=== PATIENT | male | born 1945 | race Caucasian/White ===

== ENCOUNTER 2020-12-07 16:01 | Inpatient (IN) | payer MEDICARE, OTHER ==
[~2020-12-07] VITALS: Ht 185.5 cm; Wt 57.0 kg
[2020-12-07] MEDS ORDERED: HYDR-3820 PO (16:05)
[2020-12-07 17:00] VITALS: BP 134/82
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
[2020-12-07 20:00] VITALS: BP 132/61
[2020-12-08 07:30] VITALS: BP 115/58
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
[2020-12-08] MEDS ORDERED: FLEET ENEMA ADULT 1 EA BTL PR PRN (12:15)
[2020-12-08] MEDS ORDERED: ALPRAZolam 0.25 MG (XANAX) TAB PO PRN (12:15)
[2020-12-08] MEDS ORDERED: LACTULOSE SYRUP 10GM/15ML (ENULOSE) 30ML UDC PO PRN (12:15)
[2020-12-08] MEDS ORDERED: diphenhydrAMINE 25 MG TAB (BENADRYL) PO PRN (12:15)
[2020-12-08] MEDS ORDERED: LOPERAMIDE 2 MG (IMODIUM) TABLET PO PRN (12:15)
[2020-12-08] MEDS ORDERED: guaiFENesin/CODEINE (ROBITUSSIN AC) 10ML UDC PO PRN (12:15)
[2020-12-08] MEDS ORDERED: MELATONIN 3 MG TABLET PO PRN (12:15)
[2020-12-08] MEDS ORDERED: CALCIUM CARBONATE 500 MG (TUMS) TAB.CHEW PO PRN (12:15)
[2020-12-08] MEDS ORDERED: ACETAMINOPHEN 325 MG TABLET PO PRN (12:15)
[2020-12-08] MEDS ORDERED: CATHETER FLUSH 10 ML SYR IV PRN (12:15)
[2020-12-08] MEDS ORDERED: DOCUSATE SODIUM 100 MG (COLACE) CAP PO PRN (12:15)
[2020-12-08] MEDS: CATHETER FLUSH 10 ML SYR IV SCH ×2 (13:17→22:53)
[2020-12-08] MEDS: BISACODYL 10 MG SUPP (DULCOLAX) PR PRN (14:54)
[2020-12-08 20:00] VITALS: BP 118/61
[2020-12-08] MEDS: DOCUSATE SODIUM 100 MG (COLACE) CAP PO SCH (20:14)
[2020-12-08] MEDS: polyethylene glycoL POWDER 17 GM (MIRALAX) PACK PO SCH (20:14)
[2020-12-08] MEDS: SENNA W/DOCUSATE (SENOKOT S) TABLET PO SCH (20:20)
[2020-12-09] MEDS: CATHETER FLUSH 10 ML SYR IV SCH ×3 (06:09→21:46)
[2020-12-09 06:13] LABS: HEMATOCRIT 30 % (40-54); MEAN CORPUSCULAR VOLUME 90 fL (80-99)
[2020-12-09 06:15] LABS: BASOPHILS % (AUTO) 0 % (0-10); EOSINOPHILS # (AUTO) 0.1 10^3/uL (0.0-0.3); EOSINOPHILS % (AUTO) 2 % (0-10); HEMOGLOBIN 9.7 g/dL (13.3-17.7); LYMPHOCYTES # (AUTO) 0.9 10^3/uL (1.0-4.0); LYMPHOCYTES % (AUTO) 11 % (12-44); MEAN CORPUSCULAR HEMOGLOBIN 30 pg (25-34); MEAN CORPUSCULAR HGB CONC 33 g/dL (32-36); MONOCYTES # (AUTO) 0.6 10^3/uL (0.0-1.0); MONOCYTES % (AUTO) 7 % (0-12); NEUTROPHILS # (AUTO) 6.3 10^3/uL (1.8-7.8); NEUTROPHILS % (AUTO) 80 % (42-75); PLATELET COUNT 103 10^3/uL (130-400); WHITE BLOOD COUNT 7.9 10^3/uL (4.3-11.0)
[2020-12-09 06:27] LABS: CHLORIDE 101 MMOL/L (98-107); POTASSIUM 3.9 MMOL/L (3.6-5.0); SODIUM 137 MMOL/L (135-145)
[2020-12-09 06:28] LABS: CALCIUM 8.4 MG/DL (8.5-10.1)
[2020-12-09 06:29] LABS: GLUCOSE 92 MG/DL (70-105)
[2020-12-09 06:30] LABS: TOTAL PROTEIN 5.7 GM/DL (6.4-8.2)
[2020-12-09 06:31] LABS: BILIRUBIN,TOTAL 0.6 MG/DL (0.1-1.0); CARBON DIOXIDE 26 MMOL/L (21-32)
[2020-12-09 06:33] LABS: ALKALINE PHOSPHATASE 61 U/L (40-136); CREATININE SERUM 0.62 MG/DL (0.60-1.30); GFR ESTIMATED > 60
[2020-12-09 06:34] LABS: BUN/CREATININE RATIO 21
[2020-12-09 06:36] LABS: ALANINE AMINOTRANSFERASE 11 U/L (0-55)
[2020-12-09 07:18] VITALS: BP 118/69
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
--- NOTE | 2020-12-09 08:20 | Individualized Plan of Care ---
Individualized Plan of Care Rehab Nursing IPOC Order Admission Date Dec 07, 2020 at 17:04 Current Orders Orders Admission Arrival Bed Request (12/07/20 17:04) Hydrocodone/Apap 10/325 Tablet (Lortab 1 (12/07/20 17:45) General/Regular (12/07/20 Dinner) Incentive Spirometry Initial (12/07/20 19:18) Incentive Spirometry (Nursing) Q2H (12/07/20 19:18) Patient Visit (12/08/20 ) Pt Eval High Complexity (12/08/20 ) Functional Activities, Ea 15 (12/08/20 ) Sodium Chloride Flush (Catheter Flush Sy (12/08/20 12:15) Sodium Chloride Flush (Catheter Flush Sy (12/08/20 14:00) Admission Order(Inpt,Obs,Sdc) (12/08/20 12:11) Vital Signs: Per Unit Policy ( ,16,00 (12/08/20 12:11) Marciano Hose (12/08/20 12:11) Sequential Compression Device .admit (12/08/20 12:11) Transportation Aid-Inpt Rehab Con (12/08/20 12:11) Rehab Nursing Orders-Ipoc (12/08/20 12:11) Physical Therapy Rehab Orders (12/08/20 12:11) Occupational Therapy Rehab Ord (12/08/20 12:11) Speech Therapy Rehab Orders (12/08/20 12:11) Cbc With Automated Diff (12/09/20 06:00) Comprehensive Metabolic Panel (12/09/20 06:00) Precautions (Aru) (12/08/20 12:11) Rehab-Intensity Of Therapy (12/08/20 12:11) Initiate Admission Nursing Pro .admission (12/08/20 12:11) Acetaminophen Tablet/Caplet (Tylenol T (12/08/20 12:15) Alprazolam Tablet (Xanax Tablet) (12/08/20 12:15) Calcium Carbonate Chew Tablet (Antacid C (12/08/20 12:15) Diphenhydramine Tablet (Benadryl Tablet) (12/08/20 12:15) Docusate Sodium Capsule (Colace Capsule) (12/08/20 21:00) Docusate Sodium Capsule (Colace Capsule) (12/08/20 12:15) Bisacodyl Suppository (Dulcolax Supposit (12/08/20 12:15) Lactulose Oral Solution (Enulose Oral So (12/08/20 12:15) Na Phos/Na Biphos Enema (Fleet Enema Jacob (12/08/20 12:15) Guaifenesin/Codeine Syrup (Robitussin Ac (12/08/20 12:15) Loperamide Tablet (Imodium Tablet) (12/08/20 12:15) Melatonin Tablet (Melatonin Tablet) (12/08/20 12:15) Polyethylene Glycol Powder Pkt (Miralax (12/08/20 21:00) Ondansetron Oral Dissolve Tab (Zofran (12/08/20 12:15) Senna S Tablet (Senokot S Tablet) (12/08/20 21:00) Initiate Admission Nursing Pro .admission (12/08/20 12:11) Patient Visit (12/08/20 ) Pt Eval High Complexity (12/08/20 ) Functional Activities, Ea 15 (12/08/20 ) Nursing Communication (Order) UD (12/08/20 17:11) Abdomen, Flat & Upright/Decub (12/09/20 17:55) Clear Liquid (12/09/20 Dinner) Soap Suds Enema (12/09/20 19:14) Rehab Nursing Orders: Ongoing Assess. of Function Status, Bladder Management, Bladder Scan, Bladder Training, Bowel Management, Bowel Training, Disease Management & Educaiton, DVT Prophylaxis, Fall Prevention, Fluid/Electrolyte/Nutrition Mgmt, Infection Prevention, Medication Management & Education, Management of Risks & Complications, Management of Skin Intergrity, Nutrition Management, Pain Management, Patient/Family Support, Safety Man agement, Wound Management Intensity of Therapy to be met Patient to be seen: Min.3h per day/5 of 7d PT IPOC Problem List: Activity Tolerance, Functional Strength, Safety, Balance, Gait, Transfer, Bed Mobility, ROM Treatment Plan: Continue Plan of Care Bed Mobility, Education, Functional Activity Marc, Functional Strength, Group Therapy, Gait, Safety, Therapeutic Exercise, Transfers, Other Treatment Duration: Jan 05, 2021 Frequency: At least 5 of 7 days/Wk (IRF) Estimated Hrs Per Day: 1.5 hours per day OT IPOC Problems: Decreased Activ Tolerance, Decreased Safety Aware, Decreased UE Strength, Dependent Transfers, Impaired Bed Mobility, Impaired Coordination, Impaired Funct Balance, Impaired I ADL's, Impaired Self-Care Skills, Restricted Funct UE ROM OT Treatment, Training and Edu: Yes Plan of Care: ADL Retraining, Functional Mobility, UE Funct Exercise/Act Treatment Duration: Jan 05, 2021 Frequency: At least 5 of 7 days/Wk (IRF) Estimated Hrs Per Day: 1.[address] IPOC Speech Therapy Treatment Plan: Discontinue ST Treatment Duration: Dec 07, 2020 Frequency: Modified Program (IRF) Estimated Hrs Per Day: Other Transportation Aid/Case Mgmt Transportation Aid/Case Managemen: Discharge Planning Dietitian/Abstract Searcher Dietitian/Abstract Searcher to monitor nutritional status and make changes and/or recommendations as needed and work with speech pathology on dietary upgrades as the occur. Physician IPOC Medical Issues being managed closely and that require the 24 hour availability of a physician: Severe back pain with history of obstipation with current postop constipation and urinary retention with Ramirez catheter maintenance with bilateral upper extremity amputations will need close monitoring for decompensation Medical Issues: Bowel/Bladder Function, DVT Prophylaxis, Falls Precautions, Fluid/Electrolyte/Nutrition Balance, Infection Protection, Pain Management Brief Synthesis of Preadmission Screen, Post-Admission Evaluation, and Therapy Evaluations: PT and OT will focus on regaining function with ADLs with help of assistive devices in order to regain enough function for independent living and increased ambulation Medical Prognosis: Good Anticipated Length of Stay: 10 days KARL CAMPBELL DO Dec 09, 2020 08:20
[2020-12-09] MEDS: SENNA W/DOCUSATE (SENOKOT S) TABLET PO SCH ×2 (08:56→21:43)
[2020-12-09] MEDS: DOCUSATE SODIUM 100 MG (COLACE) CAP PO SCH ×2 (08:57→21:43)
[2020-12-09] MEDS: polyethylene glycoL POWDER 17 GM (MIRALAX) PACK PO SCH ×2 (08:57→21:43)
--- NOTE | 2020-12-09 18:39 | Diagnostic Imaging Report ---
EXAMINATION: Abdomen 2 view. HISTORY: Emesis and constipation. COMPARISON: None available. FINDINGS: There is instrumented lumbar spine fusion with disc prostheses at multiple levels. Large volume of stool is present in the colon. No free air is seen. The colon is upper limits of normal in caliber. There are no dilated loops of small bowel. IMPRESSION: Large-volume stool without dilated bowel or free air. Dictated by: Dictated on workstation # [id number]
[2020-12-09 20:00] VITALS: BP 117/75
[2020-12-09] MEDS: ONDANSETRON 4 MG (ZOFRAN) ORAL DISSOLVE TAB PO PRN (23:26)
[2020-12-10] MEDS: CATHETER FLUSH 10 ML SYR IV SCH ×3 (06:31→21:50)
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
[2020-12-10 08:00] VITALS: BP 131/80
[2020-12-10] MEDS: DOCUSATE SODIUM 100 MG (COLACE) CAP PO SCH ×2 (08:50→21:49)
[2020-12-10] MEDS: polyethylene glycoL POWDER 17 GM (MIRALAX) PACK PO SCH ×2 (08:50→21:49)
[2020-12-10] MEDS: SENNA W/DOCUSATE (SENOKOT S) TABLET PO SCH ×2 (08:50→21:49)
[2020-12-10] MEDS: ONDANSETRON 4 MG (ZOFRAN) ORAL DISSOLVE TAB PO PRN (09:35)
--- NOTE | 2020-12-10 09:46 | Physical Therapy Daily Note ---
PT Daily Note-Current Subjective Patient in bed pre tx, agrees to PT, has 5/10 pain in back and 7/10 pain in left leg. Appearance Patient in WC post tx at bedside with nurse call, has OT in about 15 min Mental Status Patient Orientation: Normal For Age bilateral arm prosthesis, back brace Transfers SCALE: Activities may be completed with or without assistive devices. 2-Vozhnjzbjw-wxsimkb completes the activity by him/herself with no assistance from a helper. 5-Set-up or Clean-up Assistance-helper sets up or cleans up; patient completes activity. [place] assists only prior to or following the activity. 4-Supervision or Touching Assistance-helper provides verbal cues and/or touching/steadying and/or contact guard assistance as patient completes activity. Assistance may be provided throughout the activity or intermittently. 3-Partial/Moderate Assistance-helper does LESS THAN HALF the effort. [place] lifts, holds or supports trunk or limbs, but provides less than half the effort. 2-Substantial/Maximal Assistance-helper does MORE THAN HALF the effort. [place] lifts or holds trunk or limbs and provides more than half the effort. 2-Lgvvruvuy-ufklsw does ALL the effort. Patient does none of the effort to complete the activity. Or, the assistance of 2 or more helpers is required for the patient to complete the activity. If activity was not attempted, code reason: 7-Patient Refused. 9-Not Applicable-not attempted and the patient did not perform the activity before the current illness, exacerbation or injury. 10-Not Attempted due to Environmental Limitations-(lack of equipment, weather restraints, etc.). 88-Not Attempted due to Medical Conditions or Safety Concerns. Roll Left & Right (QC): 5 Lying to Sitting/Side of Bed(Q: 3 Sit to Stand (QC): 3 Chair/Lvm-sm-Yunbr Xfer(QC): 3 min assist for sit to stand Weight Bearing Weight Bearing/Tolerated Weight Bearing/Tolerated Gait Training Distance: 40'x2, 20' Walk 10 feet (QC): 4 Gait Persons Needed: 1 Gait Assistive Device: FWW uncoordinated steps Wheelchair Training patient has difficulty pushing WC due to arm prosthesis Exercises sit to stand from elevated therapy table 2 sets of 5 Treatments bed mobility and transfers, ambulation, functional strengthening Assessment Current Status: Fair Progress improved ambulation but patient takes extra time for setup due to his arm prosthesis PT Short Term Goals Short Term Goals Time Frame: Dec 22, 2020 Roll Left & Right: 6 Sit to lyin Lying to sitting on side of be: 6 Sit to stand: 3 Chair/cql-jz-oywdn transfer: 3 Walk 10 feet: 3 Walk 50 feet with two turns: 3 Walk 150 feet: 3 1 step (curb): 3 PT Residential Goals Residential Goals PT Residential Goals Time Frame: Jan 05, 2021 Roll Left & Right (QC): 6 Sit to Lying (QC): 6 Lying-Sitting on Side/Bed(QC): 6 Sit to Stand (QC): 6 Chair/Xdf-ap-Krxsk Xfer(QC): 6 Toilet Transfer (QC): 6 Car Transfer (QC): 6 Does the Patient Walk: Yes Walk 10 feet (QC): 6 Walk 50ft with 2 Turns (QC): 6 Walk 150 ft (QC): 6 Walking 10ft on Uneven Surface: 6 1 Step (curb) (QC): 4 4 Steps (QC): 4 12 Steps (QC): 4 Picking up an Object (QC): 4 Wheel 50 feet with 2 turns (QC: 9 Wheel 150 feet: 9 PT Plan Problem List Problem List: Activity Tolerance, Functional Strength, Safety, Balance, Gait, Transfer, Bed Mobility, ROM Treatment/Plan Treatment Plan: Continue Plan of Care Treatment Plan: Bed Mobility, Education, Functional Activity Marc, Functional Strength, Group Therapy, Gait, Safety, Therapeutic Exercise, Transfers, Other Treatment Duration: Jan 05, 2021 Frequency: At least 5 of 7 days/Wk (IRF) Estimated Hrs Per Day: 1.5 hours per day Patient and/or Family Agrees t: Yes Safety Risks/Education Patient Education: Gait Training, Transfer Techniques, Correct Positioning, Safety Issues Teaching Recipient: Patient Teaching Methods: Demonstration, Discussion Response to Teaching: Reinforcement Needed Time/GCodes Time In: 0800 Time Out: 0845 Total Billed Treatment Time: 45 Total Billed Treatment 1 visit EX 10' FA 35' RORY FRANCOIS PT Dec 10, 2020 09:46
--- NOTE | 2020-12-10 09:56 | Occupational Ther Daily Note ---
OT Current Status-Daily Note Subjective No pain reported, but pt. does report nausea at end of session. Nursing gives Zofran. Appearance Pt. up in chair after PT. Agrees to work with OT. Mental Status/Objective Patient Orientation: Person, Place, Time, Situation ADL-Treatment Therapy Code Descriptions/Definitions Functional [place] Measure: 0=Not Assessed/NA 4=Minimal Assistance 1=Total Assistance 5=Supervision or Setup 2=Maximal Assistance 6=Modified [place] 3=Moderate Assistance 7=Complete IndependenceSCALE: Activities may be completed with or without assistive devices. 9-Jvicmcglbg-ucexlvt completes the activity by him/herself with no assistance from a helper. 5-Set-up or Clean-up Assistance-helper sets up or cleans up; patient completes activity. [place] assists only prior to or following the activity. 4-Supervision or Touching Assistance-helper provides verbal cues and/or touching/steadying and/or contact guard assistance as patient completes activity. Assistance may be provided throughout the activity or intermittently. 3-Partial/Moderate Assistance-helper does LESS THAN HALF the effort. [place] lifts, holds or supports trunk or limbs, but provides less than half the effort. 2-Substantial/Maximal Assistance-helper does MORE THAN HALF the effort. [place] lifts or holds trunk or limbs and provides more than half the effort. 2-Vtewnmsez-qwodzf does ALL the effort. Patient does none of the effort to complete the activity. Or, the assistance of 2 or more helpers is required for the patient to complete the activity. If activity was not attempted, code reason: 7-Patient Refused. 9-Not Applicable-not attempted and the patient did not perform the activity before the current illness, exacerbation or injury. 10-Not Attempted due to Environmental Limitations-(lack of equipment, weather restraints, etc.). 88-Not Attempted due to Medical Conditions or Safety Concerns. Eating (QC): 5 Oral Hygiene (QC): 4 Shower/Bathe Self (QC): 2 (OT adapted LH sponge.) Upper Body Dressing (QC): 2 (Min assist to don shirt, max assist with prosthetic arms due to back precautions. Dependent assist with back brace.) Lower Body Dressing (QC): 2 On/Off Footwear: 2 (OT adapted LH dressing stick. Pt. able to doff slipper socks with max cues, but requires dependent assist to don. ) Other Treatment Pt. up in chair. OT sets up sponge bath and assists pt. with UE bathing. Pt. unable to assist self, as he uses a specific system at home in his shower. Pt. has difficulty doffing/donning prosthetic UE due to back safety. Pt. also unable to doff/don back brace. OT will need to modify and add loops for grasp with prosthesis. Pt. became nauseated quickly, requiring OT to give bucket. Pt. does not vomit, but nursing notified immediately. Gave pt. Zofran. Transferred sit-stand with max assist from chair and OT donned pants over hips. Transferred to bed with mod assist. Max sit-supine. All needs met. Education OT Patient Education: Correct positioning, Modified ADL techniques, Progress toward Goal/Update tx plan, Purpose of tx/functional activities, Reviewed precautions, Rehab process, Transfer techniques Teaching Recipient: Patient Teaching Methods: Demonstration, Discussion Response to Teaching: Verbalize Understanding, Return Demonstration OT Short Term Goals Short Term Goals Time Frame: Dec 22, 2020 Eatin Oral hygiene: 6 Toileting hygiene: 3 Shower/bathe self: 3 Upper body dressin Lower body dressin Putting on/taking off footwear: 3 OT Protective Signal Superintendent Goals Protective Signal Superintendent Goals Time Frame: Jan 05, 2021 Eating (QC): 6 Oral Hygiene (QC): 6 Toileting Hygiene (QC): 6 Shower/Bathe Self (QC): 5 Upper Body Dressing (QC): 6 Lower Body Dressing (QC): 6 On/Off Footwear (QC): 6 Additional Goals: 1-Demonstrate ADL Tasks, 2-Verbalize Understanding, 3- ImproveStrength/Marc 1=Demonstrate adherence to instructed precautions during ADL tasks. 2=Patient will verbalize/demonstrate understanding of assistive devices/modifications for ADL. 3=Patient will improve strength/tolerance for activity to enable patient to perform ADL's. OT Education/Plan Problem List/Assessment Assessment: Decreased Activ Tolerance, Decreased UE Strength, Dependent Transfers, Impaired Coordination, Impaired Funct Balance, Impaired I ADL's, Impaired Self-Care Skills Discharge Recommendations Plan/Recommendations: Continue POC Therapy Discharge Recommendati: Post Acute OT Equpiment Recommendations-D/C: Hip Kit Treatment Plan/Plan of Care Treatment,Training & Education: Yes Patient would benefit from OT for education, treatment and training to promote independence in ADL's, mobility, safety and/or upper extremity function for ADL's. Plan of Care: ADL Retraining, Functional Mobility, UE Funct Exercise/Act Treatment Duration: Jan 05, 2021 Frequency: At least 5 of 7 days/Wk (IRF) Estimated Hrs Per Day: 1.5 hours per day Agreement: Yes Rehab Potential: Fair Time/GCodes Start Time: 08:50 Stop Time: 09:50 Total Time Billed (hr/min): 60 Billed Treatment Time 1, ADL x 60minutes NESTOR ORTEZ OT Dec 10, 2020 09:56
--- NOTE | 2020-12-10 11:49 | ST Cognitive Linguistic Eval ---
Speech Evaluation-General Medical Diagnosis Lumbar interbody fusion L2-3, L3-4 DLIF, Posterior L4-S1 TLIF/L2-S1 Lami Onset Date: Dec 06, 2020 Therapy Diagnosis Therapy Diagnosis: Cognitive-communication Precautions Precautions: Fall Precautions/Isolations: Fall Prevention, Pressure Ulcer Referral Referring Physician: Dr. Ledesma Medical History Reviewed History: Yes Social History Current Living Status: Alone Speech PLF-Current Status Prior Level of Function Patient lives home alone where he is independent for his daily needs. Subjective Patient was pleasant and cooperative with his cognitive assessment. Language Eval: Auditory Comprehends Simple Yes/No Ques: Functional Indent/Objects Multiple [place]: Functional Ident/Pics in Multiple [place]: Functional Follows 1-Step Commands: Functional Follows Complex Directions: Functional Follows General Conversations: Functional Language Eval: Verbal Language Completes Spontaneous Greeting: Functional Produces Auto, Serial Info: Functional Imitates Simple Words/Phrases: Functional Word Finding: Functional Requests Basic Needs: Functional States Basic Personal Info: Functional Expresses Complex Ideas: Functional Objective Cognitive Domain Attention: WNL Memory: WNL Problem Solving: Functional Executive Functions: WNL Visuospatial Skills: WNL Composite Severity Rating: WNL Objective Formal/Standardized Tests [facility] Mental Status ([facility]) Results 25/26, within normal range, did not have patient complete clock drawing due to prosthetic arms Oral Motor/Speech Production Within Normal Limits Impression Patient is a pleasant 75 y/o male who was admitted to the ARU s/p spinal fusion. The patient was given the SLUMS with a score of 25/26 obtained. The patient was not asked to complete the clock drawing due to prosthetic arms from an accident in the 's. Patient's score is within normal range of function and does not indicate a need for further ST services. Speech Patient Assess Expression of Ideas/Wants: Expression (4) Understanding Verbal Content: Understands (4) Brief Interview-Mental Status: Yes Repetition of Three Words: Three (3) Temporal Orientation: Year: Correct (3) Temporal Orientation: Month: Accurate within 5 days(2) Temporal Orientation: Day: Correct (1) Recall : Wear to say "Sock": Yes, no cue required (2) Recall : Color: Yes, after cueing (1) Recall : Bed: Yes,after cueing (1) Memory/Recall Ability: Current season, That he or she is in a hsp/hsp unit Speech-Plan Patient/Family Goals Patient/Family Goals: Patient plans on returning to his home where he lives alone. Treatment Plan Speech Therapy Treatment Plan: Discontinue ST Treatment Duration: Dec 07, 2020 Frequency: 1 time per week Estimated Hrs Per Day: .5 hour per day Rehab Potential: Fair Barriers to Learning: Patient's debility, age No cognitive deficits noted Pt/Family Agrees to Plan: Yes Safety Risks/Education Teaching Recipient: Patient Teaching Methods: Discussion Response to Teaching: Verbalize Understanding Education Topics Provided: Safety within his room and communication of wants/needs Time Speech Therapy Time In: 11:30 Speech Therapy Time Out: 12:00 Total Billed Time: 30 Billed Treatment Time 1, FRANCHESKA MARK [address] Dec 10, 2020 11:49
--- NOTE | 2020-12-10 12:21 | Diagnostic Imaging Report ---
EXAMINATION: Supine abdomen at 10:41 a.m. INDICATION: Constipation. Two supine views were obtained. As noted on the prior exam of 12/09/2020 there is gas in both the large and small bowel in a nonspecific fashion. The prior study also suggests a large volume of stool within the colon. In the interval since the prior exam much of the fecal material within the colon has cleared. There is still at least a moderate amount of residual fecal material present, particularly in the rectosigmoid portion. No other abnormalities identified. The orthopedic hardware overlying the lumbar spine and the radiopaque line coursing over the left upper quadrant seen previously are again evident and no different. IMPRESSION: The appearance of the abdomen has improved since the prior exam as there is much less fecal material within the colon. There is still at least a moderate amount of residual fecal material present however. A follow-up study would be recommended for continued evaluation if clinically indicated. Dictated by: Dictated on workstation # [id number]
--- NOTE | 2020-12-10 14:33 | Therapy Group Daily Note ---
Therapy Daily Group Note Patient Education Topic Exercises, Other List Below (intro to rehab) Exercises UE Exercise Session Ratio (pt:therapist): 4:1 Goal of Session: Education on ARU Expectations, Memory Strategies, UE/LE Strengthing Education on ARU Expectations, Memory Strategies, UE/LE Strengthing Goal Met for this Session: Yes Pt Benefit of Group: Contributions to Others, Increased Functional Strength, Improved Cognition, Recognition of Peers, Socialization Contributions to Others, Increased Functional Safety, Increased Functional Strength, Improved Cognition, Recognition of Peers, Socialization Other/Notes Using w/c, pt propelled to OT/PT group at [facility]. Group consisted of introductions(name, place born, first memory), socialization, patient introduced to the purpose and expectations of rehab and performed a memory exercise with UE exercise and educated on memory strategies. Pt introduced self appropriately and actively listened to peers. Pt acknowledged understanding of educational topics by giving own examples. 5 words given for memory task-dog, padmini, 6, burrito, guitar. After session, pt in WC at bedside with call light/phone in reach. All needs met in room. Start Time: 13:00 Stop Time: 14:00 Total Billed Treatment Time: 60 Total Billed Treatment 1 visit RORY VICK PT Dec 10, 2020 14:33
[2020-12-10] MEDS ORDERED: HYDR-3817 PO ×2 (15:11)
[2020-12-10] MEDS: BISACODYL 10 MG SUPP (DULCOLAX) PR PRN (16:55)
[2020-12-10] MEDS: TAMSULOSIN 0.4 MG (FLOMAX) CAP PO SCH (16:57)
[2020-12-10 20:00] VITALS: BP 126/66
[2020-12-11] MEDS: CATHETER FLUSH 10 ML SYR IV SCH ×3 (06:26→22:06)
[2020-12-11 07:50] VITALS: BP 156/75
[2020-12-11] MEDS: SENNA W/DOCUSATE (SENOKOT S) TABLET PO SCH ×2 (08:07→21:42)
[2020-12-11] MEDS: DOCUSATE SODIUM 100 MG (COLACE) CAP PO SCH ×2 (08:07→21:42)
[2020-12-11] MEDS: polyethylene glycoL POWDER 17 GM (MIRALAX) PACK PO SCH ×2 (08:07→21:42)
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
--- NOTE | 2020-12-11 11:14 | Physical Therapy Daily Note ---
PT Daily Note-Current Subjective Patient in shower pre tx, already working with OT, has no complaints of pain, will be co-treating with OT due to poor patient mobility, strength, endurance, coordinate UE and LE during activity, safety and reduce risk of falls. Appearance Patient in recliner post tx with nurse call, phone, tray, all needs met. Mental Status Patient Orientation: Person, Place, Situation BLE prosthesis, back brace Transfers SCALE: Activities may be completed with or without assistive devices. 3-Unsjgbdroq-srffkqe completes the activity by him/herself with no assistance from a helper. 5-Set-up or Clean-up Assistance-helper sets up or cleans up; patient completes activity. [place] assists only prior to or following the activity. 4-Supervision or Touching Assistance-helper provides verbal cues and/or touching/steadying and/or contact guard assistance as patient completes a ctivity. Assistance may be provided throughout the activity or intermittently. 3-Partial/Moderate Assistance-helper does LESS THAN HALF the effort. [place] lifts, holds or supports trunk or limbs, but provides less than half the effort. 2-Substantial/Maximal Assistance-helper does MORE THAN HALF the effort. [place] lifts or holds trunk or limbs and provides more than half the effort. 6-Quritlotv-gplvwq does ALL the effort. Patient does none of the effort to complete the activity. Or, the assistance of 2 or more helpers is required for the patient to complete the activity. If activity was not attempted, code reason: 7-Patient Refused. 9-Not Applicable-not attempted and the patient did not perform the activity before the current illness, exacerbation or injury. 10-Not Attempted due to Environmental Limitations-(lack of equipment, weather restraints, etc.). 88-Not Attempted due to Medical Conditions or Safety Concerns. Sit to Stand (QC): 3 Chair/Khf-jk-Hrcbz Xfer(QC): 4 Patient needs mod assist for sit to stand but performs transfers with CGA after that and cues for positioning and safety. After finishing shower patient stands for LE dressing and to get dressing on back changed by nurse , patient sits and finishes dressing and then ambulates. Weight Bearing Weight Bearing/Tolerated Weight Bearing/Tolerated Gait Training Distance: 120'x2 Walk 10 feet (QC): 4 Walk 50 ft with 2 Turns(QC): 4 Gait Assistive Device: FWW WC following, min assist one time for a LOB due to knee buckling but otherwise is close CGA and steadying, patient ambulates and steps with decreased coordination. Also after ambulating to the therapy gym patient practiced donning and doffing brace with therapist direction. Treatments PT performed transfers, ambulation, standing during bathing and dressing, brace don/doff direction, OT performed bathing, dressing, UE positioning and safety during activity, brace don/doff direction Assessment Current Status: Fair Progress improving endurance PT Short Term Goals Short Term Goals Time Frame: Dec 22, 2020 Roll Left & Right: 6 Sit to lyin Lying to sitting on side of be: 6 Sit to stand: 3 Chair/hkb-ad-fmhzk transfer: 3 Walk 10 feet: 3 Walk 50 feet with two turns: 3 Walk 150 feet: 3 1 step (curb): 3 PT Shelter Goals Shelter Goals PT Hand Cloth Folder Goals Time Frame: Jan 05, 2021 Roll Left & Right (QC): 6 Sit to Lying (QC): 6 Lying-Sitting on Side/Bed(QC): 6 Sit to Stand (QC): 6 Chair/Qfx-sh-Jrjdo Xfer(QC): 6 Toilet Transfer (QC): 6 Car Transfer (QC): 6 Does the Patient Walk: Yes Walk 10 feet (QC): 6 Walk 50ft with 2 Turns (QC): 6 Walk 150 ft (QC): 6 Walking 10ft on Uneven Surface: 6 1 Step (curb) (QC): 4 4 Steps (QC): 4 12 Steps (QC): 4 Picking up an Object (QC): 4 Wheel 50 feet with 2 turns (QC: 9 Wheel 150 feet: 9 PT Plan Problem List Problem List: Activity Tolerance, Functional Strength, Safety, Balance, Gait, Transfer, Bed Mobility, ROM Treatment/Plan Treatment Plan: Continue Plan of Care Treatment Plan: Bed Mobility, Education, Functional Activity Marc, Functional Strength, Group Therapy, Gait, Safety, Therapeutic Exercise, Transfers, Other Treatment Duration: Jan 05, 2021 Frequency: At least 5 of 7 days/Wk (IRF) Estimated Hrs Per Day: 1.5 hours per day Patient and/or Family Agrees t: Yes Safety Risks/Education Patient Education: Gait Training, Transfer Techniques, Correct Positioning, Reviewed Don/Doff Brace, Safety Issues Teaching Recipient: Patient Teaching Methods: Demonstration, Discussion Response to Teaching: Reinforcement Needed Time/GCodes Time In: 1000 Time Out: 1100 Total Billed Treatment Time: 60 Total Billed Treatment 1 visit GT 20' FA 40' RORY FRANCOIS PT Dec 11, 2020 11:14
--- NOTE | 2020-12-11 12:08 | CONSULTATION REPORT ---
DATE OF SERVICE: 12/11/2020 ATTENDING PHYSICIAN: Dr. Ledesma. SUMMARY: A 75-year-old white man, who underwent extensive spinal surgery. HISTORY AND PHYSICAL: As dictated. He had trouble urinating with a failed trial of voiding. We inserted a catheter in him and yesterday started him on Flomax. The patient denies any voiding symptoms at home. He has always troubled according to him voiding in the hospital, especially after surgery's what he calls shy bladder. He has never seen a urologist before. I reviewed his history and physical. IMPRESSION: Urinary retention, benign prostatic hyperplasia and/or neurogenic bladder. PLAN: Continue Flomax. Tomorrow at bedside, we will perform a flexible cystoscopy under local and manage accordingly. I explained the procedure and the plan completely to the patient. Job ID: [id number] DocumentID: [id number] Dictated Date: 12/11/2020 10:04:42 Instructor Private Date: 12/11/2020 12:08:18 Dictated By: LISA FUENTES MD MTDD
--- NOTE | 2020-12-11 13:47 | Physical Therapy Daily Note ---
PT Daily Note-Current Subjective Patient in recliner pre tx, agrees to PT, voices no complaints of pain. Appearance Patient in bed post tx with nurse call, phone, tray, all needs met. Mental Status Patient Orientation: Normal For Age Attachments: Drains, Ramirez Catheter Transfers SCALE: Activities may be completed with or without assistive devices. 3-Pklisncqck-yhvqcgf completes the activity by him/herself with no assistance from a helper. 5-Set-up or Clean-up Assistance-helper sets up or cleans up; patient completes activity. [place] assists only prior to or following the activity. 4-Supervision or Touching Assistance-helper provides verbal cues and/or touching/steadying and/or contact guard assistance as patient completes activity. Assistance may be provided throughout the activity or intermittently. 3-Partial/Moderate Assistance-helper does LESS THAN HALF the effort. [place] lifts, holds or supports trunk or limbs, but provides less than half the effort. 2-Substantial/Maximal Assistance-helper does MORE THAN HALF the effort. [place] lifts or holds trunk or limbs and provides more than half the effort. 6-Pvxgakdjv-zouppd does ALL the effort. Patient does none of the effort to complete the activity. Or, the assistance of 2 or more helpers is required for the patient to complete the activity. If activity was not attempted, code reason: 7-Patient Refused. 9-Not Applicable-not attempted and the patient did not perform the activity before the current illness, exacerbation or injury. 10-Not Attempted due to Environmental Limitations-(lack of equipment, weather restraints, etc.). 88-Not Attempted due to Medical Conditions or Safety Concerns. Roll Left & Right (QC): 6 Sit to Lying (QC): 3 Sit to Stand (QC): 3 Chair/Iep-xx-Wktxi Xfer(QC): 4 Weight Bearing Weight Bearing/Tolerated Weight Bearing/Tolerated Gait Training Distance: 120'x2 Walk 10 feet (QC): 4 Walk 50 ft with 2 Turns(QC): 4 Gait Persons Needed: 1 Gait Assistive Device: FWW slow, unsteady but no LOB Exercises NuStep Minutes: 10 NuStep Workload: 4 Treatments bed mobility and transfers, ambulation, functional strengthening Assessment Current Status: Fair Progress improving transfers PT Short Term Goals Short Term Goals Time Frame: Dec 22, 2020 Roll Left & Right: 6 Sit to lyin Lying to sitting on side of be: 6 Sit to stand: 3 Chair/vdr-va-qtuuq transfer: 3 Walk 10 feet: 3 Walk 50 feet with two turns: 3 Walk 150 feet: 3 1 step (curb): 3 PT Jail Goals Hides Inspector Goals PT Hides Inspector Goals Time Frame: Jan 05, 2021 Roll Left & Right (QC): 6 Sit to Lying (QC): 6 Lying-Sitting on Side/Bed(QC): 6 Sit to Stand (QC): 6 Chair/Cby-yj-Zqjwn Xfer(QC): 6 Toilet Transfer (QC): 6 Car Transfer (QC): 6 Does the Patient Walk: Yes Walk 10 feet (QC): 6 Walk 50ft with 2 Turns (QC): 6 Walk 150 ft (QC): 6 Walking 10ft on Uneven Surface: 6 1 Step (curb) (QC): 4 4 Steps (QC): 4 12 Steps (QC): 4 Picking up an Object (QC): 4 Wheel 50 feet with 2 turns (QC: 9 Wheel 150 feet: 9 PT Plan Problem List Problem List: Activity Tolerance, Functional Strength, Safety, Balance, Gait, Transfer, Bed Mobility, ROM Treatment/Plan Treatment Plan: Continue Plan of Care Treatment Plan: Bed Mobility, Education, Functional Activity Marc, Functional Strength, Group Therapy, Gait, Safety, Therapeutic Exercise, Transfers, Other Treatment Duration: Jan 05, 2021 Frequency: At least 5 of 7 days/Wk (IRF) Estimated Hrs Per Day: 1.5 hours per day Patient and/or Family Agrees t: Yes Safety Risks/Education Patient Education: Gait Training, Transfer Techniques, Correct Positioning, Reviewed Don/Doff Brace, Safety Issues Teaching Recipient: Patient Teaching Methods: Demonstration, Discussion Response to Teaching: Reinforcement Needed Time/GCodes Time In: 1300 Time Out: 1330 Total Billed Treatment Time: 30 Total Billed Treatment 1 visit EX 10' FA 20' RORY FRANCOIS PT Dec 11, 2020 13:46
--- NOTE | 2020-12-11 14:03 | Occupational Ther Daily Note ---
OT Current Status-Daily Note Subjective No pain reported. Mental Status/Objective Patient Orientation: Person, Place, Time, Situation ADL-Treatment Therapy Code Descriptions/Definitions Functional [place] Measure: 0=Not Assessed/NA 4=Minimal Assistance 1=Total Assistance 5=Supervision or Setup 2=Maximal Assistance 6=Modified [place] 3=Moderate Assistance 7=Complete IndependenceSCALE: Activities may be completed with or without assistive devices. 0-Qcncwcrgmg-jgsjuod completes the activity by him/herself with no assistance from a helper. 5-Set-up or Clean-up Assistance-helper sets up or cleans up; patient completes activity. [place] assists only prior to or following the activity. 4-Supervision or Touching Assistance-helper provides verbal cues and/or touching/steadying and/or contact guard assistance as patient completes activity. Assistance may be provided throughout the activity or intermittently. 3-Partial/Moderate Assistance-helper does LESS THAN HALF the effort. [place] lifts, holds or supports trunk or limbs, but provides less than half the effort. 2-Substantial/Maximal Assistance-helper does MORE THAN HALF the effort. [place] lifts or holds trunk or limbs and provides more than half the effort. 9-Exwaoyljm-tgtteg does ALL the effort. Patient does none of the effort to complete the activity. Or, the assistance of 2 or more helpers is required for the patient to complete the activity. If activity was not attempted, code reason: 7-Patient Refused. 9-Not Applicable-not attempted and the patient did not perform the activity before the current illness, exacerbation or injury. 10-Not Attempted due to Environmental Limitations-(lack of equipment, weather restraints, etc.). 88-Not Attempted due to Medical Conditions or Safety Concerns. Eating (QC): 6 Shower/Bathe Self (QC): 2 (Pt. showered this date. Due to set up of shower at this facility, pt. had difficulty with showering himself. OT assisted with all parts.) Upper Body Dressing (QC): 3 Lower Body Dressing (QC): 1 (Pt. required max assist to don pants over feet. Required assist of one person to help him balance in stance, and assist of another person to don pants over hips while he was standing with walker.) On/Off Footwear: 2 Other Treatment Pt seen this date for partial co-treatment with OT/PT due to need of skilled assessment x 2 clinicians. PT focused on transfers, mobility, and ambulation while OT assessed ADL skills and back safety. Pt. transferred supine-sit with mod assist, and then sit-stand with mod assist from elevated position to transfer to shower chair. Pt. taken to shower via chair and Pt. able to remove prosthetic arms and then shirt with min assist. OT assisted with showering, and then assisted with dressing tasks. Donned back brace and prosthetic arms and PT came in to assist with transfers and mobility. Provided assistance in stance while OT assisted with ADL skills. Pt. ambulated with walker with min assist to therapy gym. Sat in wheelchair and practiced doffing/donning back brace with prosthetic UE. Problem solved best way to do this at home. Pt. will have to lay brace on bed, and lay on top, rolling side to side to don. He demonstrated ability to fasten, with increased time and multiple trials. At this time, pt. unable to fully complete ADL skills at previous modified level at home without breaking back precautions, as he has to lean over and twist when his prosthetic arms are not on during shower, and when dressing LE with arms due to being unable to use all AE effectively. Will continue to problem solve with pt. and work on different methods for best practice. Ambulated back to room with walker and min assist. All needs met. Education OT Patient Education: Correct positioning, Modified ADL techniques, Progress toward Goal/Update tx plan, Purpose of tx/functional activities, Reviewed precautions, Rehab process, Transfer techniques Teaching Recipient: Patient Teaching Methods: Demonstration, Discussion Response to Teaching: Verbalize Understanding, Return Demonstration OT Short Term Goals Short Term Goals Time Frame: Dec 22, 2020 Eatin Oral hygiene: 6 Toileting hygiene: 3 Shower/bathe self: 3 Upper body dressin Lower body dressin Putting on/taking off footwear: 3 OT Senior Living Goals Social Media Director Goals Time Frame: Jan 05, 2021 Eating (QC): 6 Oral Hygiene (QC): 6 Toileting Hygiene (QC): 6 Shower/Bathe Self (QC): 5 Upper Body Dressing (QC): 6 Lower Body Dressing (QC): 6 On/Off Footwear (QC): 6 Additional Goals: 1-Demonstrate ADL Tasks, 2-Verbalize Understanding, 3- ImproveStrength/Marc 1=Demonstrate adherence to instructed precautions during ADL tasks. 2=Patient will verbalize/demonstrate understanding of assistive devices/modifications for ADL. 3=Patient will improve strength/tolerance for activity to enable patient to perform ADL's. OT Education/Plan Problem List/Assessment Assessment: Decreased Activ Tolerance, Dependent Transfers, Impaired Bed Mobility, Impaired Funct Balance, Impaired I ADL's, Impaired Self-Care Skills, Restricted Funct UE ROM Discharge Recommendations Plan/Recommendations: Continue POC Therapy Discharge Recommendati: Post Acute OT Treatment Plan/Plan of Care Treatment,Training & Education: Yes Patient would benefit from OT for education, treatment and training to promote independence in ADL's, mobility, safety and/or upper extremity function for ADL's. Plan of Care: ADL Retraining, Functional Mobility, UE Funct Exercise/Act Treatment Duration: Jan 05, 2021 Frequency: At least 5 of 7 days/Wk (IRF) Estimated Hrs Per Day: 1.5 hours per day Agreement: Yes Rehab Potential: Fair Time/GCodes Start Time: 09:30 Stop Time: 11:00 Total Time Billed (hr/min): 90 Billed Treatment Time 1, ADL x 60minutes, FA x 30minutes NESTOR ORTEZ OT Dec 11, 2020 14:03
[2020-12-11] MEDS: TAMSULOSIN 0.4 MG (FLOMAX) CAP PO SCH (17:20)
[2020-12-11 20:00] VITALS: BP 113/63
[2020-12-12] MEDS: CATHETER FLUSH 10 ML SYR IV SCH ×4 (06:23→20:18)
[2020-12-12] MEDS ORDERED: LIDOCAINE UROJET 2% GEL 10 ML PKG ONE (07:20)
[2020-12-12 08:00] VITALS: BP 99/58
[2020-12-12 08:26] VITALS: BP 139/64
[2020-12-12] MEDS: polyethylene glycoL POWDER 17 GM (MIRALAX) PACK PO SCH ×2 (08:47→20:13)
[2020-12-12] MEDS: DOCUSATE SODIUM 100 MG (COLACE) CAP PO SCH ×2 (08:47→20:13)
[2020-12-12] MEDS: SENNA W/DOCUSATE (SENOKOT S) TABLET PO SCH ×2 (08:47→20:13)
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
--- NOTE | 2020-12-12 12:57 | Physical Therapy Daily Note ---
PT Daily Note-Current Subjective Pt agreeable and motivated. Pt says (L) LE is feeling better. Pain rated 4/10 in LB. Mental Status Patient Orientation: Person, Place, Situation Transfers SCALE: Activities may be completed with or without assistive devices. 9-Axvwykmzui-rzvoibp completes the activity by him/herself with no assistance from a helper. 5-Set-up or Clean-up Assistance-helper sets up or cleans up; patient completes activity. [place] assists only prior to or following the activity. 4-Supervision or Touching Assistance-helper provides verbal cues and/or touching/steadying and/or contact guard assistance as patient completes activity. Assistance may be provided throughout the activity or intermittently. 3-Partial/Moderate Assistance-helper does LESS THAN HALF the effort. [place] lifts, holds or supports trunk or limbs, but provides less than half the effort. 2-Substantial/Maximal Assistance-helper does MORE THAN HALF the effort. [place] lifts or holds trunk or limbs and provides more than half the effort. 7-Okztfbfqj-zqidxm does ALL the effort. Patient does none of the effort to complete the activity. Or, the assistance of 2 or more helpers is required for the patient to complete the activity. If activity was not attempted, code reason: 7-Patient Refused. 9-Not Applicable-not attempted and the patient did not perform the activity before the current illness, exacerbation or injury. 10-Not Attempted due to Environmental Limitations-(lack of equipment, weather restraints, etc.). 88-Not Attempted due to Medical Conditions or Safety Concerns. Pt required min A for sit to stand but required mod A as he fatigued. Weight Bearing Weight Bearing/Tolerated Weight Bearing/Tolerated Gait Training Gait Assistive Device: FWW Donned back brace with min A. Pt amb with FWW and CGA, close f/u of w/c 3 x 200ft. Exercises Supine Ex: Ankle pumps, Quad Set, Heel Slides, Short Arc Quads, Straight leg raise, Hip abd/add Supine Reps: 20 Treatments Passive stretching (B) LE all planes, neural glides x 20 each LE. Pt performed hooklying september with occasional assist as needed (L) LE. Assessment Current Status: Good Progress Pt progressing appropriately. Pt did fatigue with therapy but is self motivated and wanted to keep working/walking. Pt pain level decreasing and (L) LE function improving per pt. Pt does fairly well with (B) UE prostheses on FWW but may benefit from trial of platform walker. Pt balance fairly steady throughout treatment, able to self right as needed. Pt resting in chair with call light and all needs met. PT Short Term Goals Short Term Goals Time Frame: Dec 22, 2020 Roll Left & Right: 6 Sit to lyin Lying to sitting on side of be: 6 Sit to stand: 3 Chair/sgd-aw-ksulw transfer: 3 Walk 10 feet: 3 Walk 50 feet with two turns: 3 Walk 150 feet: 3 1 step (curb): 3 PT Half-Way Goals Half-Way Goals PT Half-Way Goals Time Frame: Jan 05, 2021 Roll Left & Right (QC): 6 Sit to Lying (QC): 6 Lying-Sitting on Side/Bed(QC): 6 Sit to Stand (QC): 6 Chair/Zvh-ry-Gbtsh Xfer(QC): 6 Toilet Transfer (QC): 6 Car Transfer (QC): 6 Does the Patient Walk: Yes Walk 10 feet (QC): 6 Walk 50ft with 2 Turns (QC): 6 Walk 150 ft (QC): 6 Walking 10ft on Uneven Surface: 6 1 Step (curb) (QC): 4 4 Steps (QC): 4 12 Steps (QC): 4 Picking up an Object (QC): 4 Wheel 50 feet with 2 turns (QC: 9 Wheel 150 feet: 9 PT Plan Treatment/Plan Treatment Plan: Continue Plan of Care Treatment Plan: Bed Mobility, Education, Functional Activity Marc, Functional Strength, Group Therapy, Gait, Safety, Therapeutic Exercise, Transfers, Other Treatment Duration: Jan 05, 2021 Frequency: At least 5 of 7 days/Wk (IRF) Estimated Hrs Per Day: 1.5 hours per day Patient and/or Family Agrees t: Yes Time/GCodes Time In: 1100 Time Out: 1200 Total Billed Treatment Time: 60 Total Billed Treatment 1, ther ex x 30', gait x 30' NICOL HEARN CPTA Dec 12, 2020 12:57
--- NOTE | 2020-12-12 14:40 | Occupational Ther Daily Note ---
OT Current Status-Daily Note Subjective No pain reported. Appearance Pt. in bed. Alert and oriented. Agrees to work with OT. Mental Status/Objective Patient Orientation: Person, Place, Time, Situation ADL-Treatment Therapy Code Descriptions/Definitions Functional [place] Measure: 0=Not Assessed/NA 4=Minimal Assistance 1=Total Assistance 5=Supervision or Setup 2=Maximal Assistance 6=Modified [place] 3=Moderate Assistance 7=Complete IndependenceSCALE: Activities may be completed with or without assistive devices. 2-Kmlyhdosch-vmchecm completes the activity by him/herself with no assistance from a helper. 5-Set-up or Clean-up Assistance-helper sets up or cleans up; patient completes activity. [place] assists only prior to or following the activity. 4-Supervision or Touching Assistance-helper provides verbal cues and/or touching/steadying and/or contact guard assistance as patient completes activity. Assistance may be provided throughout the activity or intermittently. 3-Partial/Moderate Assistance-helper does LESS THAN HALF the effort. [place] lifts, holds or supports trunk or limbs, but provides less than half the effort. 2-Substantial/Maximal Assistance-helper does MORE THAN HALF the effort. [place] lifts or holds trunk or limbs and provides more than half the effort. 0-Utcmhavuw-lqwjnr does ALL the effort. Patient does none of the effort to complete the activity. Or, the assistance of 2 or more helpers is required for the patient to complete the activity. If activity was not attempted, code reason: 7-Patient Refused. 9-Not Applicable-not attempted and the patient did not perform the activity before the current illness, exacerbation or injury. 10-Not Attempted due to Environmental Limitations-(lack of equipment, weather restraints, etc.). 88-Not Attempted due to Medical Conditions or Safety Concerns. Oral Hygiene (QC): 5 (Set up seated on EOB.) Lower Body Dressing (QC): 4 (SBA to don shorts. Pt. utilizes different methods, both EOB and then supine for best practice to use at home. ) On/Off Footwear: 4 (SBA with increased time using sock aide and dressing stick to doff/don slipper socks.) Other Treatment Pt/OT problem solved best and most realistic methods that pt. will likely have to use at home to dress self with awareness of back precautions and bilateral UE prosthesis. Pt. able to don shorts and slipper socks. OT and pt. talked about pt's slip on shoes at home due to being unable to bend over to tie or use velcro, and being unable to bring feet up to him. Pt. seemed encouraged that he was able to do this with increased time, and states that normally, due to his situation anyway with having prosthetic UE, he needs to practice tasks multiple times before becoming fully independent. Will continue practicing these methods with pt. All needs met at end of session. Education OT Patient Education: Correct positioning, Modified ADL techniques, Progress toward Goal/Update tx plan, Purpose of tx/functional activities, Reviewed precautions, Rehab process, Transfer techniques, Use of adapted equipment Teaching Recipient: Patient Teaching Methods: Demonstration, Discussion Response to Teaching: Verbalize Understanding, Return Demonstration OT Short Term Goals Short Term Goals Time Frame: Dec 22, 2020 Eatin Oral hygiene: 6 Toileting hygiene: 3 Shower/bathe self: 3 Upper body dressin Lower body dressin Putting on/taking off footwear: 3 OT Usp Goals Lab Support Technician Goals Time Frame: Jan 05, 2021 Eating (QC): 6 Oral Hygiene (QC): 6 Toileting Hygiene (QC): 6 Shower/Bathe Self (QC): 5 Upper Body Dressing (QC): 6 Lower Body Dressing (QC): 6 On/Off Footwear (QC): 6 Additional Goals: 1-Demonstrate ADL Tasks, 2-Verbalize Understanding, 3- ImproveStrength/Marc 1=Demonstrate adherence to instructed precautions during ADL tasks. 2=Patient will verbalize/demonstrate understanding of assistive devices/modifications for ADL. 3=Patient will improve strength/tolerance for activity to enable patient to perform ADL's. OT Education/Plan Discharge Recommendations Plan/Recommendations: Continue POC Treatment Plan/Plan of Care Treatment,Training & Education: Yes Patient would benefit from OT for education, treatment and training to promote independence in ADL's, mobility, safety and/or upper extremity function for ADL's. Plan of Care: ADL Retraining, Functional Mobility, UE Funct Exercise/Act Treatment Duration: Jan 05, 2021 Frequency: At least 5 of 7 days/Wk (IRF) Estimated Hrs Per Day: 1.5 hours per day Agreement: Yes Rehab Potential: Fair Time/GCodes Start Time: 09:45 Stop Time: 10:45 Total Time Billed (hr/min): 60 Billed Treatment Time 1, ADL x 4 NESTOR ORTEZ OT Dec 12, 2020 14:40
--- NOTE | 2020-12-12 14:56 | Therapy Group Daily Note ---
Therapy Daily Group Note Patient Education Topic Home Safety Exercises LE Seated Exercise, UE Exercise Session Ratio (pt:therapist): 3:1 Goal of Session: Energy Conservation Tech., UE/LE Strengthing Goal Met for this Session: Yes Pt Benefit of Group: Contributions to Others, F/U Use of Strategies @Home, Increased Functional Safety, Increased Functional Strength, Improved Cognition, Recognition of Peers, Socialization Other/Notes Pt was propelled w/c to [facility] to participate in OT/PT group. Group consisted of introductions (name, place living, favorite summer activity), soci alization, seated B UE/LE exercise and energy conservation education. Pt introduced self appropriately and actively listened to peers. Pt able to complete B UE & LE exercises without difficulty. Pt acknowledged understanding of educational topic by giving own strategies and examples. After session, pt lying in bed with call light/phone in reach. All needs met in room. Start Time: 13:00 Stop Time: 14:00 Total Billed Treatment Time: 60 Total Billed Treatment 1, ROBI MOORE PLASTIC PANEL INSTALLER Dec 12, 2020 14:55
[2020-12-12] MEDS: TAMSULOSIN 0.4 MG (FLOMAX) CAP PO SCH (17:57)
[2020-12-12 20:18] VITALS: BP 147/81
[2020-12-13 08:00] VITALS: BP 175/85
[2020-12-13] MEDS: SENNA W/DOCUSATE (SENOKOT S) TABLET PO SCH (08:39)
[2020-12-13] MEDS: polyethylene glycoL POWDER 17 GM (MIRALAX) PACK PO SCH ×2 (08:40→22:09)
[2020-12-13] MEDS: DOCUSATE SODIUM 100 MG (COLACE) CAP PO SCH ×2 (08:40→22:09)
[2020-12-13 08:48] VITALS: BP 110/65
--- NOTE | 2020-12-13 10:20 | Progress Note - Urology ---
Progress Note-Urology Progress Notes/Assess & Plan Progress/Assessment & Plan STILL UNABLE TO VOID. START URECHOLINE Final Diagnosis RETENTION LISA FUENTES MD Dec 13, 2020 10:20
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
[2020-12-13] MEDS: BETHANECHOL 25 MG (URECHOLINE) TAB PO SCH ×3 (11:44→22:09)
--- NOTE | 2020-12-13 11:53 | Physical Therapy Daily Note ---
PT Daily Note-Current Subjective Patient in bed pre tx, agrees to PT, voices no complaints of pain. Appearance Patient sitting EOB post tx, nurse in room, has to take his drain out. Mental Status Patient Orientation: Normal For Age Transfers SCALE: Activities may be completed with or without assistive devices. 4-Sznzagzlwf-hdnwebx completes the activity by him/herself with no assistance from a helper. 5-Set-up or Clean-up Assistance-helper sets up or cleans up; patient completes activity. [place] assists only prior to or following the activity. 4-Supervision or Touching Assistance-helper provides verbal cues and/or touching/steadying and/or contact guard assistance as patient completes activity. Assistance may be provided throughout the activity or intermittently. 3-Partial/Moderate Assistance-helper does LESS THAN HALF the effort. [place] lifts, holds or supports trunk or limbs, but provides less than half the effort. 2-Substantial/Maximal Assistance-helper does MORE THAN HALF the effort. [place] lifts or holds trunk or limbs and provides more than half the effort. 6-Kkichenkd-rlrsmu does ALL the effort. Patient does none of the effort to complete the activity. Or, the assistance of 2 or more helpers is required for the patient to complete the activity. If activity was not attempted, code reason: 7-Patient Refused. 9-Not Applicable-not attempted and the patient did not perform the activity before the current illness, exacerbation or injury. 10-Not Attempted due to Environmental Limitations-(lack of equipment, weather restraints, etc.). 88-Not Attempted due to Medical Conditions or Safety Concerns. Roll Left & Right (QC): 6 Lying to Sitting/Side of Bed(Q: 5 Sit to Stand (QC): 4 Chair/Mrb-ch-Zwbzi Xfer(QC): 4 Weight Bearing Weight Bearing/Tolerated Weight Bearing/Tolerated Gait Training Distance: 150'x2 Walk 10 feet (QC): 4 Walk 50 ft with 2 Turns(QC): 4 Walk 150 ft (QC): 4 Gait Persons Needed: 1 Gait Assistive Device: FWW unsteady but no LOB, slight right knee hyperextension Exercises LAQ alternating for 5 min with 2# ankle weights, sit to stands from progressively lower surface 5 sets of 10 NuStep Minutes: 15 NuStep Workload: 4 Treatments bed mobility and transfers, ambulation, functional strengthening Assessment Current Status: Fair Progress improving strength and ambulation PT Short Term Goals Short Term Goals Time Frame: Dec 22, 2020 Roll Left & Right: 6 Sit to lyin Lying to sitting on side of be: 6 Sit to stand: 3 Chair/fri-vl-wvsvh transfer: 3 Walk 10 feet: 3 Walk 50 feet with two turns: 3 Walk 150 feet: 3 1 step (curb): 3 PT Bicycle I Assembler Goals Residential Goals PT Bicycle I Assembler Goals Time Frame: Jan 05, 2021 Roll Left & Right (QC): 6 Sit to Lying (QC): 6 Lying-Sitting on Side/Bed(QC): 6 Sit to Stand (QC): 6 Chair/Iop-jg-Iwcpb Xfer(QC): 6 Toilet Transfer (QC): 6 Car Transfer (QC): 6 Does the Patient Walk: Yes Walk 10 feet (QC): 6 Walk 50ft with 2 Turns (QC): 6 Walk 150 ft (QC): 6 Walking 10ft on Uneven Surface: 6 1 Step (curb) (QC): 4 4 Steps (QC): 4 12 Steps (QC): 4 Picking up an Object (QC): 4 Wheel 50 feet with 2 turns (QC: 9 Wheel 150 feet: 9 PT Plan Problem List Problem List: Activity Tolerance, Functional Strength, Safety, Balance, Gait, Transfer, Bed Mobility, ROM Treatment/Plan Treatment Plan: Continue Plan of Care Treatment Plan: Bed Mobility, Education, Functional Activity Marc, Functional Strength, Group Therapy, Gait, Safety, Therapeutic Exercise, Transfers, Other Treatment Duration: Jan 05, 2021 Frequency: At least 5 of 7 days/Wk (IRF) Estimated Hrs Per Day: 1.5 hours per day Patient and/or Family Agrees t: Yes Safety Risks/Education Patient Education: Gait Training, Transfer Techniques, Correct Positioning, Safety Issues Teaching Recipient: Patient Teaching Methods: Demonstration, Discussion Response to Teaching: Reinforcement Needed Time/GCodes Time In: 1100 Time Out: 1200 Total Billed Treatment Time: 60 Total Billed Treatment 1 visit EX 40' FA 20' RORY FRANCOIS PT Dec 13, 2020 11:52
--- NOTE | 2020-12-13 12:10 | Occupational Ther Daily Note ---
OT Current Status-Daily Note Subjective No pain reported. Appearance Pt. in bed. Agrees to work with OT. Mental Status/Objective Patient Orientation: Person, Place, Time, Situation ADL-Treatment Therapy Code Descriptions/Definitions Functional [place] Measure: 0=Not Assessed/NA 4=Minimal Assistance 1=Total Assistance 5=Supervision or Setup 2=Maximal Assistance 6=Modified [place] 3=Moderate Assistance 7=Complete IndependenceSCALE: Activities may be completed with or without assistive devices. 2-Xmtoryamjt-ragbikj completes the activity by him/herself with no assistance from a helper. 5-Set-up or Clean-up Assistance-helper sets up or cleans up; patient completes activity. [place] assists only prior to or following the activity. 4-Supervision or Touching Assistance-helper provides verbal cues and/or touching/steadying and/or contact guard assistance as patient completes activity. Assistance may be provided throughout the activity or intermittently. 3-Partial/Moderate Assistance-helper does LESS THAN HALF the effort. [place] lifts, holds or supports trunk or limbs, but provides less than half the effort. 2-Substantial/Maximal Assistance-helper does MORE THAN HALF the effort. [place] lifts or holds trunk or limbs and provides more than half the effort. 5-Twjsrsrtb-pbxmlf does ALL the effort. Patient does none of the effort to complete the activity. Or, the assistance of 2 or more helpers is required for the patient to complete the activity. If activity was not attempted, code reason: 7-Patient Refused. 9-Not Applicable-not attempted and the patient did not perform the activity before the current illness, exacerbation or injury. 10-Not Attempted due to Environmental Limitations-(lack of equipment, weather restraints, etc.). 88-Not Attempted due to Medical Conditions or Safety Concerns. Shower/Bathe Self (QC): 2 Upper Body Dressing (QC): 3 (Min assist to don prosthetic UE. Pt. able to doff them, and doff/don shirt.) Lower Body Dressing (QC): 3 (Max assist to doff shorts while seated on shower chair. Min assist to don shorts while seated on EOB.) On/Off Footwear: 3 (With sock aide) Other Treatment Pt. completed shower. After showering, pt. donned UE prosthesis and shirt while seated on shower chair. Pt. able to stand from bed, and shower chair, and transfer to/from with min assist. Once he was seated on bed after shower he was able to don shorts with different methods for sitting/lying on bed. Able to transfer sit-supine with SBA. Donned slipper socks with increased time with sock aide. All needs met in bed at end of session. Education OT Patient Education: Correct positioning, Modified ADL techniques, Progress toward Goal/Update tx plan, Purpose of tx/functional activities, Reviewed precautions, Rehab process, Transfer techniques Teaching Recipient: Patient Teaching Methods: Demonstration, Discussion Response to Teaching: Verbalize Understanding, Return Demonstration OT Short Term Goals Short Term Goals Time Frame: Dec 22, 2020 Eatin Oral hygiene: 6 Toileting hygiene: 3 Shower/bathe self: 3 Upper body dressin Lower body dressin Putting on/taking off footwear: 3 OT Java Development Manager Goals Java Development Manager Goals Time Frame: Jan 05, 2021 Eating (QC): 6 Oral Hygiene (QC): 6 Toileting Hygiene (QC): 6 Shower/Bathe Self (QC): 5 Upper Body Dressing (QC): 6 Lower Body Dressing (QC): 6 On/Off Footwear (QC): 6 Additional Goals: 1-Demonstrate ADL Tasks, 2-Verbalize Understanding, 3- ImproveStrength/Marc 1=Demonstrate adherence to instructed precautions during ADL tasks. 2=Patient will verbalize/demonstrate understanding of assistive devices/modifications for ADL. 3=Patient will improve strength/tolerance for activity to enable patient to perform ADL's. OT Education/Plan Problem List/Assessment Assessment: Decreased Activ Tolerance, Impaired I ADL's, Impaired Self-Care Skills Discharge Recommendations Plan/Recommendations: Continue POC Treatment Plan/Plan of Care Treatment,Training & Education: Yes Patient would benefit from OT for education, treatment and training to promote independence in ADL's, mobility, safety and/or upper extremity function for ADL's. Plan of Care: ADL Retraining, Functional Mobility, UE Funct Exercise/Act Treatment Duration: Jan 05, 2021 Frequency: At least 5 of 7 days/Wk (IRF) Estimated Hrs Per Day: 1.5 hours per day Agreement: Yes Rehab Potential: Fair Time/GCodes Start Time: 09:30 Stop Time: 11:00 Total Time Billed (hr/min): 90 Billed Treatment Time , ADL x 6 NESTOR ORTEZ OT Dec 13, 2020 12:10
--- NOTE | 2020-12-13 13:28 | Physical Therapy Daily Note ---
PT Daily Note-Current Subjective Patient in bed pre tx, agrees to PT, has no complaints of pain. Appearance Patient in bed post tx with nurse call, phone, tray, all needs met. Mental Status Patient Orientation: Normal For Age Transfers SCALE: Activities may be completed with or without assistive devices. 1-Bpwsdquitm-hjfeoir completes the activity by him/herself with no assistance from a helper. 5-Set-up or Clean-up Assistance-helper sets up or cleans up; patient completes activity. [place] assists only prior to or following the activity. 4-Supervision or Touching Assistance-helper provides verbal cues and/or touching/steadying and/or contact guard assistance as patient completes activity. Assistance may be provided throughout the activity or intermittently. 3-Partial/Moderate Assistance-helper does LESS THAN HALF the effort. [place] lifts, holds or supports trunk or limbs, but provides less than half the effort. 2-Substantial/Maximal Assistance-helper does MORE THAN HALF the effort. [place] lifts or holds trunk or limbs and provides more than half the effort. 9-Ndgndfbkg-rsgoqq does ALL the effort. Patient does none of the effort to complete the activity. Or, the assistance of 2 or more helpers is required for the patient to complete the activity. If activity was not attempted, code reason: 7-Patient Refused. 9-Not Applicable-not attempted and the patient did not perform the activity before the current illness, exacerbation or injury. 10-Not Attempted due to Environmental Limitations-(lack of equipment, weather restraints, etc.). 88-Not Attempted due to Medical Conditions or Safety Concerns. Roll Left & Right (QC): 6 Sit to Lying (QC): 3 Lying to Sitting/Side of Bed(Q: 4 Sit to Stand (QC): 3 Chair/Whc-xj-Bzykm Xfer(QC): 4 Weight Bearing Weight Bearing/Tolerated Weight Bearing/Tolerated Gait Training Distance: 150'x2 Walk 10 feet (QC): 4 Walk 50 ft with 2 Turns(QC): 4 Walk 150 ft (QC): 4 Gait Persons Needed: 1 Gait Assistive Device: FWW Exercises Standing: Hip Abduction, Hamstring curls, Heel/toe raises, Marching Standing Reps: 15 Treatments bed mobility and transfers, ambulation, functional strengthening Assessment Current Status: Fair Progress slowly improving LE strength PT Short Term Goals Short Term Goals Time Frame: Dec 22, 2020 Roll Left & Right: 6 Sit to lyin Lying to sitting on side of be: 6 Sit to stand: 3 Chair/ujq-zf-jcspv transfer: 3 Walk 10 feet: 3 Walk 50 feet with two turns: 3 Walk 150 feet: 3 1 step (curb): 3 PT Weeder Goals Intermediate Goals PT Weeder Goals Time Frame: Jan 05, 2021 Roll Left & Right (QC): 6 Sit to Lying (QC): 6 Lying-Sitting on Side/Bed(QC): 6 Sit to Stand (QC): 6 Chair/Fuo-jh-Clxad Xfer(QC): 6 Toilet Transfer (QC): 6 Car Transfer (QC): 6 Does the Patient Walk: Yes Walk 10 feet (QC): 6 Walk 50ft with 2 Turns (QC): 6 Walk 150 ft (QC): 6 Walking 10ft on Uneven Surface: 6 1 Step (curb) (QC): 4 4 Steps (QC): 4 12 Steps (QC): 4 Picking up an Object (QC): 4 Wheel 50 feet with 2 turns (QC: 9 Wheel 150 feet: 9 PT Plan Problem List Problem List: Activity Tolerance, Functional Strength, Safety, Balance, Gait, Transfer, Bed Mobility, ROM Treatment/Plan Treatment Plan: Continue Plan of Care Treatment Plan: Bed Mobility, Education, Functional Activity Marc, Functional Strength, Group Therapy, Gait, Safety, Therapeutic Exercise, Transfers, Other Treatment Duration: Jan 05, 2021 Frequency: At least 5 of 7 days/Wk (IRF) Estimated Hrs Per Day: 1.5 hours per day Patient and/or Family Agrees t: Yes Safety Risks/Education Patient Education: Gait Training, Transfer Techniques, Correct Positioning, Safety Issues Teaching Recipient: Patient Teaching Methods: Demonstration, Discussion Response to Teaching: Reinforcement Needed Time/GCodes Time In: 1300 Time Out: 1330 Total Billed Treatment Time: 30 Total Billed Treatment 1 visit EX 15' GT 15' RORY FRANCOIS PT Dec 13, 2020 13:28
[2020-12-13] MEDS: TAMSULOSIN 0.4 MG (FLOMAX) CAP PO SCH (18:04)
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
[2020-12-13 20:00] VITALS: BP 119/67
[2020-12-14] MEDS: BETHANECHOL 25 MG (URECHOLINE) TAB PO SCH ×4 (05:59→20:33)
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
[2020-12-14 08:00] VITALS: BP 179/94
[2020-12-14] MEDS: polyethylene glycoL POWDER 17 GM (MIRALAX) PACK PO SCH ×2 (08:45→20:32)
[2020-12-14] MEDS: DOCUSATE SODIUM 100 MG (COLACE) CAP PO SCH ×2 (08:46→20:32)
--- NOTE | 2020-12-14 09:27 | Progress Note - Surgery ---
Subjective Time Seen by a Provider: 08:52 Subjective/Events-last exam Pt seen and examined, sitting up at side of bed. Pt denies any abdominal pain, still no BM. Tolerating diet. Review of Systems General: No Chills, No Night Sweats Pulmonary: No Dyspnea, No Cough Cardiovascular: No: Chest Pain, Palpitations Gastrointestinal: No: Nausea, Vomiting, Abdominal Pain Objective Exam Vital Signs Date Time Temp Pulse Resp B/P (MAP) Pulse Ox O2 Delivery O2 Flow Rate FiO2 12/14/20 08:09 Room Air 12/14/20 08:00 37.4 86 18 179/94 (122) 97 Room Air 12/13/20 20:00 Room Air 12/13/20 20:00 37.0 79 18 119/67 (84) 98 I & O 12/14/20 07:00 Intake Total 1090 ml Output Total 1175 ml Balance -85 ml Capillary Refill : General Appearance: No Apparent Distress, Thin HEENT: PERRL/EOMI, Pharynx Normal Respiratory: Lungs Clear, Normal Breath Sounds, No Accessory Muscle Use, No Respiratory Distress Cardiovascular: Regular Rate, Rhythm, No Murmur Gastrointestinal: normal bowel sounds, non tender, soft, no organomegaly, h ernia (small incarcerated UH) Extremity: No Calf Tenderness, No Pedal Edema, Other (Chronic amputation upper extremities above elbow) Neurologic/Psychiatric: Alert, Oriented x3, Abnormal Gait, Depressed Affect Assessment/Plan Assessment/Plan Assessment/Plan Constipation Partial Paralysis - resolving Pt told to continue on current regimen of laxatives and stool softeners, plus occasional enemas. Pt encourage to continue his walking more and can increase his PO intake (michael. of fluids). I still believe this is all he will need to return to normal BM's. He still is not complaining of any abdominal pain, his abdomen is completely soft. I also recommend chewing gum which will help with return of bowel function. CYRIL DAVENPORT DO Dec 14, 2020 09:27
--- NOTE | 2020-12-14 09:51 | Progress Note - Urology ---
Progress Note-Urology Progress Notes/Assess & Plan Progress/Assessment & Plan KRISHNAN BACK IN. INCREASE FLOMAX AND URECHOLINE Final Diagnosis RETENTION LISA FUENTES MD Dec 14, 2020 09:51
--- NOTE | 2020-12-14 10:00 | Occupational Ther Daily Note ---
OT Current Status-Daily Note Subjective Pt alert, lying in bed. Nrsg in room to bring pain meds. Pt agrees to therapy. Mental Status/Objective Patient Orientation: Person, Place, Time, Situation Attachments: Ramirez Catheter ADL-Treatment Co-treat with PT ([id number]), skills of 2 clinicians required due to increasing balance challenges, increasing activity tolerance and modifying AD to increase safety. PT focusing on ambulation, transfers and mobility while OT focusing on functional mobility, modifying AE and ADLs. Pt declines shower, agrees to sponge bath. After set up, pt completes sponge bath sitting EOB, reaching all areas except lower legs and feet which he declines to bathe. After set up, pt able to don/doff shirt by self. With prosthesis already beside pt, pt able to don/doff by self. Assist with back brace. Pt uses modified dressing stick to complete lower body dressing, leans side to side to hike pants. Due to time constraints assist given to don socks. Therapy Code Descriptions/Definitions Functional [place] Measure: 0=Not Assessed/NA 4=Minimal Assistance 1=Total Assistance 5=Supervision or Setup 2=Maximal Assistance 6=Modified [place] 3=Moderate Assistance 7=Complete IndependenceSCALE: Activities may be completed with or without assistive devices. 3-Woorkprqyd-hstakyq completes the activity by him/herself with no assistance from a helper. 5-Set-up or Clean-up Assistance-helper sets up or cleans up; patient completes activity. [place] assists only prior to or following the activity. 4-Supervision or Touching Assistance-helper provides verbal cues and/or touching/steadying and/or contact guard assistance as patient completes activity. Assistance may be provided throughout the activity or intermittently. 3-Partial/Moderate Assistance-helper does LESS THAN HALF the effort. [place] lifts, holds or supports trunk or limbs, but provides less than half the effort. 2-Substantial/Maximal Assistance-helper does MORE THAN HALF the effort. [place] lifts or holds trunk or limbs and provides more than half the effort. 2-Mhhbsjsrq-anemrh does ALL the effort. Patient does none of the effort to complete the activity. Or, the assistance of 2 or more helpers is required for the patient to complete the activity. If activity was not attempted, code reason: 7-Patient Refused. 9-Not Applicable-not attempted and the patient did not perform the activity before the current illness, exacerbation or injury. 10-Not Attempted due to Environmental Limitations-(lack of equipment, weather restraints, etc.). 88-Not Attempted due to Medical Conditions or Safety Concerns. Upper Body Dressing (QC): 5 Lower Body Dressing (QC): 5 Other Treatment Built up handles on FWW for better correspondence transcriber for prosthesis. See PT notes for ambulation progress. After therapy, pt sitting in w/c with call light/phone in reach. All needs met in room. OT Short Term Goals Short Term Goals Time Frame: Dec 22, 2020 Eatin Oral hygiene: 6 Toileting hygiene: 3 Shower/bathe self: 3 Upper body dressin Lower body dressin Putting on/taking off footwear: 3 OT Penitentiary Goals Penitentiary Goals Time Frame: Jan 05, 2021 Eating (QC): 6 Oral Hygiene (QC): 6 Toileting Hygiene (QC): 6 Shower/Bathe Self (QC): 5 Upper Body Dressing (QC): 6 Lower Body Dressing (QC): 6 On/Off Footwear (QC): 6 Additional Goals: 1-Demonstrate ADL Tasks, 2-Verbalize Understanding, 3-Impr oveStrength/Marc 1=Demonstrate adherence to instructed precautions during ADL tasks. 2=Patient will verbalize/demonstrate understanding of assistive devices/modifications for ADL. 3=Patient will improve strength/tolerance for activity to enable patient to perform ADL's. OT Education/Plan Problem List/Assessment Assessment: Decreased Activ Tolerance, Decreased UE Strength, Impaired Funct Balance, Impaired Self-Care Skills Discharge Recommendations Plan/Recommendations: Continue POC Treatment Plan/Plan of Care Patient would benefit from OT for education, treatment and training to promote independence in ADL's, mobility, safety and/or upper extremity function for ADL's. Plan of Care: ADL Retraining, Functional Mobility, UE Funct Exercise/Act Treatment Duration: Jan 05, 2021 Frequency: At least 5 of 7 days/Wk (IRF) Estimated Hrs Per Day: 1.5 hours per day Agreement: Yes Rehab Potential: Fair Time/GCodes Start Time: 09:00 Stop Time: 10:00 Total Time Billed (hr/min): 60 Billed Treatment Time 1 visit-ADL 3 (50 min) FA 1 (20 min) co-treat with PT [id number] LONA ANDREWS Dec 14, 2020 10:00
--- NOTE | 2020-12-14 10:00 | Physical Therapy Daily Note ---
PT Daily Note-Current Subjective Patient in bed pre tx, already working with OT, has unrated pain in legs. Will be co-treating with OT due to poor patient mobility, strength, endurance, coordinate UE and LE during activity, work on adapting his walker for better use with his UE prostheses Appearance Patient in WC at bedside post tx with nurse call, phone, tray, all needs met. Mental Status Patient Orientation: Person, Place, Situation back brace Transfers SCALE: Activities may be completed with or without assistive devices. 9-Medzlrlceg-jwxzcfy completes the activity by him/herself with no assistance from a helper. 5-Set-up or Clean-up Assistance-helper sets up or cleans up; patient completes activity. [place] assists only prior to or following the activity. 4-Supervision or Touching Assistance-helper provides verbal cues and/or touching/steadying and/or contact guard assistance as patient completes activity. Assistance may be provided throughout the activity or intermittently. 3-Partial/Moderate Assistance-helper does LESS THAN HALF the effort. [place] lifts, holds or supports trunk or limbs, but provides less than half the effort. 2-Substantial/Maximal Assistance-helper does MORE THAN HALF the effort. [place] lifts or holds trunk or limbs and provides more than half the effort. 5-Vhrekntab-lbtful does ALL the effort. Patient does none of the effort to complete the activity. Or, the assistance of 2 or more helpers is required for the patient to complete the activity. If activity was not attempted, code reason: 7-Patient Refused. 9-Not Applicable-not attempted and the patient did not perform the activity before the current illness, exacerbation or injury. 10-Not Attempted due to Environmental Limitations-(lack of equipment, weather restraints, etc.). 88-Not Attempted due to Medical Conditions or Safety Concerns. Lying to Sitting/Side of Bed(Q: 3 Sit to Stand (QC): 3 Chair/Dze-cd-Miylr Xfer(QC): 4 Patient needs min to mod assist to stand from lower surfaces, CGA to stand from elevated surfaces, needs some assist with positioning and balance during dressing. Weight Bearing Weight Bearing/Tolerated Weight Bearing/Tolerated Gait Training Distance: 200', 150', 100' Walk 10 feet (QC): 4 Walk 50 ft with 2 Turns(QC): 4 Walk 150 ft (QC): 4 Gait Persons Needed: 1 Gait Assistive Device: FWW unsteady ambulation but no LOB, has right knee hyperextension Exercises LAQ alternating for 5 min, BLE hamstring and gastroc stretching Treatments PT performed bed mobility and transfer training, gait training, LE stretching and strengthening, balance and positioning during dressing, OT worked on walker modification, UE positioning and safety during activity, dressing Assessment Current Status: Fair Progress strength improving but still needs assist to stand from lower surfaces PT Short Term Goals Short Term Goals Time Frame: Dec 22, 2020 Roll Left & Right: 6 Sit to lyin Lying to sitting on side of be: 6 Sit to stand: 3 Chair/aya-hm-vydjx transfer: 3 Walk 10 feet: 3 Walk 50 feet with two turns: 3 Walk 150 feet: 3 1 step (curb): 3 PT Longterm Goals Longterm Goals PT Service Girl Goals Time Frame: Jan 05, 2021 Roll Left & Right (QC): 6 Sit to Lying (QC): 6 Lying-Sitting on Side/Bed(QC): 6 Sit to Stand (QC): 6 Chair/Sgt-xs-Guhjl Xfer(QC): 6 Toilet Transfer (QC): 6 Car Transfer (QC): 6 Does the Patient Walk: Yes Walk 10 feet (QC): 6 Walk 50ft with 2 Turns (QC): 6 Walk 150 ft (QC): 6 Walking 10ft on Uneven Surface: 6 1 Step (curb) (QC): 4 4 Steps (QC): 4 12 Steps (QC): 4 Picking up an Object (QC): 4 Wheel 50 feet with 2 turns (QC: 9 Wheel 150 feet: 9 PT Plan Problem List Problem List: Activity Tolerance, Functional Strength, Safety, Balance, Gait, Transfer, Bed Mobility, ROM Treatment/Plan Treatment Plan: Continue Plan of Care Treatment Plan: Bed Mobility, Education, Functional Activity Marc, Functional Strength, Group Therapy, Gait, Safety, Therapeutic Exercise, Transfers, Other Treatment Duration: Jan 05, 2021 Frequency: At least 5 of 7 days/Wk (IRF) Estimated Hrs Per Day: 1.5 hours per day Patient and/or Family Agrees t: Yes Safety Risks/Education Patient Education: Gait Training, Transfer Techniques, Correct Positioning, Safety Issues Teaching Recipient: Patient Teaching Methods: Demonstration, Discussion Response to Teaching: Reinforcement Needed Time/GCodes Time In: 0900 Time Out: 1000 Total Billed Treatment Time: 60 Total Billed Treatment 1 visit EX 10' FA 50' RORY FRANCOIS PT Dec 14, 2020 10:00
[2020-12-14] MEDS: TAMSULOSIN 0.4 MG (FLOMAX) CAP PO SCH ×2 (14:02→20:32)
--- NOTE | 2020-12-14 14:14 | Therapy Group Daily Note ---
Therapy Daily Group Note Patient Education Topic Home Safety, Fall Prevention Exercises Walking, Fine Motor Session Ratio (pt:therapist): 3:1 Goal of Session: Home Safety Strategies, Memory Strategies, Safety with Transfers Goal Met for this Session: Yes Pt Benefit of Group: Contributions to Others, F/U Use of Strategies @Home, Increased Functional Safety, Improved Cognition, Recognition of Peers, Socialization Other/Notes Patient ambulated with therapist to the common area of rehab for group therapy. Each person introduced themselves, stated where they were from and what their favorite hobby was. Then patients performed home safety bingo, were educated on each topic, and also had to perform some word scramble problems. Patient socialized well with others. Patient ambulated back to his room after group therapy and into bed with nurse call, phone, tray, all needs met. Start Time: 13:00 Stop Time: 14:00 Total Billed Treatment Time: 60 Total Billed Treatment 1 visit GRP 60RORY POWERS PT Dec 14, 2020 14:14
[2020-12-14 20:00] VITALS: BP 118/60
[2020-12-15] MEDS: BETHANECHOL 25 MG (URECHOLINE) TAB PO SCH ×4 (06:04→21:09)
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
[2020-12-15 07:30] VITALS: BP 137/82
[2020-12-15] MEDS: TAMSULOSIN 0.4 MG (FLOMAX) CAP PO SCH ×2 (08:28→21:09)
[2020-12-15] MEDS: DOCUSATE SODIUM 100 MG (COLACE) CAP PO SCH ×2 (08:28→21:09)
[2020-12-15] MEDS: polyethylene glycoL POWDER 17 GM (MIRALAX) PACK PO SCH ×2 (08:29→21:05)
--- NOTE | 2020-12-15 08:57 | Physical Therapy Daily Note ---
PT Daily Note-Current Subjective Pt laying supine in bed upon arrival. Pt agrees to PT. Pt asks to use BR to try to have BM. Pain Location: No Pain Reported Mental Status Patient Orientation: Person, Place, Time, Situation Attachments: Other-See Comments (Lumbar back brace) Transfers SCALE: Activities may be completed with or without assistive devices. 8-Ktwhezdnre-fxrffvc completes the activity by him/herself with no assistance from a helper. 5-Set-up or Clean-up Assistance-helper sets up or cleans up; patient completes activity. [place] assists only prior to or following the activity. 4-Supervision or Touching Assistance-helper provides verbal cues and/or touching/steadying and/or contact guard assistance as patient completes activity. Assistance may be provided throughout the activity or intermittently. 3-Partial/Moderate Assistance-helper does LESS THAN HALF the effort. [place] lifts, holds or supports trunk or limbs, but provides less than half the effort. 2-Substantial/Maximal Assistance-helper does MORE THAN HALF the effort. [place] lifts or holds trunk or limbs and provides more than half the effort. 8-Eiurhauzw-zedbwk does ALL the effort. Patient does none of the effort to complete the activity. Or, the assistance of 2 or more helpers is required for the patient to complete the activity. If activity was not attempted, code reason: 7-Patient Refused. 9-Not Applicable-not attempted and the patient did not perform the activity before the current illness, exacerbation or injury. 10-Not Attempted due to Environmental Limitations-(lack of equipment, weather restraints, etc.). 88-Not Attempted due to Medical Conditions or Safety Concerns. Lying to Sitting/Side of Bed(Q: 5 Sit to Stand (QC): 3 Toilet Transfer (QC): 3 Weight Bearing Weight Bearing/Tolerated Weight Bearing/Tolerated Gait Training Does the Patient Walk?: Yes Distance: 125' x2 Walk 10 feet (QC): 4 Walk 50 ft with 2 Turns(QC): 4 Walk 150 ft (QC): 4 Gait Persons Needed: 1 Gait Assistive Device: FWW Treatments TF to standing with assist from WASTE TRANSPORTATION TECHNICIAN. Amb. to BR. After finished, WASTE TRANSPORTATION TECHNICIAN assists with pericare. Pt amb. in hallway before returning to room to rest in bed. All needs met, call light in hand. Assessment Current Status: Good Progress Pt still has moments of confusion on where she is today. Pt is improving with transfers and ambulation. PT Short Term Goals Short Term Goals Time Frame: Dec 22, 2020 Roll Left & Right: 6 Sit to lyin Lying to sitting on side of be: 6 Sit to stand: 3 Chair/loo-fa-uefaj transfer: 3 Walk 10 feet: 3 Walk 50 feet with two turns: 3 Walk 150 feet: 3 1 step (curb): 3 PT Prison Goals Show Operations Supervisor Goals PT Prison Goals Time Frame: Jan 05, 2021 Roll Left & Right (QC): 6 Sit to Lying (QC): 6 Lying-Sitting on Side/Bed(QC): 6 Sit to Stand (QC): 6 Chair/Exu-ur-Ulyyc Xfer(QC): 6 Toilet Transfer (QC): 6 Car Transfer (QC): 6 Does the Patient Walk: Yes Walk 10 feet (QC): 6 Walk 50ft with 2 Turns (QC): 6 Walk 150 ft (QC): 6 Walking 10ft on Uneven Surface: 6 1 Step (curb) (QC): 4 4 Steps (QC): 4 12 Steps (QC): 4 Picking up an Object (QC): 4 Wheel 50 feet with 2 turns (QC: 9 Wheel 150 feet: 9 PT Plan Problem List Problem List: Activity Tolerance Treatment/Plan Treatment Plan: Continue Plan of Care Treatment Plan: Bed Mobility, Education, Functional Activity Marc, Functional Strength, Group Therapy, Gait, Safety, Therapeutic Exercise, Transfers, Other Treatment Duration: Jan 05, 2021 Frequency: At least 5 of 7 days/Wk (IRF) Estimated Hrs Per Day: 1.5 hours per day Patient and/or Family Agrees t: Yes Safety Risks/Education Patient Education: Gait Training Teaching Recipient: Patient Teaching Methods: Discussion Response to Teaching: Verbalize Understanding Time/GCodes Time In: 755 Time Out: 825 Total Billed Treatment Time: 30 Total Billed Treatment 1, FA (15m) & GT (15m) ROBI DANIEL WASTE TRANSPORTATION TECHNICIAN Dec 15, 2020 08:57
[2020-12-15 20:00] VITALS: BP 120/56
[2020-12-16] MEDS: BETHANECHOL 25 MG (URECHOLINE) TAB PO SCH ×4 (06:46→20:58)
[2020-12-16 07:22] VITALS: BP 107/55
[2020-12-16] MEDS: TAMSULOSIN 0.4 MG (FLOMAX) CAP PO SCH ×2 (09:10→20:58)
[2020-12-16] MEDS: DOCUSATE SODIUM 100 MG (COLACE) CAP PO SCH ×2 (09:10→21:00)
[2020-12-16] MEDS: polyethylene glycoL POWDER 17 GM (MIRALAX) PACK PO SCH ×2 (09:11→21:00)
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
[2020-12-16 20:00] VITALS: BP 124/70
[2020-12-17] MEDS: BETHANECHOL 25 MG (URECHOLINE) TAB PO SCH ×4 (06:04→20:25)
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
[2020-12-17 07:37] VITALS: BP 155/87
[2020-12-17] MEDS: DOCUSATE SODIUM 100 MG (COLACE) CAP PO SCH ×2 (07:49→20:25)
[2020-12-17] MEDS: polyethylene glycoL POWDER 17 GM (MIRALAX) PACK PO SCH ×2 (07:49→20:29)
[2020-12-17] MEDS: TAMSULOSIN 0.4 MG (FLOMAX) CAP PO SCH ×2 (07:49→20:25)
--- NOTE | 2020-12-17 12:05 | Occupational Ther Daily Note ---
OT Current Status-Daily Note Subjective No pain reported. Appearance Pt. in bed. Agreeable to work with OT. Mental Status/Objective Patient Orientation: Person, Place, Time, Situation Attachments: Ramirez Catheter ADL-Treatment Therapy Code Descriptions/Definitions Functional [place] Measure: 0=Not Assessed/NA 4=Minimal Assistance 1=Total Assistance 5=Supervision or Setup 2=Maximal Assistance 6=Modified [place] 3=Moderate Assistance 7=Complete IndependenceSCALE: Activities may be completed with or without assistive devices. 5-Hpafcnrldj-kcvisgx completes the activity by him/herself with no assistance from a helper. 5-Set-up or Clean-up Assistance-helper sets up or cleans up; patient completes activity. [place] assists only prior to or following the activity. 4-Supervision or Touching Assistance-helper provides verbal cues and/or touching/steadying and/or contact guard assistance as patient completes ac tivity. Assistance may be provided throughout the activity or intermittently. 3-Partial/Moderate Assistance-helper does LESS THAN HALF the effort. [place] lifts, holds or supports trunk or limbs, but provides less than half the effort. 2-Substantial/Maximal Assistance-helper does MORE THAN HALF the effort. [place] lifts or holds trunk or limbs and provides more than half the effort. 2-Meixocvhq-wwxjek does ALL the effort. Patient does none of the effort to complete the activity. Or, the assistance of 2 or more helpers is required for the patient to complete the activity. If activity was not attempted, code reason: 7-Patient Refused. 9-Not Applicable-not attempted and the patient did not perform the activity before the current illness, exacerbation or injury. 10-Not Attempted due to Environmental Limitations-(lack of equipment, weather restraints, etc.). 88-Not Attempted due to Medical Conditions or Safety Concerns. Eating (QC): 6 Upper Body Dressing (QC): 5 (Set up at this setting. Pt. has specific set up at home that can't be fully simulated at this facility.) Toileting Hygiene (QC): 3 (At this time, pt. has catheter. He also requires assistance for cleansing rear allie area with paper after BM. However, he is able to demonstrate ability to doff/don shorts over hips with SBA, and has specific system at home. 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 problem solve and attempt to simulate/practice each transfer and situation that pt. will have at home, regarding ADL tasks and transfers. Pt. has decided that he will not be using his couch or recliner in living room, but will use a high back arm chair, or chair from dining room to sit in for functional transfer. Pt. was able to simulate this transfer from chair in room at correct height sit-stand with Mod I. OT adjusted walker and pt. states that this is better for him. Pt. is also able to practice transfers to simulate his correct toilet height and set up, his correct bed height with no rail, and other transfers that he will have in the home. Pt. conveys that his home is conducive to his particular situation, and that no matter how much simulation we attempt at this facility, he has a specific system that works for him, and has worked for years. Pt. also states that his daughter will come and stay for awhile, and pt. may also have another friend assist as well. OT will convey this to rn social work. OT spoke with PT. Pt. feels he will be able to ambulate more and be more mobile in home situation. He states that he understands he has medical needs that will have to be addressed first. All needs met in room. Education OT Patient Education: Correct positioning, Modified ADL techniques, Progress toward Goal/Update tx plan, Purpose of tx/functional activities, Reviewed precautions, Rehab process, Transfer techniques Teaching Recipient: Patient Teaching Methods: Demonstration, Discussion Response to Teaching: Verbalize Understanding, Return Demonstration OT Short Term Goals Short Term Goals Time Frame: Dec 22, 2020 Eatin Oral hygiene: 6 Toileting hygiene: 3 Shower/bathe self: 3 Upper body dressin Lower body dressin Putting on/taking off footwear: 3 OT Security Director Goals Security Director Goals Time Frame: Jan 05, 2021 Eating (QC): 6 Oral Hygiene (QC): 6 Toileting Hygiene (QC): 6 Shower/Bathe Self (QC): 5 Upper Body Dressing (QC): 6 Lower Body Dressing (QC): 6 On/Off Footwear (QC): 6 Additional Goals: 1-Demonstrate ADL Tasks, 2-Verbalize Understanding, 3- ImproveStrength/Marc 1=Demonstrate adherence to instructed precautions during ADL tasks. 2=Patient will verbalize/demonstrate understanding of assistive devices/modifications for ADL. 3=Patient will improve strength/tolerance for activity to enable patient to perform ADL's. OT Education/Plan Problem List/Assessment Assessment: Decreased Activ Tolerance, Impaired I ADL's, Impaired Self-Care Skills Discharge Recommendations Plan/Recommendations: Continue POC Therapy Discharge Recommendati: Home & Family, Post Acute OT Equpiment Recommendations-D/C: Hip Kit Treatment Plan/Plan of Care Treatment,Training & Education: Yes Patient would benefit from OT for education, treatment and training to promote independence in ADL's, mobility, safety and/or upper extremity function for ADL's. Plan of Care: ADL Retraining, Functional Mobility, UE Funct Exercise/Act Treatment Duration: Jan 05, 2021 Frequency: At least 5 of 7 days/Wk (IRF) Estimated Hrs Per Day: 1.5 hours per day Agreement: Yes Rehab Potential: Fair Time/GCodes Start Time: 09:15 Stop Time: 10:15 Total Time Billed (hr/min): 60 Billed Treatment Time 1, ADL x 60minutes NESTOR ORTEZ OT Dec 17, 2020 12:05
--- NOTE | 2020-12-17 12:51 | Physical Therapy Daily Note ---
PT Daily Note-Current Subjective Patient in recliner pre tx, agrees to PT, has no complaints of pain. Appearance Patient in bed post tx with nurse call, phone, tray, all needs met. Mental Status Patient Orientation: Normal For Age back brace Transfers SCALE: Activities may be completed with or without assistive devices. 4-Dqrahmpktv-xleezmg completes the activity by him/herself with no assistance from a helper. 5-Set-up or Clean-up Assistance-helper sets up or cleans up; patient completes activity. [place] assists only prior to or following the activity. 4-Supervision or Touching Assistance-helper provides verbal cues and/or touchin g/steadying and/or contact guard assistance as patient completes activity. Assistance may be provided throughout the activity or intermittently. 3-Partial/Moderate Assistance-helper does LESS THAN HALF the effort. [place] lifts, holds or supports trunk or limbs, but provides less than half the effort. 2-Substantial/Maximal Assistance-helper does MORE THAN HALF the effort. [place] lifts or holds trunk or limbs and provides more than half the effort. 7-Yhnqddxyj-jgfrdo does ALL the effort. Patient does none of the effort to complete the activity. Or, the assistance of 2 or more helpers is required for the patient to complete the activity. If activity was not attempted, code reason: 7-Patient Refused. 9-Not Applicable-not attempted and the patient did not perform the activity before the current illness, exacerbation or injury. 10-Not Attempted due to Environmental Limitations-(lack of equipment, weather restraints, etc.). 88-Not Attempted due to Medical Conditions or Safety Concerns. Roll Left & Right (QC): 6 Sit to Lying (QC): 6 Sit to Stand (QC): 4 Chair/Qwe-qm-Dpymu Xfer(QC): 4 Patient now performs sit to stand with CGA even from lower surfaces but needs to be set up just right. Weight Bearing Weight Bearing/Tolerated Weight Bearing/Tolerated Gait Training Distance: 200'x2, 120' Walk 10 feet (QC): 4 Walk 50 ft with 2 Turns(QC): 4 Walk 150 ft (QC): 4 Gait Persons Needed: 1 Gait Assistive Device: FWW slow, still some unsteadiness, slight right knee hyperextension Exercises sit to stand from medium height surface 3 sets of 10 NuStep Minutes: 15 NuStep Workload: 4 Treatments LE strengthening, bed mobility and transfers, ambulation Assessment Current Status: Fair Progress improving LE strength, patient states he would like to go home in a couple of days PT Short Term Goals Short Term Goals Time Frame: Dec 22, 2020 Roll Left & Right: 6 Sit to lyin Lying to sitting on side of be: 6 Sit to stand: 3 Chair/txs-ci-rviqh transfer: 3 Walk 10 feet: 3 Walk 50 feet with two turns: 3 Walk 150 feet: 3 1 step (curb): 3 PT Finance Executive Goals Long-Term Goals PT Finance Executive Goals Time Frame: Jan 05, 2021 Roll Left & Right (QC): 6 Sit to Lying (QC): 6 Lying-Sitting on Side/Bed(QC): 6 Sit to Stand (QC): 6 Chair/Mqn-jy-Qttbk Xfer(QC): 6 Toilet Transfer (QC): 6 Car Transfer (QC): 6 Does the Patient Walk: Yes Walk 10 feet (QC): 6 Walk 50ft with 2 Turns (QC): 6 Walk 150 ft (QC): 6 Walking 10ft on Uneven Surface: 6 1 Step (curb) (QC): 4 4 Steps (QC): 4 12 Steps (QC): 4 Picking up an Object (QC): 4 Wheel 50 feet with 2 turns (QC: 9 Wheel 150 feet: 9 PT Plan Problem List Problem List: Activity Tolerance, Functional Strength, Safety, Balance, Gait, Transfer, Bed Mobility, ROM Treatment/Plan Treatment Plan: Continue Plan of Care Treatment Plan: Bed Mobility, Education, Functional Activity Marc, Functional Strength, Group Therapy, Gait, Safety, Therapeutic Exercise, Transfers, Other Treatment Duration: Jan 05, 2021 Frequency: At least 5 of 7 days/Wk (IRF) Estimated Hrs Per Day: 1.5 hours per day Patient and/or Family Agrees t: Yes Safety Risks/Education Patient Education: Gait Training, Transfer Techniques, Correct Positioning, Reviewed Don/Doff Brace, Safety Issues Teaching Recipient: Patient Teaching Methods: Demonstration, Discussion Response to Teaching: Reinforcement Needed Time/GCodes Time In: 1115 Time Out: 1215 Total Billed Treatment Time: 60 Total Billed Treatment 1 visit EX 30' FA 30' RORY FRANCOIS PT Dec 17, 2020 12:51
--- NOTE | 2020-12-17 14:34 | Therapy Group Daily Note ---
Therapy Daily Group Note Patient Education Topic Home Safety, Exercises Exercises LE Seated Exercise, UE Exercise Session Ratio (pt:therapist): 4:1 Goal of Session: Home Safety Strategies, UE/LE Strengthing Goal Met for this Session: Yes Pt Benefit of Group: Contributions to Others, F/U Use of Strategies @Home, Increased Functional Safety, Increased Functional Strength, Improved Cognition, Recognition of Peers, Socialization Other/Notes Patient was in WC pre tx, propelled to the therapy gym and participated in group therapy with other patient's. Patient's had to introduce themselves and big foam dice to answer the selected question. Patient's then participated in a home safety education tool played like [employer]. During this patient's also participated in UE and LE exercises. Afterward, patient propelled back to his room and back to bed with nurse call, phone, tray, all needs met. Start Time: 13:00 Stop Time: 14:00 Total Billed Treatment Time: 60 Total Billed Treatment 1 visit [facility] 60RORY POWERS PT Dec 17, 2020 14:34
[2020-12-17 20:05] VITALS: BP 120/60
[2020-12-17] MEDS ORDERED: LIDOCAINE UROJET 2% GEL 10 ML PKG TOP ONE (22:45)
[2020-12-17] MEDS ORDERED: LIDOCAINE UROJET 2% GEL 10 ML PKG ONE (22:47)
[2020-12-18] MEDS: BETHANECHOL 25 MG (URECHOLINE) TAB PO SCH ×4 (06:11→20:08)
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
[2020-12-18 08:00] VITALS: BP 140/71
--- NOTE | 2020-12-18 08:34 | Progress Note - Urology ---
Progress Note-Urology Progress Notes/Assess & Plan Progress/Assessment & Plan UNABLE TO VOID ON OWN. TRY TOV AGAIN IN 24-48 HRS Final Diagnosis RETENTION LISA FUENTES MD Dec 18, 2020 08:34
[2020-12-18] MEDS: DOCUSATE SODIUM 100 MG (COLACE) CAP PO SCH ×2 (08:39→20:08)
[2020-12-18] MEDS: TAMSULOSIN 0.4 MG (FLOMAX) CAP PO SCH ×2 (08:39→20:08)
[2020-12-18] MEDS: polyethylene glycoL POWDER 17 GM (MIRALAX) PACK PO SCH ×2 (08:39→20:08)
--- NOTE | 2020-12-18 09:58 | Physical Therapy Daily Note ---
PT Daily Note-Current Subjective Patient in WC pre tx, agrees to PT, has no complaints of pain. Appearance Patient in recliner post tx with nurse call, phone, tray, all needs met. Mental Status Patient Orientation: Normal For Age back brace Transfers SCALE: Activities may be completed with or without assistive devices. 5-Djbtztfpax-lcmlxff completes the activity by him/herself with no assistance from a helper. 5-Set-up or Clean-up Assistance-helper sets up or cleans up; patient completes activity. [place] assists only prior to or following the activity. 4-Supervision or Touching Assistance-helper provides verbal cues and/or touching /steadying and/or contact guard assistance as patient completes activity. Assistance may be provided throughout the activity or intermittently. 3-Partial/Moderate Assistance-helper does LESS THAN HALF the effort. [place] lifts, holds or supports trunk or limbs, but provides less than half the effort. 2-Substantial/Maximal Assistance-helper does MORE THAN HALF the effort. [place] lifts or holds trunk or limbs and provides more than half the effort. 6-Nraxxzwvz-lhcgrj does ALL the effort. Patient does none of the effort to complete the activity. Or, the assistance of 2 or more helpers is required for the patient to complete the activity. If activity was not attempted, code reason: 7-Patient Refused. 9-Not Applicable-not attempted and the patient did not perform the activity before the current illness, exacerbation or injury. 10-Not Attempted due to Environmental Limitations-(lack of equipment, weather restraints, etc.). 88-Not Attempted due to Medical Conditions or Safety Concerns. Roll Left & Right (QC): 6 Sit to Lying (QC): 6 Lying to Sitting/Side of Bed(Q: 6 Sit to Stand (QC): 4 Chair/Wdv-jd-Gdeyi Xfer(QC): 4 Toilet Transfer (QC): 4 Car Transfer (QC): 4 Patient performs bed mobility and supine <-> sit with independence, sit <-> stand and transfers with CGA, car transfer CGA. Patient sometimes has difficulty with sit to stand from lower surfaces and needs cues for proper positioning. Weight Bearing Weight Bearing/Tolerated Weight Bearing/Tolerated Gait Training Does the Patient Walk?: Yes Distance: 200'x2 Walk 10 feet (QC): 4 Walk 50 ft with 2 Turns(QC): 4 Walk 150 ft (QC): 4 Walking 10ft/uneven surface-QC: 4 Gait Persons Needed: 1 Gait Assistive Device: FWW Patient can ambulate 200' with a rolling walker with CGA (including 50' with at least 2 turns of 90 degrees and 10' over an uneven surface), he ambulates slowly, slightly unsteady but has no had a LOB, has knee hyperextension especially on the right side which should improve as he gets stronger. Wheelchair Training Does the Pt Use a Wheelchair?: No Wheel 50 ft with 2 turns (QC): 9 Wheel 150 ft (QC): 9 Stair Training 1 Step (curb) (QC): 88 4 Steps (QC): 88 12 Steps (QC): 88 Balance Picking up an Object (QC): 88 Exercises LAQ alternating for 5 min with 2# ankle weights NuStep Minutes: 15 NuStep Workload: 5 Treatments bed mobility and transfers, ambulation, functional strengthening Assessment Current Status: Fair Progress slowly progressing strength, patient states he has a ramp to get into his home and doesn't need to use any stairs PT Short Term Goals Short Term Goals Time Frame: Dec 22, 2020 Roll Left & Right: 6 Sit to lyin Lying to sitting on side of be: 6 Sit to stand: 3 Chair/szt-ku-furnk transfer: 3 Walk 10 feet: 3 Walk 50 feet with two turns: 3 Walk 150 feet: 3 1 step (curb): 3 PT [place] Goals Senior Living Goals PT Senior Living Goals Time Frame: Jan 05, 2021 Roll Left & Right (QC): 6 Sit to Lying (QC): 6 Lying-Sitting on Side/Bed(QC): 6 Sit to Stand (QC): 6 Chair/Exu-uf-Quwnl Xfer(QC): 6 Toilet Transfer (QC): 6 Car Transfer (QC): 6 Does the Patient Walk: Yes Walk 10 feet (QC): 6 Walk 50ft with 2 Turns (QC): 6 Walk 150 ft (QC): 6 Walking 10ft on Uneven Surface: 6 1 Step (curb) (QC): 4 4 Steps (QC): 4 12 Steps (QC): 4 Picking up an Object (QC): 4 Wheel 50 feet with 2 turns (QC: 9 Wheel 150 feet: 9 PT Plan Problem List Problem List: Activity Tolerance, Functional Strength, Safety, Balance, Gait, Transfer, Bed Mobility, ROM Treatment/Plan Treatment Plan: Continue Plan of Care Treatment Plan: Bed Mobility, Education, Functional Activity Marc, Functional Strength, Group Therapy, Gait, Safety, Therapeutic Exercise, Transfers, Other Treatment Duration: Jan 05, 2021 Frequency: At least 5 of 7 days/Wk (IRF) Estimated Hrs Per Day: 1.5 hours per day Patient and/or Family Agrees t: Yes Safety Risks/Education Patient Education: Gait Training, Transfer Techniques, Correct Positioning, Safety Issues Teaching Recipient: Patient Teaching Methods: Demonstration, Discussion Response to Teaching: Reinforcement Needed Time/GCodes Time In: 0900 Time Out: 1000 Total Billed Treatment Time: 60 Total Billed Treatment 1 visit EX 20' FA 40' RORY FRANCOIS PT Dec 18, 2020 09:58
--- NOTE | 2020-12-18 12:05 | Occupational Ther Daily Note ---
OT Current Status-Daily Note Subjective No pain reported. Appearance Pt. up in chair. Agreeable to work with OT. Mental Status/Objective Patient Orientation: Person, Place, Time, Situation ADL-Treatment Therapy Code Descriptions/Definitions Functional [place] Measure: 0=Not Assessed/NA 4=Minimal Assistance 1=Total Assistance 5=Supervision or Setup 2=Maximal Assistance 6=Modified [place] 3=Moderate Assistance 7=Complete IndependenceSCALE: Activities may be completed with or without assistive devices. 8-Khplvusijz-swlfhol completes the activity by him/herself with no assistance from a helper. 5-Set-up or Clean-up Assistance-helper sets up or cleans up; patient completes activity. [place] assists only prior to or following the activity. 4-Supervision or Touching Assistance-helper provides verbal cues and/or touching/steadying and/or contact guard assistance as patient completes activity. Assistance may be provided throughout the activity or intermittently. 3-Partial/Moderate Assistance-helper does LESS THAN HALF the effort. [place] lifts, holds or supports trunk or limbs, but provides less than half the effort. 2-Substantial/Maximal Assistance-helper does MORE THAN HALF the effort. [place] lifts or holds trunk or limbs and provides more than half the effort. 3-Nrvpuxtqg-mtqork does ALL the effort. Patient does none of the effort to complete the activity. Or, the assistance of 2 or more helpers is required for the patient to complete the activity. If activity was not attempted, code reason: 7-Patient Refused. 9-Not Applicable-not attempted and the patient did not perform the activity before the current illness, exacerbation or injury. 10-Not Attempted due to Environmental Limitations-(lack of equipment, weather restraints, etc.). 88-Not Attempted due to Medical Conditions or Safety Concerns. Eating (QC): 6 Oral Hygiene (QC): 6 Shower/Bathe Self (QC): 2 (In shower without prosthetic UE) Upper Body Dressing (QC): 3 (Min assist in this particular situation. Pt. is able to complete independently in his own home environment.) Lower Body Dressing (QC): 4 On/Off Footwear: 4 (With sock aide. Pt. will use slip on shoes at home.) Other Treatment Pt. is able to stand from chair with Mod I. Pt. ambulates to shower with walker and SBA. Ambulates back to bed with SBA. Transfers into bed with Mod I. All needs met. Education OT Patient Education: Correct positioning, Modified ADL techniques, Progress toward Goal/Update tx plan, Purpose of tx/functional activities, Reviewed precautions, Rehab process, Transfer techniques, Use of adapted equipment Teaching Recipient: Patient Teaching Methods: Demonstration, Discussion Response to Teaching: Verbalize Understanding, Return Demonstration OT Short Term Goals Short Term Goals Time Frame: Dec 22, 2020 Eatin Oral hygiene: 6 Toileting hygiene: 3 Shower/bathe self: 3 Upper body dressin Lower body dressin Putting on/taking off footwear: 3 OT Mcc Goals Mcc Goals Time Frame: Jan 05, 2021 Eating (QC): 6 Oral Hygiene (QC): 6 Toileting Hygiene (QC): 6 Shower/Bathe Self (QC): 5 Upper Body Dressing (QC): 6 Lower Body Dressing (QC): 6 On/Off Footwear (QC): 6 Additional Goals: 1-Demonstrate ADL Tasks, 2-Verbalize Understanding, 3- ImproveStrength/Marc 1=Demonstrate adherence to instructed precautions during ADL tasks. 2=Patient will verbalize/demonstrate understanding of assistive devices/modifications for ADL. 3=Patient will improve strength/tolerance for activity to enable patient to perform ADL's. OT Education/Plan Problem List/Assessment Assessment: Decreased Activ Tolerance Discharge Recommendations Plan/Recommendations: Continue POC Therapy Discharge Recommendati: Post Acute OT Equpiment Recommendations-D/C: Hip Kit Treatment Plan/Plan of Care Treatment,Training & Education: Yes Patient would benefit from OT for education, treatment and training to promote independence in ADL's, mobility, safety and/or upper extremity function for ADL's. Plan of Care: ADL Retraining, Functional Mobility, UE Funct Exercise/Act Treatment Duration: Jan 05, 2021 Frequency: At least 5 of 7 days/Wk (IRF) Estimated Hrs Per Day: 1.5 hours per day Agreement: Yes Rehab Potential: Good Time/GCodes Start Time: 10:00 Stop Time: 11:00 Total Time Billed (hr/min): 60 Billed Treatment Time 1, ADL x 4 NESTOR ORTEZ OT Dec 18, 2020 12:05
--- NOTE | 2020-12-18 13:57 | Occupational Ther Daily Note ---
OT Current Status-Daily Note Subjective No pain reported. Mental Status/Objective Patient Orientation: Person, Place, Time, Situation ADL-Treatment Therapy Code Descriptions/Definitions Functional [place] Measure: 0=Not Assessed/NA 4=Minimal Assistance 1=Total Assistance 5=Supervision or Setup 2=Maximal Assistance 6=Modified [place] 3=Moderate Assistance 7=Complete IndependenceSCALE: Activities may be completed with or without assistive devices. 9-Zdyuoairgy-mejgkva completes the activity by him/herself with no assistance from a helper. 5-Set-up or Clean-up Assistance-helper sets up or cleans up; patient completes activity. [place] assists only prior to or following the activity. 4-Supervision or Touching Assistance-helper provides verbal cues and/or touching/steadying and/or contact guard assistance as patient completes activity. Assistance may be provided throughout the activity or intermittently. 3-Partial/Moderate Assistance-helper does LESS THAN HALF the effort. [place] lifts, holds or supports trunk or limbs, but provides less than half the effort. 2-Substantial/Maximal Assistance-helper does MORE THAN HALF the effort. [place] lifts or holds trunk or limbs and provides more than half the effort. 4-Qklpkpkqh-acsbhf does ALL the effort. Patient does none of the effort to complete the activity. Or, the assistance of 2 or more helpers is required for the patient to complete the activity. If activity was not attempted, code reason: 7-Patient Refused. 9-Not Applicable-not attempted and the patient did not perform the activity before the current illness, exacerbation or injury. 10-Not Attempted due to Environmental Limitations-(lack of equipment, weather restraints, etc.). 88-Not Attempted due to Medical Conditions or Safety Concerns. Upper Body Dressing (QC): 5 (back brace.) Other Treatment Pt. transferred supine-sit with Mod I. Stood from bed with mod I at walker level. Pt. ambulated with SBA to therapy gym with walker, and increased time needed. Completed UE stretches with ball for support, with emphasis to bring UE together at bilateral speed. Noted that with this method, pt's arm harness for prosthesis moves and this does not work. Talked with pt about other methods of UE continued stretch that he can complete at home level. Pt. verbalized understanding. PT took over treatment in therapy area. Education OT Patient Education: Correct positioning, Exercise program, Modified ADL techniques, Progress toward Goal/Update tx plan, Purpose of tx/functional activities, Reviewed precautions, Rehab process, Transfer techniques Teaching Recipient: Patient Teaching Methods: Demonstration, Discussion Response to Teaching: Verbalize Understanding, Return Demonstration OT Short Term Goals Short Term Goals Time Frame: Dec 22, 2020 Eatin Oral hygiene: 6 Toileting hygiene: 3 Shower/bathe self: 3 Upper body dressin Lower body dressin Putting on/taking off footwear: 3 OT Prison Goals Prison Goals Time Frame: Jan 05, 2021 Eating (QC): 6 Oral Hygiene (QC): 6 Toileting Hygiene (QC): 6 Shower/Bathe Self (QC): 5 Upper Body Dressing (QC): 6 Lower Body Dressing (QC): 6 On/Off Footwear (QC): 6 Additional Goals: 1-Demonstrate ADL Tasks, 2-Verbalize Understanding, 3- ImproveStrength/Marc 1=Demonstrate adherence to instructed precautions during ADL tasks. 2=Patient will verbalize/demonstrate understanding of assistive devices/modifications for ADL. 3=Patient will improve strength/tolerance for activity to enable patient to perform ADL's. OT Education/Plan Problem List/Assessment Assessment: Decreased Activ Tolerance Discharge Recommendations Plan/Recommendations: Continue POC Treatment Plan/Plan of Care Treatment,Training & Education: Yes Patient would benefit from OT for education, treatment and training to promote independence in ADL's, mobility, safety and/or upper extremity function for ADL's. Plan of Care: ADL Retraining, Functional Mobility, UE Funct Exercise/Act Treatment Duration: Jan 05, 2021 Frequency: At least 5 of 7 days/Wk (IRF) Estimated Hrs Per Day: 1.5 hours per day Agreement: Yes Rehab Potential: Good Time/GCodes Start Time: 13:00 Stop Time: 13:30 Total Time Billed (hr/min): 30 Billed Treatment Time 1, FA x 2 NESTOR ORTEZ OT Dec 18, 2020 13:57
--- NOTE | 2020-12-18 14:19 | Physical Therapy Daily Note ---
PT Daily Note-Current Subjective Patient in therapy gym pre tx, agrees to PT, has no complaints of pain. Appearance Patient in bed post tx with nurse call, phone, tray, all needs met. Mental Status Patient Orientation: Normal For Age back brace Transfers SCALE: Activities may be completed with or without assistive devices. 9-Vkpnbzfxsq-idwimpo completes the activity by him/herself with no assistance from a helper. 5-Set-up or Clean-up Assistance-helper sets up or cleans up; patient completes activity. [place] assists only prior to or following the activity. 4-Supervision or Touching Assistance-helper provides verbal cues and/or touc dee/steadying and/or contact guard assistance as patient completes activity. Assistance may be provided throughout the activity or intermittently. 3-Partial/Moderate Assistance-helper does LESS THAN HALF the effort. [place] lifts, holds or supports trunk or limbs, but provides less than half the effort. 2-Substantial/Maximal Assistance-helper does MORE THAN HALF the effort. [place] lifts or holds trunk or limbs and provides more than half the effort. 2-Ghwzdwlsi-edtfsx does ALL the effort. Patient does none of the effort to complete the activity. Or, the assistance of 2 or more helpers is required for the patient to complete the activity. If activity was not attempted, code reason: 7-Patient Refused. 9-Not Applicable-not attempted and the patient did not perform the activity before the current illness, exacerbation or injury. 10-Not Attempted due to Environmental Limitations-(lack of equipment, weather restraints, etc.). 88-Not Attempted due to Medical Conditions or Safety Concerns. Roll Left & Right (QC): 6 Sit to Lying (QC): 6 Sit to Stand (QC): 4 Chair/Ksi-ya-Tmtrm Xfer(QC): 4 Patient can now stand from lower surfaces with CGA, it may take him a couple of tries to find the right position to use his UE prosthesis effectively Weight Bearing Weight Bearing/Tolerated Weight Bearing/Tolerated Gait Training Distance: 200'x2, 150' Walk 10 feet (QC): 4 Walk 50 ft with 2 Turns(QC): 4 Walk 150 ft (QC): 4 Gait Persons Needed: 1 Gait Assistive Device: FWW CGA, slight unsteadiness but no LOB, still some knee hyperextension especially on the right side Treatments bed mobility and transfers, ambulation Assessment Current Status: Fair Progress proving functional mobility PT Short Term Goals Short Term Goals Time Frame: Dec 22, 2020 Roll Left & Right: 6 Sit to lyin Lying to sitting on side of be: 6 Sit to stand: 3 Chair/wgm-ag-akcan transfer: 3 Walk 10 feet: 3 Walk 50 feet with two turns: 3 Walk 150 feet: 3 1 step (curb): 3 PT Longterm Goals Harness Placer Goals PT Harness Placer Goals Time Frame: Jan 05, 2021 Roll Left & Right (QC): 6 Sit to Lying (QC): 6 Lying-Sitting on Side/Bed(QC): 6 Sit to Stand (QC): 6 Chair/Cex-wr-Wujfh Xfer(QC): 6 Toilet Transfer (QC): 6 Car Transfer (QC): 6 Does the Patient Walk: Yes Walk 10 feet (QC): 6 Walk 50ft with 2 Turns (QC): 6 Walk 150 ft (QC): 6 Walking 10ft on Uneven Surface: 6 1 Step (curb) (QC): 4 4 Steps (QC): 4 12 Steps (QC): 4 Picking up an Object (QC): 4 Wheel 50 feet with 2 turns (QC: 9 Wheel 150 feet: 9 PT Plan Problem List Problem List: Activity Tolerance, Functional Strength, Safety, Balance, Gait, Transfer, Bed Mobility, ROM Treatment/Plan Treatment Plan: Continue Plan of Care Treatment Plan: Bed Mobility, Education, Functional Activity Marc, Functional Strength, Group Therapy, Gait, Safety, Therapeutic Exercise, Transfers, Other Treatment Duration: Jan 05, 2021 Frequency: At least 5 of 7 days/Wk (IRF) Estimated Hrs Per Day: 1.5 hours per day Patient and/or Family Agrees t: Yes Safety Risks/Education Patient Education: Gait Training, Transfer Techniques, Correct Positioning, Safety Issues Teaching Recipient: Patient Teaching Methods: Demonstration, Discussion Response to Teaching: Reinforcement Needed Time/GCodes Time In: 1330 Time Out: 1400 Total Billed Treatment Time: 30 Total Billed Treatment 1 visit FA 30' RORY FRANCOIS PT Dec 18, 2020 14:19
[2020-12-18 20:00] VITALS: BP 112/67
[2020-12-19] MEDS: BETHANECHOL 25 MG (URECHOLINE) TAB PO SCH ×2 (05:38→12:01)
[2020-12-19] MEDS ORDERED: BTH10T PO ×2 (06:02)
[2020-12-19] MEDS ORDERED: ACHYD1T PO ×2 (06:02)
[2020-12-19] MEDS ORDERED: TMSL.4C PO ×2 (06:02)
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
--- NOTE | 2020-12-19 06:04 | D/C HH Face to Face Order ---
D/C Face to Face Orders Reconcile Patient Problems Problems Reviewed?: Yes Instructions for Patient [facility] Patient Instructions/FollowUp: PCP [address] Priest today 1315 Physician to follow Patient: PCP Discharge Diet for Home: No Restrictions Patient Problems: Lumbar spine surgery Patient Data-Allergies,Ht & Wt Patient Allergies: Coded Allergies: No Known Drug Allergies (Unverified , 12/07/20) Home Health Need/Face to Face Date of Face to Face: Dec 19, 2020 Clinical Findings: Instability, Muscle weakness, Pain with ambulation, Unsteady gait I have seen Pt [id number]: Yes Discharged To: Home Diagnosis/Conditions: Lumbar spine surgery Patient is Homebound due to: Luk[place] fall risk due to instabilty, Muscle weakness, Pain w/ambulation Homebound Status Due to the above stated illness, injury or surgical procedure (medical condition or diagnosis) and associated clinical findings, the patient is homebound because of his/her inability to leave home except with aid of a supportive device and/or person AND leaving the home requires a considerable and taxing effort or is medically contraindicated. Pt req the following assistanc: Walker Home Health Nursing Orders Home Health Services Order: Nursing Services, Tube Cutter Operator-Evaluate & Treat, Physical Therapy-Evaluate & Treat, Other (bath aide) Certify Stmt I certify that this patient is under my care and that I, a nurse practitioner or a physician; a operating room assistant working with me, had a face to face encounter that - meets the physician face to face encounter requirements with this patient as dated. KARL CAMPBELL DO Dec 19, 2020 06:04
[2020-12-19 07:45] VITALS: BP 164/77
--- NOTE | 2020-12-19 08:24 | Progress Note - Urology ---
Progress Note-Urology Progress Notes/Assess & Plan Progress/Assessment & Plan HOME TODAY AND SEE ME IN OFFICE ON THE WAY FOR [facility]. FULLY EXPLAINED TO THE PATIENT INCLUDING FUTURE PLAN Final Diagnosis RETENTION LISA FUENTES MD Dec 19, 2020 08:24
[2020-12-19 08:59] VITALS: BP 124/72
[2020-12-19] MEDS: DOCUSATE SODIUM 100 MG (COLACE) CAP PO SCH (09:03)
[2020-12-19] MEDS: polyethylene glycoL POWDER 17 GM (MIRALAX) PACK PO SCH (09:03)
[2020-12-19] MEDS: TAMSULOSIN 0.4 MG (FLOMAX) CAP PO SCH (09:03)
--- NOTE | 2020-12-19 11:24 | Therapy Team Discharge Summary ---
Therapy Discharge Summary Discharge Recommendations Date of Discharge Physical Therapy Patient came to rehab with Lumbar interbody fusion L2-3, L3-4 DLIF, Posterior L4-S1 TLIF/L2-S1 Lami. Upon evaluation patient performed bed mobility with min assist, supine <-> sit and sit <-> stand with max assist, no ambulation. Patient has been performing bed mobility and transfer training, balance and endurance training, functional strengthening, stair training, gait training, and education. Patient has made good progress but has only met his snf goals for bed mobility and supine <-> sit. Now, patient performs bed mobility and supine <-> sit with independence, sit <-> stand and transfers with CGA, car transfer CGA, ambulates 200' with a rolling walker with CGA (including 50' with at least 2 turns of 90 degrees and 10' over an uneven surface). Patient is being discharged from this facility today and will be discharged from PT at this time. Occupational Therapy Decreased Activ Tolerance PT Drug Abuse Treatment Specialist Goals Jail Goals PT Drug Abuse Treatment Specialist Goals Time Frame: Jan 05, 2021 Roll Left to Right (QC): 6 Sit to Lying (QC): 6 Lying-Sitting on Side/Bed(QC): 6 Sit to Stand (QC): 6 Chair/Ygm-hj-Nlfrc Xfer(QC): 6 Car Transfer (QC): 6 Does the Patient Walk: Yes Walk 10 feet (QC): 6 Walk 10ft-Uneven Surface(QC): 6 Walk 50ft with 2 Turns (QC): 6 Walk 150 ft (QC): 6 Wheel 50 feet with 2 turns (QC: 9 1 Step (curb) (QC): 4 4 Steps (QC): 4 12 Steps (QC): 4 Picking up an Object (QC): 4 OT Drug Abuse Treatment Specialist Goals Jail Goals Time Frame: Jan 05, 2021 Eating (QC): 6 Oral Hygiene (QC): 6 Shower/Bathe Self (QC): 5 Upper Body Dressing (QC): 6 Lower Body Dressing (QC): 6 On/Off Footwear (QC): 6 Toileting Hygiene (QC): 6 Toilet/Commode Transfer (QC): 6 Additional Goals: 1-Demonstrate ADL Tasks, 2-Verbalize Understanding, 3-ImproveStrength/Marc 1=Demonstrate adherence to instructed precautions during ADL tasks. 2=Patient will verbalize/demonstrate understanding of assistive devices/modifications for ADL. 3=Patient will improve strength/tolerance for activity to enable patient to perform ADL's. RORY FRANCOIS PT Dec 19, 2020 11:24
[2020-12-19 12:20] VITALS: BP 124/72
--- NOTE | 2020-12-19 13:40 | Therapy Team Discharge Summary ---
Therapy Discharge Summary Discharge Recommendations Date of Discharge 12-19-20 Therapy D/C Recommendations: Home Independently Occupational Therapy Pt. has been seen by Occupational therapy to increase overall strength and independence with daily skills. Pt. has made great progress in all areas. Due to pt's previous situation with bilateral prosthetic UE, he has a specific set up and routine that he follows at home, that can't be simulated at this facility. Therefore, pt. unable to fully meet goals of independence in this facility. However, he was able to simulate to best of his ability and verbalize his particular needs and set up at home. Therefore, pt. ready for discharge to be back in his own environment. OT to follow at home setting to assist as needed, and recommend any further suggestions for complete independence. Decreased Activ Tolerance PT Simplex Operator Goals Care Home Goals PT Simplex Operator Goals Time Frame: Jan 05, 2021 Roll Left to Right (QC): 6 Sit to Lying (QC): 6 Lying-Sitting on Side/Bed(QC): 6 Sit to Stand (QC): 6 Chair/Ynq-ql-Xykkz Xfer(QC): 6 Car Transfer (QC): 6 Does the Patient Walk: Yes Walk 10 feet (QC): 6 Walk 10ft-Uneven Surface(QC): 6 Walk 50ft with 2 Turns (QC): 6 Walk 150 ft (QC): 6 Wheel 50 feet with 2 turns (QC: 9 1 Step (curb) (QC): 4 4 Steps (QC): 4 12 Steps (QC): 4 Picking up an Object (QC): 4 OT Simplex Operator Goals Care Home Goals Time Frame: Jan 05, 2021 Eating (QC): 6 (met) Oral Hygiene (QC): 6 (met) Shower/Bathe Self (QC): 5 (not met) Upper Body Dressing (QC): 6 (not met) Lower Body Dressing (QC): 6 (not met) On/Off Footwear (QC): 6 (not met) Toileting Hygiene (QC): 6 (not met) Toilet/Commode Transfer (QC): 6 (not met) Additional Goals: 1-Demonstrate ADL Tasks, 2-Verbalize Understanding, 3- ImproveStrength/Marc 1=Demonstrate adherence to instructed precautions during ADL tasks. 2=Patient will verbalize/demonstrate understanding of assistive devices/modifications for ADL. 3=Patient will improve strength/tolerance for activity to enable patient to perform ADL's. NESTOR ORTEZ OT Dec 19, 2020 13:39
== END 2020-12-19 11:20 | disposition home health service (06) | DRG 552 ==
PROVIDERS: ADMIT Internal Medicine; ATTEND Internal Medicine
DX: M47.16 Other spondylosis with myelopathy, lumbar region (principal); Z89.222 Acquired absence of left upper limb above elbow; Z89.221 Acquired absence of right upper limb above elbow; R33.9 Retention of urine, unspecified; K59.00 Constipation, unspecified; G47.30 Sleep apnea, unspecified
CPT/HCPCS: 36415; 74018; 74019; 80053; 85025

== ENCOUNTER 2020-12-12 07:31 | Day surgery (SDC) | payer MEDICARE ==
--- NOTE | 2020-12-12 07:09 | Progress Note-Pre Operative ---
Pre-Operative Progress Note H&P Reviewed The H&P was reviewed, patient examined and no changes noted. Date Seen by Provider: Dec 12, 2020 Time Seen by Provider: 07:08 Date H&P Reviewed: Dec 12, 2020 Time H&P Reviewed: 07:08 Pre-Operative Diagnosis: URINE RETENTION LISA FUENTES MD Dec 12, 2020 07:08
--- NOTE | 2020-12-12 07:12 | Progress Note-Post Operative ---
Post-Operative Progess Note Surgeon (s)/Asset Analyst (s) Surgeon LISA FUENTES MD Asset Analyst: NONE Pre-Operative Diagnosis URINE RETENTION Post-Operative Diagnosis SAME Procedure & Operative Findings Date of Procedure 12/12/20 Procedure Performed/Findings CYSTOSCOPY Anesthesia Type LOCAL Estimated Blood Loss Estimated blood loss (mL): NONE Specimens/Packing Specimens Removed NONE Packing: NONE LISA FUENTES MD Dec 12, 2020 07:12
[~2020-12-12 07:31] MED LIST: HYDR-3817 PO; HYDR-3820 PO
[2020-12-12] MEDS ORDERED: LIDOCAINE UROJET 2% GEL 10 ML PKG TOP ONE (08:15)
--- NOTE | 2020-12-12 13:40 | OPERATIVE REPORT ---
DATE OF SERVICE: 12/12/2020 PREOPERATIVE DIAGNOSIS: Urinary retention. POSTOPERATIVE DIAGNOSIS: Urinary retention. OPERATION PERFORMED: Cystoscopy. SURGEON: Chaim Fuentes MD ANESTHESIA: Local. COMPLICATIONS: None. DESCRIPTION OF PROCEDURE: With the patient supine in his bed after removing the Ramirez catheter, genitalia were prepped and draped in the usual sterile fashion. Urethra was infiltrated with 2% lidocaine jelly and a penile clamp was applied. This was then removed and a flexible cystoscope was introduced under vision. The anterior urethra was normal. The prostate was really not enlarged and was no significant obstruction. Bladder was entered, revealed mild trabeculations. Ureteric orifices normal in shape, size and configuration with clear effluxes. No foreign body, bladder tumor or stone visualized. Cystoscopy was confirmed in an antegrade fashion and the cystoscope was removed. The patient tolerated the procedure and anesthesia well and remained in his bed in stable condition. Examination of the patient revealed external genitalia, adequate medical configuration was decreased size of the testicles. Rectal exam revealed a flat, benign, nontender, elastic prostate. PLAN: We will give the patient a trial of voiding. Follow up with bladder scan and straight cath p.r.n. We will continue Flomax and manage accordingly. The plan was fully explained to the patient. Job ID: [id number] DocumentID: [id number] Dictated Date: 12/12/2020 08:59:07 Project Drilling Engineer Date: 12/12/2020 13:39:35 Dictated By: CHAIM FUENTES MD
[2020-12-19] MEDS ORDERED: ACHYD1T PO ×2 (06:02)
[2020-12-19] MEDS ORDERED: BTH10T PO ×2 (06:02)
[2020-12-19] MEDS ORDERED: TMSL.4C PO ×2 (06:02)
== END 2020-12-12 12:00 ==
LOC: SDC 07:31
PROVIDERS: ATTEND Urology
DX: R33.9 Retention of urine, unspecified (principal); M47.10 Other spondylosis with myelopathy, site unspecified; G72.9 Myopathy, unspecified; N20.0 Calculus of kidney; Z89.201 Acquired absence of right upper limb, unspecified level; Z89.202 Acquired absence of left upper limb, unspecified level; Z87.440 Personal history of urinary (tract) infections; Z79.891 Long term (current) use of opiate analgesic

== ENCOUNTER 2021-01-08 07:04 | Day surgery (SDC) | payer MEDICARE, OTHER ==
[2021-01-08] VITALS (10 sets, daily range): BP systolic 98–120; BP diastolic 62–79
[~2021-01-08] VITALS: Ht 185 cm; Wt 56.8 kg
[~2021-01-08 07:04] MED LIST changes: +ACHYD1T PO; +BTH10T PO; +TMSL.4C PO
[2021-01-08] MEDS ORDERED: cefTRIAXone 1,000 MG in WATER (STERILE) FOR INJECTION 10 ML IV ONE (07:30)
[2021-01-08] MEDS ORDERED: TRAM50TA3 PO (08:21)
[2021-01-08] MEDS: LACTATED RINGERS 1,000 ML IV PRN ×2 (08:31→10:27)
--- NOTE | 2021-01-08 08:45 | Progress Note-Pre Operative ---
Pre-Operative Progress Note H&P Reviewed The H&P was reviewed, patient examined and no changes noted. Date Seen by Provider: Jan 08, 2021 Time Seen by Provider: 08:45 Date H&P Reviewed: Jan 08, 2021 Time H&P Reviewed: 08:45 Pre-Operative Diagnosis: BPH WITH RETENTION LISA FUENTES MD Jan 08, 2021 08:45
[2021-01-08] MEDS ORDERED: ONDANSETRON 4 MG/2 ML (SDV) Z0FRAN ONE (09:29)
[2021-01-08] MEDS ORDERED: proPOfol 200 MG/20 ML (DIPRIVAN) VIAL IV ONE (09:29)
[2021-01-08] MEDS ORDERED: LIDOCAINE 2% 20 ML (XYLOCAINE) VIAL ONE (09:29)
[2021-01-08] MEDS ORDERED: fentaNYL INJ 100 MCG/2 ML AMP ONE (09:29)
[2021-01-08] MEDS ORDERED: GENTAMICIN 40 MG/ML 2 ML INJ SDV ONE ×2 (09:54→09:55)
[2021-01-08] MEDS ORDERED: SEVOFLURANE (ULTANE) 15 ML INHAL SOLN ONE (10:24)
--- NOTE | 2021-01-08 10:50 | Progress Note-Post Operative ---
Post-Operative Progess Note Surgeon (s)/Soil Chemist (s) Surgeon LISA FUENTES MD Soil Chemist: NONE Pre-Operative Diagnosis BPH WITH RETENTION Post-Operative Diagnosis SAME Procedure & Operative Findings Date of Procedure 01/08/21 Procedure Performed/Findings TURP Anesthesia Type GENERAL Estimated Blood Loss Estimated blood loss (mL): LESS THAN 50CC Specimens/Packing Specimens Removed PROSTATE CHIPS Packing: NONE LISA FUENTES MD Jan 08, 2021 10:50
[2021-01-08] MEDS ORDERED: BELLADONNA ALK/OPIUM (B & O) 30 MG SUPP PR PRN (11:00)
[2021-01-08] MEDS ORDERED: MILK OF MAGNESIA 400 MG/5 ML 30 ML UDC PO PRN (11:00)
[2021-01-08] MEDS ORDERED: LACTATED RINGERS 1,000 ML IV SCH ×2 (11:00)
--- NOTE | 2021-01-08 11:51 | Anesthesia-General Post-Op ---
General Patient Condition Mental Status/LOC: Same as Preop Cardiovascular: Satisfactory Nausea/Vomiting: Absent Respiratory: Satisfactory Pain: Controlled Complications: Absent Post Op Complications Complications None Follow Up Care/Instructions Patient Instructions None needed. Anesthesia/Patient Condition Patient Condition Patient is doing well, no complaints, stable vital signs, no apparent adverse anesthesia problems. No complications reported per nursing. ANNA TIDWELL CRNA Jan 08, 2021 11:51
--- NOTE | 2021-01-08 14:10 | OPERATIVE REPORT ---
DATE OF SERVICE: 01/08/2021 PREOPERATIVE DIAGNOSIS: Benign prostatic hypertrophy with retention. POSTOPERATIVE DIAGNOSIS: Benign prostatic hyperplasia with retention. OPERATION PERFORMED: Transurethral resection of the prostate. SURGEON: Lisa Fuentes MD ANESTHESIA: General. COMPLICATIONS: None. DESCRIPTION OF PROCEDURE: Under satisfactory general anesthesia, the patient in lithotomy position, genitalia were prepped and draped in the usual sterile fashion. Urethra was dilated with Roland sound to accommodate a 27-Setswana Mo resectoscope. Resection was started first at the median lobe and median bar that was leveled. Then, the roof was resected from 11 to 1 o'clock position, then the lateral lobe and finally the apical tissues and the floor. Resection was very satisfactory. Hemostasis was complete. Prostatic chips were evacuated. Cystoscopy confirmed intact ureteric orifices, veru and sphincter with good reflex. Resectoscope was then removed and a 22-Setswana 3-way 30 mL balloon catheter was inserted into the bladder. The balloon inflated to 40 mL, connected to continuous bladder irrigation, the return of which was clear. ESTIMATED BLOOD LOSS: Less than 50 mL, none of which was replaced. The patient tolerated the procedure and anesthesia well and was sent to recovery room in stable condition. Job ID: [id number] DocumentID: [id number] Dictated Date: 01/08/2021 10:55:58 Weaving Teacher Date: 01/08/2021 14:09:48 Dictated By: LISA FUENTES MD
[2021-01-08] MEDS: DOCUSATE SODIUM 100 MG (COLACE) CAP PO SCH (20:48)
[2021-01-08] MEDS ORDERED: CALCIUM CARBONATE 500 MG (TUMS) TAB.CHEW PO PRN (22:00)
[2021-01-08] MEDS ORDERED: diphenhydrAMINE 25 MG TAB (BENADRYL) PO PRN (22:00)
[2021-01-08] MEDS ORDERED: LOPERAMIDE 2 MG (IMODIUM) TABLET PO PRN (22:00)
[2021-01-08] MEDS ORDERED: ACETAMINOPHEN 500 MG TAB (TYLENOL) PO PRN (22:00)
[2021-01-08] MEDS ORDERED: ONDANSETRON 4 MG/2 ML (SDV) Z0FRAN IVP PRN (22:00)
[2021-01-08] MEDS ORDERED: MELATONIN 3 MG TABLET PO PRN (22:00)
[2021-01-08] MEDS ORDERED: ALPRAZolam 0.25 MG (XANAX) TAB PO PRN (22:00)
[2021-01-08] MEDS ORDERED: ONDANSETRON 4 MG (ZOFRAN) ORAL DISSOLVE TAB PO PRN (22:00)
[2021-01-08] MEDS ORDERED: DOCUSATE SODIUM 100 MG (COLACE) CAP PO PRN (22:00)
[2021-01-09 00:18] VITALS: BP 111/63
[2021-01-09 03:32] VITALS: BP 122/63
--- NOTE | 2021-01-09 07:47 | Consultation ---
HPI History of Present Illness: Date Seen 01/09/21 Attending Physician Chaim Priest MD PCP No,Local Physician Referring Physician Date of Admission Home Medications & Allergies Home Medications Reviewed patient Home Medication Reconciliation performed by pharmacy medication reconciliations conveyor technician and/or nursing. Patients Allergies have been reviewed. Allergies Allergies Coded Allergies hydrocodone (Verified Allergy, Mild, nausea, constipation, 01/08/21) Past Uztwejj-Aaavtb-Jihdmn Hx Patient Social History Alcohol Use: Rarely Uses Recreational Drug Use: No Smoking Status: Never a Smoker Recent Foreign Travel: No Contact w/other who traveled: No Recent Hopitalizations: Yes ([place] [facility] [place]) Immunizations Up To Date Date of Influenza Vaccine: Apr 05, 2020 Seasonal Allergies Seasonal Allergies: No Past Medical History Surgeries: Abdominal, Amputation, Orthopedic Hernia repair, skin grafts Currently Using CPAP: No Currently Using BIPAP: No Genitourinary: Bladder Infection, Kidney Stones Musculoskeletal: Amputee, Degenerate Disk Disease, Arthritis Loss of Vision: Denies Hearing Impairment: Denies Physical Exam Physical Exam Vital Signs Vital Signs - First Documented 01/08/21 07:30 Temp 36.1 Pulse 71 Resp 18 B/P (MAP) 109/75 (86) Pulse Ox 100 O2 Delivery Room Air Capillary Refill : Less Than 3 Seconds Height, Weight, BMI Height: '" Weight: lbs. oz. kg; 16.59 BMI Method: Results Results/Procedures Labs Laboratory Tests 01/09/21 08:55 Patient resulted labs reviewed. KARL CAMPBELL DO Jan 09, 2021 07:47
--- NOTE | 2021-01-09 08:00 | Progress Note - Urology ---
Progress Note-Urology Progress Notes/Assess & Plan Progress/Assessment & Plan DOING AND FEELIMG VERY WELL. URINE JAZMIN CLEAR. PLAN PER ORDERS Final Diagnosis BPH AND RETENTION LISA FUENTES MD Jan 09, 2021 08:00
[2021-01-09] MEDS: DOCUSATE SODIUM 100 MG (COLACE) CAP PO SCH (08:10)
[2021-01-09 08:59] VITALS: BP 113/62
[2021-01-09] MEDS ORDERED: SENNA W/DOCUSATE (SENOKOT S) TABLET PO SCH (09:00)
[2021-01-09] MEDS ORDERED: polyethylene glycoL POWDER 17 GM (MIRALAX) PACK PO SCH (09:00)
[2021-01-09 09:08] LABS: ALBUMIN 3.4 GM/DL (3.2-4.5); BASOPHILS # (AUTO) 0.1 10^3/uL (0.0-0.1); BASOPHILS % (AUTO) 1 % (0-10); CHLORIDE 105 MMOL/L (98-107); EOSINOPHILS # (AUTO) 0.1 10^3/uL (0.0-0.3); EOSINOPHILS % (AUTO) 1 % (0-10); HEMATOCRIT 31 % (40-54); HEMOGLOBIN 9.8 g/dL (13.3-17.7); LYMPHOCYTES # (AUTO) 0.8 10^3/uL (1.0-4.0); LYMPHOCYTES % (AUTO) 8 % (12-44); MEAN CORPUSCULAR HEMOGLOBIN 29 pg (25-34); MEAN CORPUSCULAR HGB CONC 32 g/dL (32-36); MEAN CORPUSCULAR VOLUME 91 fL (80-99); MEAN PLATELET VOLUME 12.9 fL (9.0-12.2); MONOCYTES # (AUTO) 0.5 10^3/uL (0.0-1.0); MONOCYTES % (AUTO) 5 % (0-12); NEUTROPHILS # (AUTO) 9.4 10^3/uL (1.8-7.8); NEUTROPHILS % (AUTO) 86 % (42-75); PLATELET COUNT 243 10^3/uL (130-400); SODIUM 140 MMOL/L (135-145); WHITE BLOOD COUNT 10.9 10^3/uL (4.3-11.0)
[2021-01-09 09:09] LABS: CALCIUM 9.4 MG/DL (8.5-10.1)
[2021-01-09 09:10] LABS: GLUCOSE 111 MG/DL (70-105)
[2021-01-09 09:11] LABS: TOTAL PROTEIN 6.5 GM/DL (6.4-8.2)
[2021-01-09 09:12] LABS: BILIRUBIN,TOTAL 0.5 MG/DL (0.1-1.0); CARBON DIOXIDE 27 MMOL/L (21-32)
[2021-01-09 09:14] LABS: ALKALINE PHOSPHATASE 105 U/L (40-136); CREATININE SERUM 0.75 MG/DL (0.60-1.30); GFR ESTIMATED > 60
[2021-01-09 09:15] LABS: BUN/CREATININE RATIO 13
[2021-01-09 09:17] LABS: ALANINE AMINOTRANSFERASE 17 U/L (0-55)
[2021-01-09 09:51] LABS: BASOPHILS % (MANUAL) 1 %; LYMPHOCYTES % (MANUAL) 16 %; MONOCYTES % (MANUAL) 4 %; NEUTROPHILS % (MANUAL) 79 %
[2021-01-09 09:52] LABS: HYPOCHROMASIA MODERATE
[2021-01-09] MEDS ORDERED: CIPR-225 PO (12:30)
[2021-01-09] MEDS ORDERED: BTH10T PO (12:30)
[2021-01-09 12:41] VITALS: BP 99/55
--- NOTE | 2021-01-09 16:38 | Consultation - Hospitalist ---
HPI History of Present Illness: HPI/Chief Complaint Pavel Argueta is a 75 year old male with PMH BPH, neurogenic bladder, history of traumatic bilateral upper extremity amputation, who presented for TURP. He reports that he is doing well. He denies any complaints. His bautista was taken out this morning and he has not yet voided. He wants the bautista put back in and to be allowed to leave. Source: patient Exam Limitations: no limitations Date Seen 01/09/21 Attending Physician Chaim Priest MD PCP No,Local Physician Referring Physician Date of Admission Home Medications & Allergies Home Medications Reviewed patient Home Medication Reconciliation performed by pharmacy medication reconciliations photonics technician and/or nursing. Patients Allergies have been reviewed. Allergies Allergies Coded Allergies hydrocodone (Verified Allergy, Mild, nausea, constipation, 01/08/21) Past Ctfowqw-Ffjkqi-Flxjdw Hx Patient Social History Smoking Status: Never a Smoker Immunizations Up To Date Date of Influenza Vaccine: Apr 05, 2020 First/Initial COVID19 Vaccinat: SEP 2020 Second COVID19 Vaccination Abraham: SEP 2020 Seasonal Allergies Seasonal Allergies: No Current Status Primary Language: Malian Past Medical History Surgeries: Abdominal, Amputation, Orthopedic Sleep Apnea Currently Using CPAP: No Currently Using BIPAP: No Bladder Infection, Kidney Stones Amputee, Degenerate Disk Disease, Arthritis Loss of Vision: Denies Hearing Impairment: Denies Family Medical History No Pertinent Family Hx Review of Systems Constitutional: no symptoms reported EENTM: no symptoms reported Respiratory: no symptoms reported Cardiovascular: no symptoms reported Gastrointestinal: no symptoms reported Genitourinary: decreased output Musculoskeletal: no symptoms reported Skin: no symptoms reported Psychiatric/Neurological: No Symptoms Reported Physical Exam Physical Exam Vital Signs Vital Signs - First Documented 01/08/21 07:30 Temp 36.1 Pulse 71 Resp 18 B/P (MAP) 109/75 (86) Pulse Ox 100 O2 Delivery Room Air Capillary Refill : Less Than 3 Seconds Height, Weight, BMI Height: '" Weight: lbs. oz. kg; 16.59 BMI Method: General Appearance: No Apparent Distress, WD/WN HEENT: PERRL/EOMI, Pharynx Normal Neck: Normal Inspection, Supple Respiratory: Lungs Clear, Normal Breath Sounds, No Respiratory Distress Cardiovascular: Regular Rate, Rhythm, No Edema, No Murmur Gastrointestinal: Normal Bowel Sounds, Non Tender, Soft Extremity: Non Tender, No Pedal Edema, Other (bilateral upper extremity prostheses in place) Neurologic/Psychiatric: Alert, Oriented x3, No Motor/Sensory Deficits, Normal Mood/Affect Skin: Normal Color, Warm/Dry Results Results/Procedures Labs Laboratory Tests 01/09/21 08:55 Patient resulted labs reviewed. 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
== END 2021-01-09 14:15 | disposition home or self-care (01) ==
LOC: SDC 07:04 → 4TH 11:24 → SDC 01-09 14:15
PROVIDERS: ATTEND Urology
DX: N40.1 Benign prostatic hyperplasia with lower urinary tract symptoms (principal); R33.8 Other retention of urine; N31.9 Neuromuscular dysfunction of bladder, unspecified; G62.9 Polyneuropathy, unspecified; Z79.899 Other long term (current) drug therapy
CPT/HCPCS: 36415; 80053; 85007; 85027; 86850; 86900; 86901; 87081

== ENCOUNTER 2021-04-23 11:17 | Inpatient (IN) | payer MEDICARE, OTHER ==
[~2021-04-23] VITALS: Ht 182.8 cm; Wt 57.0 kg
[~2021-04-23 11:17] MED LIST changes: +CIPR-225 PO; +TRAM50TA3 PO
[2021-04-23] MEDS ORDERED: OXYC10TA7 PO (11:29)
[2021-04-23] MEDS ORDERED: TRM50T PO (11:29)
[2021-04-23] MEDS ORDERED: BACL10TA PO (11:29)
[2021-04-23] MEDS ORDERED: TMSL.4C PO (11:29)
[2021-04-23] MEDS ORDERED: LACTULOSE SYRUP 10GM/15ML (ENULOSE) 30ML UDC PO PRN (12:30)
[2021-04-23] MEDS ORDERED: ALPRAZolam 0.25 MG (XANAX) TAB PO PRN (12:30)
[2021-04-23] MEDS ORDERED: ONDANSETRON 4 MG (ZOFRAN) ORAL DISSOLVE TAB PO PRN (12:30)
[2021-04-23] MEDS ORDERED: FLEET ENEMA ADULT 1 EA BTL PR PRN (12:30)
[2021-04-23] MEDS ORDERED: diphenhydrAMINE 25 MG TAB (BENADRYL) PO PRN (12:30)
[2021-04-23] MEDS ORDERED: DOCUSATE SODIUM 100 MG (COLACE) CAP PO PRN (12:30)
[2021-04-23] MEDS ORDERED: guaiFENesin/CODEINE (ROBITUSSIN AC) 10ML UDC PO PRN (12:30)
[2021-04-23] MEDS ORDERED: CALCIUM CARBONATE 500 MG (TUMS) TAB.CHEW PO PRN (12:30)
[2021-04-23] MEDS ORDERED: BISACODYL 10 MG SUPP (DULCOLAX) PR PRN (12:30)
[2021-04-23] MEDS ORDERED: MELATONIN 3 MG TABLET PO PRN (12:30)
[2021-04-23] MEDS ORDERED: LOPERAMIDE 2 MG (IMODIUM) TABLET PO PRN (12:30)
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
[2021-04-23 13:44] VITALS: BP 165/82
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
[2021-04-23] MEDS ORDERED: FLU QUAD HIGH DOSE 240 MCG/0.7 ML 2021-22 (FLUZONE) IM ONE (14:45)
[2021-04-23] MEDS ORDERED: BACLOFEN 10 MG (LIORESAL) TAB PO PRN (19:00)
[2021-04-23] MEDS: polyethylene glycoL POWDER 17 GM (MIRALAX) PACK PO SCH (19:37)
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
[2021-04-23 20:24] VITALS: BP 153/72
[2021-04-23] MEDS: SENNA W/DOCUSATE (SENOKOT S) TABLET PO SCH (20:28)
[2021-04-23] MEDS: DOCUSATE SODIUM 100 MG (COLACE) CAP PO SCH (20:28)
[2021-04-24 07:54] VITALS: BP 109/58
[2021-04-24] MEDS: DOCUSATE SODIUM 100 MG (COLACE) CAP PO SCH ×2 (09:00→19:21)
[2021-04-24] MEDS: SENNA W/DOCUSATE (SENOKOT S) TABLET PO SCH ×2 (09:00→19:27)
[2021-04-24] MEDS: polyethylene glycoL POWDER 17 GM (MIRALAX) PACK PO SCH ×2 (09:00→19:21)
[2021-04-24] MEDS: TAMSULOSIN 0.4 MG (FLOMAX) CAP PO SCH (09:02)
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
[2021-04-24 09:51] LABS: BASOPHILS % (AUTO) 1 % (0-10); EOSINOPHILS # (AUTO) 0.2 10^3/uL (0.0-0.3); EOSINOPHILS % (AUTO) 3 % (0-10); HEMATOCRIT 32 % (40-54); HEMOGLOBIN 10.3 g/dL (13.3-17.7); LYMPHOCYTES # (AUTO) 0.8 10^3/uL (1.0-4.0); LYMPHOCYTES % (AUTO) 11 % (12-44); MEAN CORPUSCULAR HEMOGLOBIN 28 pg (25-34); MEAN CORPUSCULAR HGB CONC 32 g/dL (32-36); MEAN CORPUSCULAR VOLUME 85 fL (80-99); MEAN PLATELET VOLUME 12.6 fL (9.0-12.2); MONOCYTES # (AUTO) 0.5 10^3/uL (0.0-1.0); MONOCYTES % (AUTO) 8 % (0-12); NEUTROPHILS # (AUTO) 5.3 10^3/uL (1.8-7.8); NEUTROPHILS % (AUTO) 77 % (42-75); PLATELET COUNT 201 10^3/uL (130-400); WHITE BLOOD COUNT 6.8 10^3/uL (4.3-11.0)
[2021-04-24 09:59] LABS: ALBUMIN 3.1 GM/DL (3.2-4.5); BILIRUBIN,TOTAL 0.5 MG/DL (0.1-1.0); CALCIUM 9.4 MG/DL (8.5-10.1); CREATININE SERUM 0.69 MG/DL (0.60-1.30); POTASSIUM 3.9 MMOL/L (3.6-5.0); TOTAL PROTEIN 6.6 GM/DL (6.4-8.2)
--- NOTE | 2021-04-24 10:40 | ST Cognitive Linguistic Eval ---
Speech Evaluation-General Medical Diagnosis Lumbar stenosis with neurogenic claudication; T10-L3 fusion Onset Date: Apr 18, 2021 Therapy Diagnosis Therapy Diagnosis: Cognitive-communication Referral Referring Physician: Dr. Ledesma Medical History Reviewed History: Yes Social History Current Living Status: Alone Speech PLF-Current Status Prior Level of Function Patient lives alone where he is independent for all of his daily needs. Subjective Patient was pleasant and cooperative with the cognitive assessment. Language Eval: Auditory Comprehends Simple Yes/No Ques: Functional Indent/Objects Multiple [place]: Functional Ident/Pics in Multiple [place]: Functional Follows 1-Step Commands: Functional Follows Complex Directions: Functional Follows General Conversations: Functional Objective Cognitive Domain Attention: WNL Memory: WNL Problem Solving: Functional Executive Functions: WNL Visuospatial Skills: WNL Composite Severity Rating: WNL Objective Formal/Standardized Tests [facility] Mental Status ([facility]) Results 27/30, within normal range of function Oral Motor/Speech Production Within Normal Limits Impression Patient is a pleasant 76 y/o male who was admitted to the ARU due to spinal surgery. The patient was admitted in December due to his first spinal surgery. This admission is due to a revision of spinal surgery. The patient was given the [facility] with a score of 27/30 obtained. This score is within normal range of function and does not indicate a need for further speech therapy services. Speech Patient Assess Expression of Ideas/Wants: Expression (4) Understanding Verbal Content: Understands (4) Brief Interview-Mental Status: Yes Repetition of Three Words: Three (3) Temporal Orientation: Year: Correct (3) Temporal Orientation: Month: Accurate within 5 days(2) Temporal Orientation: Day: Correct (1) Recall : Wear to say "Sock": Yes, no cue required (2) Recall : Color: Yes, after cueing (1) Recall : Bed: Yes,after cueing (1) Memory/Recall Ability: Current season, Location of own room, That he or she is in a hsp/hsp unit Speech-Plan Patient/Family Goals Patient/Family Goals: Patient plans on returning to his home where he will resume home health services. Treatment Plan Speech Therapy Treatment Plan: Discontinue ST Treatment Duration: Apr 24, 2021 Frequency: 1 time per week Estimated Hrs Per Day: .5 hour per day Rehab Potential: Fair Barriers to Learning: Patient's recent surgery revision. Pt/Family Agrees to Plan: Yes Safety Risks/Education Teaching Recipient: Patient Teaching Methods: Discussion Response to Teaching: Verbalize Understanding Education Topics Provided: Safety within his room, communication of wants/needs Time Speech Therapy Time In: 09:30 Speech Therapy Time Out: 10:00 Total Billed Time: 30 Billed Treatment Time 1, FRANCHESKA MARK [address] Apr 24, 2021 10:40
--- NOTE | 2021-04-24 11:14 | Physical Therapy Daily Note ---
PT Daily Note-Current Subjective Pt in recliner upon arrival and agrees to tx. Pt states pain at 4/10 in lower back Pain Numeric Pain Scale: 4 Location: Lower Location Body Site: Back Mental Status Patient Orientation: Person, Place, Time, Situation Transfers SCALE: Activities may be completed with or without assistive devices. 2-Oxfzywwomj-pepyhdk completes the activity by him/herself with no assistance from a helper. 5-Set-up or Clean-up Assistance-helper sets up or cleans up; patient completes activity. [place] assists only prior to or following the activity. 4-Supervision or Touching Assistance-helper provides verbal cues and/or touching/steadying and/or contact guard assistance as patient completes activity. Assistance may be provided throughout the activity or intermittently. 3-Partial/Moderate Assistance-helper does LESS THAN HALF the effort. [place] lifts, holds or supports trunk or limbs, but provides less than half the effort. 2-Substantial/Maximal Assistance-helper does MORE THAN HALF the effort. [place] lifts or holds trunk or limbs and provides more than half the effort. 0-Agnfodqda-ybdjlq does ALL the effort. Patient does none of the effort to complete the activity. Or, the assistance of 2 or more helpers is required for the patient to complete the activity. If activity was not attempted, code reason: 7-Patient Refused. 9-Not Applicable-not attempted and the patient did not perform the activity before the current illness, exacerbation or injury. 10-Not Attempted due to Environmental Limitations-(lack of equipment, weather restraints, etc.). 88-Not Attempted due to Medical Conditions or Safety Concerns. Sit to Lying (QC): 4 Lying to Sitting/Side of Bed(Q: 4 Sit to Stand (QC): 3 Chair/Vvt-ya-Qdxgt Xfer(QC): 3 Bed mobility CGA, VC to keep precautions. Sit to stand and transfers Min/ModA dependent on pt fatigue. Gait Training Does the Patient Walk?: Yes Distance: 100'x 6' x3 Walk 10 feet (QC): 3 Walk 50 ft with 2 Turns(QC): 3 Gait Persons Needed: 1 Gait Assistive Device: FWW Pt has extremely slow gait, tends to hyperextend R knee w/ stance, and shuffling gait. Pt states he has done this for years. Pt exhibits Trendelenburg gait on R side Wheelchair Training Does the Pt Use a Wheelchair?: Yes Wheel 50 ft with 2 turns (QC): 4 Wheel 150 ft (QC): 4 Type of Wheelchair: Manual Pt propels WC 150' going backwards, VC for obstacle avoidance. 50' going fo rward, pt says it is more difficult but pt able to complete with a rest break. Exercises Seated Therapy Exercises: Biceps, Sit to stand, Long arc quads, Hip flexion, Tricep Seated Reps: 10 Treatments 10:00-10:30: Pt SPT to bed from recliner to don pants, then TF to WC ModA. Pt request to brush teeth at this time. Pt able to do so SBA. Pt then propels WC 200' on ARU requiring frequent rest breaks then enters therapy gym. Co-treat 10:30-11:15: Co-treat d/t pt poor mobility, transfers, weakness, safety, and decrease fall risk. OT focused on UE strengthening/positioning and bathing. PT focused on mobility, transfers, and LE strengthening/positioning. Pt sit to stand and amb in // bars x2 w/ ModA and WC follow. VC to scoot to edge of chair and for UE/LE positioning. Pt completes seated UE and LE ex. Pt sit to stand and amb another 6' in // bars. Pt then propelled into hallway and amb 100' w/ FWW and [place] for steadiness with a WC follow. Pt then sits in WC and enters bathroom in room and begins sponge bath. PT exits tx at this time. Pt with OT and all needs met. Assessment Current Status: Good Progress Pt increasing endurance, strength, and mobility. Pt motivated to improve and go home PT Short Term Goals Short Term Goals Time Frame: Apr 30, 2021 Roll Left & Right: 6 Sit to lyin ([place]) Lying to sitting on side of be: 3 (Trent) Sit to stand: 3 (Trent) Chair/qno-hx-gsiny transfer: 3 (Trent) Walk 10 feet: 3 (Trent) PT Group Home Goals Youtuber Goals PT Group Home Goals Time Frame: May 14, 2021 Roll Left & Right (QC): 6 Sit to Lying (QC): 4 Lying-Sitting on Side/Bed(QC): 4 Sit to Stand (QC): 4 Chair/Omn-mf-Jnjjz Xfer(QC): 4 Toilet Transfer (QC): 4 Car Transfer (QC): 4 Does the Patient Walk: Yes Walk 10 feet (QC): 4 Walk 50ft with 2 Turns (QC): 4 Walk 150 ft (QC): 88 Walking 10ft on Uneven Surface: 3 1 Step (curb) (QC): 4 4 Steps (QC): 88 12 Steps (QC): 88 Picking up an Object (QC): 88 Wheel 50 feet with 2 turns (QC: 9 Wheel 150 feet: 9 PT Plan Treatment/Plan Treatment Plan: Continue Plan of Care Treatment Plan: Bed Mobility, Education, Functional Activity Marc, Functional Strength, Group Therapy, Gait, Safety, Therapeutic Exercise, Transfers Treatment Duration: May 14, 2021 Frequency: At least 5 of 7 days/Wk (IRF) Estimated Hrs Per Day: 1.5 hours per day Patient and/or Family Agrees t: Yes Time/GCodes Time In: 1000 Time Out: 1115 Total Billed Treatment Time: 75 Total Billed Treatment 1, EX, FA x2, GT x2 ADAM PINTO COMMUNITY SERVICE TECHNICIAN Apr 24, 2021 11:14
--- NOTE | 2021-04-24 12:53 | Occupational Ther Daily Note ---
OT Current Status-Daily Note Subjective Pt sitting in w/c and alert. Pt reports no pain. Pt agrees to therapy. Mental Status/Objective Patient Orientation: Person, Place, Time, Situation Attachments: Other-See Comments (UE bilateral prosthetics, sacral lumbar brace) ADL-Treatment PT/OT cotreat with pt (10:30-11:15) 2 clinicians required for skilled treatment to decrease fall risk, increase mobility, and activity tolerance for ADLs. PT focused on ambulation, transfers, and BLE strengthening while OT focused on functional mobility and ADLs. See PT notes for mobility. Pt engaged in therapeutic exercise of bicep curls against gravity 10 reps x 2 sets,horizontal shoulder abduction against gravity 10 reps x 2 sets, and internal /external rotation against gravity 10 reps x 2 sets. Patient then requested to take a shower in his room. Pt IV and incision site were covered before shower. After showering, pt was left in his bed with with his call button and phone within reach. All needs were met in room. Therapy Code Descriptions/Definitions Functional [place] Measure: 0=Not Assessed/NA 4=Minimal Assistance 1=Total Assistance 5=Supervision or Setup 2=Maximal Assistance 6=Modified [place] 3=Moderate Assistance 7=Complete IndependenceSCALE: Activities may be completed with or without assistive devices. 0-Cmngqfrcey-hywcdop completes the activity by him/herself with no assistance from a helper. 5-Set-up or Clean-up Assistance-helper sets up or cleans up; patient completes activity. [place] assists only prior to or following the activity. 4-Supervision or Touching Assistance-helper provides verbal cues and/or touching/steadying and/or contact guard assistance as patient completes activity. Assistance may be provided throughout the activity or intermittently. 3-Partial/Moderate Assistance-helper does LESS THAN HALF the effort. [place] lifts, holds or supports trunk or limbs, but provides less than half the effort. 2-Substantial/Maximal Assistance-helper does MORE THAN HALF the effort. [place] lifts or holds trunk or limbs and provides more than half the effort. 5-Fiyxqwbni-ixtzak does ALL the effort. Patient does none of the effort to complete the activity. Or, the assistance of 2 or more helpers is required for the patient to complete the activity. If activity was not attempted, code reason: 7-Patient Refused. 9-Not Applicable-not attempted and the patient did not perform the activity before the current illness, exacerbation or injury. 10-Not Attempted due to Environmental Limitations-(lack of equipment, weather restraints, etc.). 88-Not Attempted due to Medical Conditions or Safety Concerns. Oral Hygiene (QC): 5 (Per PT pt is set up.) Bathing Location: Chest, Abdomen Shower/Bathe Self (QC): 2 (Max A with shower sitting on bedside commode. Pt able to do chest and abdomen, assist with rest of areas.) Upper Body Dressing (QC): 2 (Max A in donning prosthesis and sacral lumbar brace. Pt Min A in donning shirt) Lower Body Dressing (QC): 2 (Max A in LB dressing) Toileting Hygiene (QC): 2 (Per clinical judgment pt will require Max A for completion of toilet hygiene) Toilet Transfer (QC): 3 (Mod A) OT Short Term Goals Short Term Goals Time Frame: May 07, 2021 Eatin Oral hygiene: 6 Toileting hygiene: 3 Shower/bathe self: 3 Upper body dressin Lower body dressin Putting on/taking off footwear: 3 OT Snf Goals Reliability Specialist Goals Time Frame: May 17, 2021 Eating (QC): 6 Oral Hygiene (QC): 6 Toileting Hygiene (QC): 3 (Assist only with allie care due to not having bidet. Pt indep with clothing management. ) Shower/Bathe Self (QC): 4 Upper Body Dressing (QC): 5 Lower Body Dressing (QC): 5 On/Off Footwear (QC): 5 1=Demonstrate adherence to instructed precautions during ADL tasks. 2=Patient will verbalize/demonstrate understanding of assistive devices/modifications for ADL. 3=Patient will improve strength/tolerance for activity to enable patient to perform ADL's. OT Education/Plan Problem List/Assessment Assessment: Impaired Funct Balance, Impaired Self-Care Skills, Restricted Funct UE ROM Discharge Recommendations Plan/Recommendations: Continue POC Treatment Plan/Plan of Care Patient would benefit from OT for education, treatment and training to promote independence in ADL's, mobility, safety and/or upper extremity function for ADL's. Plan of Care: ADL Retraining, Functional Mobility, Group Exercise/Act as Ind, Orthotic Fitting/Training, UE Funct Exercise/Act, W/C Management Training Treatment Duration: May 17, 2021 Frequency: At least 5 of 7 days/Wk (IRF) Estimated Hrs Per Day: 1.5 hours per day Agreement: Yes Rehab Potential: Fair Time/GCodes Start Time: 10:30 Stop Time: 12:00 Total Time Billed (hr/min): 90 Billed Treatment Time 1 Visit-FA 2 (30 min) ADL 4 (60 min) Co-treat with PT (10:30-11:15) Individual 11:15-12:00 LONA ANDREWS Apr 24, 2021 12:53
[2021-04-24] MEDS ORDERED: NAPR-1033 PO (15:21)
[2021-04-24 19:57] VITALS: BP 105/60
[2021-04-25 08:00] VITALS: BP 99/63
[2021-04-25] MEDS: TAMSULOSIN 0.4 MG (FLOMAX) CAP PO SCH (08:02)
[2021-04-25] MEDS: DOCUSATE SODIUM 100 MG (COLACE) CAP PO SCH ×2 (08:24→19:35)
[2021-04-25] MEDS: SENNA W/DOCUSATE (SENOKOT S) TABLET PO SCH ×2 (08:24→19:35)
[2021-04-25] MEDS: polyethylene glycoL POWDER 17 GM (MIRALAX) PACK PO SCH ×2 (08:24→19:35)
--- NOTE | 2021-04-25 08:55 | Physical Therapy Daily Note ---
PT Daily Note-Current Subjective Patient in recliner pre tx agrees to PT, has 8/10 pain in back, nurse gives pain meds. Will be co-treating with OT due to poor patient mobility, strength, endurance, coordinate UE and LE with activity, safety and reduce risk of fall. Appearance Patient in recliner post tx with nurse call, phone, tray, all needs met. Mental Status Patient Orientation: Person, Place, Situation Transfers SCALE: Activities may be completed with or without assistive devices. 3-Vzttswdxlt-cdndzdl completes the activity by him/herself with no assistance from a helper. 5-Set-up or Clean-up Assistance-helper sets up or cleans up; patient completes activity. [place] assists only prior to or following the activity. 4-Supervision or Touching Assistance-helper provides verbal cues and/or touching/steadying and/or contact guard assistance as patient completes activity. Assistance may be provided throughout the activity or intermittently. 3-Partial/Moderate Assistance-helper does LESS THAN HALF the effort. [place] lifts, holds or supports trunk or limbs, but provides less than half the effort. 2-Substantial/Maximal Assistance-helper does MORE THAN HALF the effort. [place] lifts or holds trunk or limbs and provides more than half the effort. 1-Wiqybxiya-mjrzvy does ALL the effort. Patient does none of the effort to complete the activity. Or, the assistance of 2 or more helpers is required for the patient to complete the activity. If activity was not attempted, code reason: 7-Patient Refused. 9-Not Applicable-not attempted and the patient did not perform the activity before the current illness, exacerbation or injury. 10-Not Attempted due to Environmental Limitations-(lack of equipment, weather restraints, etc.). 88-Not Attempted due to Medical Conditions or Safety Concerns. Sit to Stand (QC): 3 Chair/Jiy-fh-Pdfub Xfer(QC): 4 Patient ambulates into the restroom for ADL's and then ambulates to the therapy gym when done. Patient needs cues for safety and positioning during transfers and sit <-> stand. Gait Training Distance: 10', 120' Walk 10 feet (QC): 4 Walk 50 ft with 2 Turns(QC): 4 Gait Assistive Device: FWW patient ambulates slowly, has a right trendelenburg gait and left knee hyperextends some. Exercises Sit to stand about 7-8 times, stands and works a theraband up and down on his waist and legs to simulate getting pants down/up and working on balance and leg strength. Treatments PT worked on bed mobility and transfers, ambulation, standing activity, safety and positioning during ADL's, OT worked on ADL's, dressing simulation, UE positioning and safety during activity. Assessment Current Status: Fair Progress improving endurance, needs to work on leg strength PT Short Term Goals Short Term Goals Time Frame: Apr 30, 2021 Roll Left & Right: 6 Sit to lyin (Trent) Lying to sitting on side of be: 3 (Trent) Sit to stand: 3 (Trent) Chair/obc-jh-qwdrm transfer: 3 (Trent) Walk 10 feet: 3 (Trent) PT Custodial Goals Catcher Helper Goals PT Catcher Helper Goals Time Frame: May 14, 2021 Roll Left & Right (QC): 6 Sit to Lying (QC): 4 Lying-Sitting on Side/Bed(QC): 4 Sit to Stand (QC): 4 Chair/Tma-wm-Vyybk Xfer(QC): 4 Toilet Transfer (QC): 4 Car Transfer (QC): 4 Does the Patient Walk: Yes Walk 10 feet (QC): 4 Walk 50ft with 2 Turns (QC): 4 Walk 150 ft (QC): 88 Walking 10ft on Uneven Surface: 3 1 Step (curb) (QC): 4 4 Steps (QC): 88 12 Steps (QC): 88 Picking up an Object (QC): 88 Wheel 50 feet with 2 turns (QC: 9 Wheel 150 feet: 9 PT Plan Problem List Problem List: Activity Tolerance, Functional Strength, Safety, Balance, Gait, Transfer, Bed Mobility, ROM Treatment/Plan Treatment Plan: Continue Plan of Care Treatment Plan: Bed Mobility, Education, Functional Activity Marc, Functional Strength, Group Therapy, Gait, Safety, Therapeutic Exercise, Transfers Treatment Duration: May 14, 2021 Frequency: At least 5 of 7 days/Wk (IRF) Estimated Hrs Per Day: 1.5 hours per day Patient and/or Family Agrees t: Yes Safety Risks/Education Patient Education: Gait Training, Transfer Techniques, Reviewed Precautions, Correct Positioning, Safety Issues Teaching Recipient: Patient Teaching Methods: Demonstration, Discussion Response to Teaching: Reinforcement Needed Time/GCodes Time In: 0800 Time Out: 0900 Total Billed Treatment Time: 60 Total Billed Treatment 1 visit EX 15' FA 45' RORY FRANCOIS PT Apr 25, 2021 08:55
--- NOTE | 2021-04-25 09:45 | Occupational Ther Daily Note ---
OT Current Status-Daily Note Subjective Pt sitting in chair and alert. Pt agrees to therapy. Pt reported 7/10 pain to nursing staff, nursing administered pain medication. Mental Status/Objective Patient Orientation: Person, Place, Time, Situation Attachments: Other-See Comments (Bilateral forarm orthosis) ADL-Treatment PT/OT cotreated with pt (8:00-9:00). 2 clinicians required for skilled treatment to decrease risk of fall, increase mobility and increase activity tolerance for ADLs. PT focused on ambulation, transfers and lower body strengthening, OT focused on functional mobility, ADLS, and activity tolerance. Patient ambulated from chair to bathroom sink using FWW with CGA. See PT notes for progress on transfers. Completed oral care, face washing, and grooming tasks with set up. After session pt was left in chair with call light/phone within reach. All needs were met. Therapy Code Descriptions/Definitions Functional [place] Measure: 0=Not Assessed/NA 4=Minimal Assistance 1=Total Assistance 5=Supervision or Setup 2=Maximal Assistance 6=Modified [place] 3=Moderate Assistance 7=Complete IndependenceSCALE: Activities may be completed with or without assistive devices. 5-Ijyikyrooa-xxddfqg completes the activity by him/herself with no assistance from a helper. 5-Set-up or Clean-up Assistance-helper sets up or cleans up; patient completes activity. [place] assists only prior to or following the activity. 4-Supervision or Touching Assistance-helper provides verbal cues and/or touching/steadying and/or contact guard assistance as patient completes activity. Assistance may be provided throughout the activity or intermittently. 3-Partial/Moderate Assistance-helper does LESS THAN HALF the effort. [place] lifts, holds or supports trunk or limbs, but provides less than half the effort. 2-Substantial/Maximal Assistance-helper does MORE THAN HALF the effort. [place] lifts or holds trunk or limbs and provides more than half the effort. 9-Xgbjfmwum-qfwiea does ALL the effort. Patient does none of the effort to complete the activity. Or, the assistance of 2 or more helpers is required for the patient to complete the activity. If activity was not attempted, code reason: 7-Patient Refused. 9-Not Applicable-not attempted and the patient did not perform the activity before the current illness, exacerbation or injury. 10-Not Attempted due to Environmental Limitations-(lack of equipment, weather restraints, etc.). 88-Not Attempted due to Medical Conditions or Safety Concerns. Oral Hygiene (QC): 5 (Pt completed with set up) Upper Body Dressing (QC): 3 (Min A to lift over head don/doff forearm orthosis) On/Off Footwear: 2 (Problem solving use of sock aide and donning sock onto aide requires max A and verbal cues) Other Treatment Pt able to ambulate with PT from room to therapy gym, see PT notes for distance. Pt then sat on mat table to work on sit to stands and simulating hiking pants up/down over hips. Pt able to stand and complete with min A with positioning and stabilizing due to dynamic balance task. Education OT Patient Education: Modified ADL techniques, Use of adapted equipment (Using sock aid to don socks on LE) Teaching Recipient: Patient Teaching Methods: Demonstration, Discussion Response to Teaching: Verbalize Understanding, Return Demonstration OT Short Term Goals Short Term Goals Time Frame: May 07, 2021 Eatin Oral hygiene: 6 Toileting hygiene: 3 Shower/bathe self: 3 Upper body dressin Lower body dressin Putting on/taking off footwear: 3 OT Service Advisor Goals Service Advisor Goals Time Frame: May 17, 2021 Eating (QC): 6 Oral Hygiene (QC): 6 Toileting Hygiene (QC): 3 (Assist only with allie care due to not having bidet. Pt indep with clothing management. ) Shower/Bathe Self (QC): 4 Upper Body Dressing (QC): 5 Lower Body Dressing (QC): 5 On/Off Footwear (QC): 5 1=Demonstrate adherence to instructed precautions during ADL tasks. 2=Patient will verbalize/demonstrate understanding of assistive devices/modifications for ADL. 3=Patient will improve strength/tolerance for activity to enable patient to perform ADL's. OT Education/Plan Problem List/Assessment Assessment: Decreased Activ Tolerance, Decreased UE Strength, Impaired Funct Balance, Impaired Self-Care Skills, Restricted Funct UE ROM Discharge Recommendations Plan/Recommendations: Continue POC Treatment Plan/Plan of Care Patient would benefit from OT for education, treatment and training to promote independence in ADL's, mobility, safety and/or upper extremity function for ADL's. Plan of Care: ADL Retraining, Functional Mobility, Group Exercise/Act as Ind, Orthotic Fitting/Training, UE Funct Exercise/Act, W/C Management Training Treatment Duration: May 17, 2021 Frequency: At least 5 of 7 days/Wk (IRF) Estimated Hrs Per Day: 1.5 hours per day Agreement: Yes Rehab Potential: Fair Time/GCodes Start Time: 07:30 Stop Time: 09:00 Total Time Billed (hr/min): 90 Billed Treatment Time 1 Visit- FA 3 (45 min) ADL 3 (45 min). Co-treat with PT (800-900) Individual treatment (730-800) LONA ANDREWS Apr 25, 2021 09:45
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
--- NOTE | 2021-04-25 14:30 | Physical Therapy Daily Note ---
PT Daily Note-Current Subjective Patient in bed pre tx, agrees to PT, has unrated back pain. Appearance Patient in bed post tx with nurse call, phone, tray, all needs met. Mental Status Patient Orientation: Person, Place, Situation back brace, prosthetic arms Transfers SCALE: Activities may be completed with or without assistive devices. 4-Cophbrpzfj-zrkufhn completes the activity by him/herself with no assistance from a helper. 5-Set-up or Clean-up Assistance-helper sets up or cleans up; patient completes activity. [place] assists only prior to or following the activity. 4-Supervision or Touching Assistance-helper provides verbal cues and/or touching/steadying and/or contact guard assistance as patient completes activity. Assistance may be provided throughout the activity or intermittently. 3-Partial/Moderate Assistance-helper does LESS THAN HALF the effort. [place] lifts, holds or supports trunk or limbs, but provides less than half the effort. 2-Substantial/Maximal Assistance-helper does MORE THAN HALF the effort. [place] lifts or holds trunk or limbs and provides more than half the effort. 6-Vjrevdjmr-ljanbl does ALL the effort. Patient does none of the effort to complete the activity. Or, the assistance of 2 or more helpers is required for the patient to complete the activity. If activity was not attempted, code reason: 7-Patient Refused. 9-Not Applicable-not attempted and the patient did not perform the activity before the current illness, exacerbation or injury. 10-Not Attempted due to Environmental Limitations-(lack of equipment, weather restraints, etc.). 88-Not Attempted due to Medical Conditions or Safety Concerns. Roll Left & Right (QC): 4 Sit to Lying (QC): 3 Lying to Sitting/Side of Bed(Q: 4 Sit to Stand (QC): 3 (from lower surfaces) Chair/Yql-ou-Wyguv Xfer(QC): 4 Gait Training Distance: 120'x2 Walk 10 feet (QC): 4 Walk 50 ft with 2 Turns(QC): 4 Gait Persons Needed: 1 Gait Assistive Device: FWW slow, antalgic, right trendelenburg gait, left knee hyperextension Exercises Seated Therapy Exercises: Ankle pumps, Long arc quads, Hip flexion Seated Reps: 20 Treatments bed mobility and transfers, ambulation, LE ROM Assessment Current Status: Fair Progress improving endurance, LE ROM is very tiring though and needed several rest breaks PT Short Term Goals Short Term Goals Time Frame: Apr 30, 2021 Roll Left & Right: 6 Sit to lyin ([place]) Lying to sitting on side of be: 3 ([place]) Sit to stand: 3 ([place]) Chair/vno-ow-qvsbc transfer: 3 ([place]) Walk 10 feet: 3 ([place]rent) PT Senior Living Goals Senior Living Goals PT Oil Separator Goals Time Frame: May 14, 2021 Roll Left & Right (QC): 6 Sit to Lying (QC): 4 Lying-Sitting on Side/Bed(QC): 4 Sit to Stand (QC): 4 Chair/Mlq-td-Auixc Xfer(QC): 4 Toilet Transfer (QC): 4 Car Transfer (QC): 4 Does the Patient Walk: Yes Walk 10 feet (QC): 4 Walk 50ft with 2 Turns (QC): 4 Walk 150 ft (QC): 88 Walking 10ft on Uneven Surface: 3 1 Step (curb) (QC): 4 4 Steps (QC): 88 12 Steps (QC): 88 Picking up an Object (QC): 88 Wheel 50 feet with 2 turns (QC: 9 Wheel 150 feet: 9 PT Plan Problem List Problem List: Activity Tolerance, Functional Strength, Safety, Balance, Gait, Transfer, Bed Mobility, ROM Treatment/Plan Treatment Plan: Continue Plan of Care Treatment Plan: Bed Mobility, Education, Functional Activity Marc, Functional Strength, Group Therapy, Gait, Safety, Therapeutic Exercise, Transfers Treatment Duration: May 14, 2021 Frequency: At least 5 of 7 days/Wk (IRF) Estimated Hrs Per Day: 1.5 hours per day Patient and/or Family Agrees t: Yes Safety Risks/Education Patient Education: Gait Training, Transfer Techniques, Correct Positioning, Reviewed Don/Doff Brace, Safety Issues Teaching Recipient: Patient Teaching Methods: Demonstration, Discussion Response to Teaching: Reinforcement Needed Time/GCodes Time In: 1400 Time Out: 1430 Total Billed Treatment Time: 30 Total Billed Treatment 1 visit EX 10' GT 20' RORY FRANCOIS PT Apr 25, 2021 14:30
[2021-04-25 19:48] VITALS: BP 96/51
[2021-04-25] MEDS: CATHETER FLUSH 10 ML SYR IV SCH (20:15)
[2021-04-26] MEDS: CATHETER FLUSH 10 ML SYR IV SCH ×3 (04:19→20:00)
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
--- NOTE | 2021-04-26 07:21 | Occupational Ther Daily Note ---
OT Current Status-Daily Note Subjective Patient sitting in chair, alert, and eating breakfast. Patient agrees to therapy. Pt reports no pain. Mental Status/Objective Patient Orientation: Person, Place, Time, Situation Attachments: IV (midline), Other-See Comments (UE forearm orthosis) ADL-Treatment Patient agrees to shower. Surgical incision and IV were covered. Due to time constraints, assist given for lower body dressing and footwear. After session, pt left in w/c in bathroom with nrsg present. Call light within reach. All needs were met. Therapy Code Descriptions/Definitions Functional [place] Measure: 0=Not Assessed/NA 4=Minimal Assistance 1=Total Assistance 5=Supervision or Setup 2=Maximal Assistance 6=Modified [place] 3=Moderate Assistance 7=Complete IndependenceSCALE: Activities may be completed with or without assistive devices. 4-Mcpuljeytc-kkotjja completes the activity by him/herself with no assistance from a helper. 5-Set-up or Clean-up Assistance-helper sets up or cleans up; patient completes activity. [place] assists only prior to or following the activity. 4-Supervision or Touching Assistance-helper provides verbal cues and/or touching/steadying and/or contact guard assistance as patient completes activity. Assistance may be provided throughout the activity or intermittently. 3-Partial/Moderate Assistance-helper does LESS THAN HALF the effort. [place] lifts, holds or supports trunk or limbs, but provides less than half the effort. 2-Substantial/Maximal Assistance-helper does MORE THAN HALF the effort. [place] lifts or holds trunk or limbs and provides more than half the effort. 2-Cqkovqdks-zijoab does ALL the effort. Patient does none of the effort to complete the activity. Or, the assistance of 2 or more helpers is required for the patient to complete the activity. If activity was not attempted, code reason: 7-Patient Refused. 9-Not Applicable-not attempted and the patient did not perform the activity before the current illness, exacerbation or injury. 10-Not Attempted due to Environmental Limitations-(lack of equipment, weather restraints, etc.). 88-Not Attempted due to Medical Conditions or Safety Concerns. Eating (QC): 6 (Pt setup Independently, uses regular utensils to feed self) Bathing Location: L Arm, R Arm, L Upper Leg, R Upper Leg, Chest, Abdomen Shower/Bathe Self (QC): 3 (Mod A with shower sitting on bedside commode. Pt able to do chest, upper legs, arms, and abdomen, assist with rest of areas. ) Upper Body Dressing (QC): 3 (Pt able to kam shirt and orthosis CGA) Toilet Transfer (QC): 3 (Mod A) OT Short Term Goals Short Term Goals Time Frame: May 07, 2021 Eatin Oral hygiene: 6 Toileting hygiene: 3 Shower/bathe self: 3 Upper body dressin Lower body dressin Putting on/taking off footwear: 3 OT Retirement Goals Retirement Goals Time Frame: May 17, 2021 Eating (QC): 6 Oral Hygiene (QC): 6 Toileting Hygiene (QC): 3 (Assist only with allie care due to not having bidet. Pt indep with clothing management. ) Shower/Bathe Self (QC): 4 Upper Body Dressing (QC): 5 Lower Body Dressing (QC): 5 On/Off Footwear (QC): 5 1=Demonstrate adherence to instructed precautions during ADL tasks. 2=Patient will verbalize/demonstrate understanding of assistive devices/modifications for ADL. 3=Patient will improve strength/tolerance for activity to enable patient to perform ADL's. OT Education/Plan Problem List/Assessment Assessment: Decreased Activ Tolerance, Impaired Funct Balance, Impaired Self- Care Skills, Restricted Funct UE ROM Discharge Recommendations Plan/Recommendations: Continue POC Treatment Plan/Plan of Care Patient would benefit from OT for education, treatment and training to promote independence in ADL's, mobility, safety and/or upper extremity function for ADL's. Plan of Care: ADL Retraining, Functional Mobility, Group Exercise/Act as Ind, Orthotic Fitting/Training, UE Funct Exercise/Act, W/C Management Training Treatment Duration: May 17, 2021 Frequency: At least 5 of 7 days/Wk (IRF) Estimated Hrs Per Day: 1.5 hours per day Agreement: Yes Rehab Potential: Fair Time/GCodes Start Time: 07:30 Stop Time: 08:30 Total Time Billed (hr/min): 60 Billed Treatment Time 1 Visit- ADL 4 (60 min) [id number] LONA ANDREWS Apr 26, 2021 07:21
[2021-04-26 07:35] VITALS: BP 108/55
[2021-04-26] MEDS: polyethylene glycoL POWDER 17 GM (MIRALAX) PACK PO SCH ×2 (08:25→18:53)
[2021-04-26] MEDS: SENNA W/DOCUSATE (SENOKOT S) TABLET PO SCH ×2 (08:25→18:53)
[2021-04-26] MEDS: DOCUSATE SODIUM 100 MG (COLACE) CAP PO SCH ×2 (08:25→18:53)
[2021-04-26] MEDS: TAMSULOSIN 0.4 MG (FLOMAX) CAP PO SCH (08:33)
--- NOTE | 2021-04-26 11:51 | Physical Therapy Daily Note ---
PT Daily Note-Current Subjective Patient in recliner pre tx, agrees to PT, voices no complaints of pain. Appearance Patient in bed post tx with nurse call, phone, tray, all needs met. Mental Status Patient Orientation: Person, Place, Normal For Age back brace and prosthetic arms Transfers SCALE: Activities may be completed with or without assistive devices. 4-Mhivwxgrbx-moxhtxm completes the activity by him/herself with no assistance from a helper. 5-Set-up or Clean-up Assistance-helper sets up or cleans up; patient completes activity. [place] assists only prior to or following the activity. 4-Supervision or Touching Assistance-helper provides verbal cues and/or touching/steadying and/or contact guard assistance as patient completes activity. Assistance may be provided throughout the activity or intermittently. 3-Partial/Moderate Assistance-helper does LESS THAN HALF the effort. [place] lifts, holds or supports trunk or limbs, but provides less than half the effort. 2-Substantial/Maximal Assistance-helper does MORE THAN HALF the effort. [place] lifts or holds trunk or limbs and provides more than half the effort. 3-Nocxjhbzu-pilowa does ALL the effort. Patient does none of the effort to complete the activity. Or, the assistance of 2 or more helpers is required for the patient to complete the activity. If activity was not attempted, code reason: 7-Patient Refused. 9-Not Applicable-not attempted and the patient did not perform the activity before the current illness, exacerbation or injury. 10-Not Attempted due to Environmental Limitations-(lack of equipment, weather restraints, etc.). 88-Not Attempted due to Medical Conditions or Safety Concerns. Roll Left & Right (QC): 6 Sit to Lying (QC): 4 Sit to Stand (QC): 4 Chair/Mbo-ye-Xfgdl Xfer(QC): 4 Gait Training Distance: 120'x2 Walk 10 feet (QC): 4 Walk 50 ft with 2 Turns(QC): 4 Gait Persons Needed: 1 Gait Assistive Device: FWW slow ambulation, antalgic, trendelenburg gait with left knee hyperextension Exercises sit to stands from [facility] therapy table 3 sets of 5 NuStep Minutes: 15 NuStep Workload: 5 Treatments bed mobility and transfers, ambulation, functional strengthening Assessment Current Status: Fair Progress improving LE strength PT Short Term Goals Short Term Goals Time Frame: Apr 30, 2021 Roll Left & Right: 6 Sit to lyin ([place]) Lying to sitting on side of be: 3 ([place]) Sit to stand: 3 ([place]) Chair/khp-xs-ukycl transfer: 3 ([place]) Walk 10 feet: 3 ([place]) PT Analytical Data Scientist Goals Fdc Goals PT Fdc Goals Time Frame: May 14, 2021 Roll Left & Right (QC): 6 Sit to Lying (QC): 4 Lying-Sitting on Side/Bed(QC): 4 Sit to Stand (QC): 4 Chair/Lyq-lp-Xgbvj Xfer(QC): 4 Toilet Transfer (QC): 4 Car Transfer (QC): 4 Does the Patient Walk: Yes Walk 10 feet (QC): 4 Walk 50ft with 2 Turns (QC): 4 Walk 150 ft (QC): 88 Walking 10ft on Uneven Surface: 3 1 Step (curb) (QC): 4 4 Steps (QC): 88 12 Steps (QC): 88 Picking up an Object (QC): 88 Wheel 50 feet with 2 turns (QC: 9 Wheel 150 feet: 9 PT Plan Problem List Problem List: Activity Tolerance, Functional Strength, Safety, Balance, Gait, Transfer, Bed Mobility, ROM Treatment/Plan Treatment Plan: Continue Plan of Care Treatment Plan: Bed Mobility, Education, Functional Activity Marc, Functional Strength, Group Therapy, Gait, Safety, Therapeutic Exercise, Transfers Treatment Duration: May 14, 2021 Frequency: At least 5 of 7 days/Wk (IRF) Estimated Hrs Per Day: 1.5 hours per day Patient and/or Family Agrees t: Yes Safety Risks/Education Patient Education: Gait Training, Transfer Techniques, Correct Positioning, Safety Issues Teaching Recipient: Patient Teaching Methods: Demonstration, Discussion Response to Teaching: Reinforcement Needed Time/GCodes Time In: 1100 Time Out: 1200 Total Billed Treatment Time: 60 Total Billed Treatment 1 visit EX 30' FA 30' RORY FRANCOIS PT Apr 26, 2021 11:51
--- NOTE | 2021-04-26 14:41 | Therapy Group Daily Note ---
Therapy Daily Group Note Patient Education Topic Home Safety, Fall Prevention Exercises LE Seated Exercise, UE Exercise Session Ratio (pt:therapist): 4:1 Goal of Session: Education on ARU Expectations, Home Safety Strategies, UE/LE Strengthing Goal Met for this Session: Yes Pt Benefit of Group: Contributions to Others, F/U Use of Strategies @Home, Increased Functional Safety, Increased Functional Strength, Improved Cognition, Recognition of Peers, Socialization Other/Notes Pt ambulated with FWW to [facility] for OT/PT group. Group consisted of introductions (name, place living, childhood memory), socialization, B UE seated exercises, educational topics of fall prevention/risk, floor transfers and home safety. Pt introduced self appropriately and actively listened to peers. Pt able to complete B UE/LE seated exercises though required modifications due to medical issues. Pt acknowledged understanding of educational topics by verbalizing own strategies and focusing on speakers. After session, pt lying in bed with call light/phone in reach. All needs met in room. Start Time: 13:00 Stop Time: 14:15 Total Billed Treatment Time: 75 Total Billed Treatment 1-LONA LOPEZ Apr 26, 2021 14:41
[2021-04-26 19:57] VITALS: BP 90/51
[2021-04-27] MEDS: CATHETER FLUSH 10 ML SYR IV SCH ×3 (03:29→21:07)
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
[2021-04-27 08:51] VITALS: BP 92/54
[2021-04-27] MEDS: SENNA W/DOCUSATE (SENOKOT S) TABLET PO SCH ×2 (08:54→21:06)
[2021-04-27] MEDS: TAMSULOSIN 0.4 MG (FLOMAX) CAP PO SCH (08:54)
[2021-04-27] MEDS: polyethylene glycoL POWDER 17 GM (MIRALAX) PACK PO SCH ×2 (08:54→21:06)
[2021-04-27] MEDS: DOCUSATE SODIUM 100 MG (COLACE) CAP PO SCH ×2 (08:54→21:05)
--- NOTE | 2021-04-27 10:50 | Physical Therapy Daily Note ---
PT Daily Note-Current Subjective Pt in bathroom upon arrival w/ nursing in room and agrees to tx. Pt has no c/o pain at this time Mental Status Patient Orientation: Person, Place, Time, Situation Transfers SCALE: Activities may be completed with or without assistive devices. 5-Hkbakvisgu-mqmhxvc completes the activity by him/herself with no assistance from a helper. 5-Set-up or Clean-up Assistance-helper sets up or cleans up; patient completes activity. Wing assists only prior to or following the activity. 4-Supervision or Touching Assistance-helper provides verbal cues and/or touching/steadying and/or contact guard assistance as patient completes act ivity. Assistance may be provided throughout the activity or intermittently. 3-Partial/Moderate Assistance-helper does LESS THAN HALF the effort. Wing lifts, holds or supports trunk or limbs, but provides less than half the effort. 2-Substantial/Maximal Assistance-helper does MORE THAN HALF the effort. Wing lifts or holds trunk or limbs and provides more than half the effort. 3-Tbpqbcsko-ciozne does ALL the effort. Patient does none of the effort to complete the activity. Or, the assistance of 2 or more helpers is required for the patient to complete the activity. If activity was not attempted, code reason: 7-Patient Refused. 9-Not Applicable-not attempted and the patient did not perform the activity before the current illness, exacerbation or injury. 10-Not Attempted due to Environmental Limitations-(lack of equipment, weather restraints, etc.). 88-Not Attempted due to Medical Conditions or Safety Concerns. Sit to Stand (QC): 3 Gait Training Does the Patient Walk?: Yes Distance: 125' x2 Walk 10 feet (QC): 4 Walk 50 ft with 2 Turns(QC): 4 Gait Assistive Device: FWW Pt has slow gait with Trendelenburg gait and L knee hyperextension. Exercises NuStep Minutes: 15 NuStep Workload: 4 Treatments Pt in bathroom brushing teeth at beginning of tx. Pt propels self out of bathroom and to hallway in . Pt sit to stand Trent and amb 125' to therapy gym and completes NuStep. Pt then amb back to room and sits in recliner. Pt remains in recliner with all needs met, call light in hand. Assessment Current Status: Good Progress Pt increasing strength, endurance, and mobility. PT Short Term Goals Short Term Goals Time Frame: Apr 30, 2021 Roll Left & Right: 6 Sit to lyin (Trent) Lying to sitting on side of be: 3 (Trent) Sit to stand: 3 (Trent) Chair/npy-zo-zcpup transfer: 3 (Trent) Walk 10 feet: 3 (Trent) PT Jail Goals Jail Goals PT Accounting Tutor Goals Time Frame: May 14, 2021 Roll Left & Right (QC): 6 Sit to Lying (QC): 4 Lying-Sitting on Side/Bed(QC): 4 Sit to Stand (QC): 4 Chair/Trq-vy-Oimmv Xfer(QC): 4 Toilet Transfer (QC): 4 Car Transfer (QC): 4 Does the Patient Walk: Yes Walk 10 feet (QC): 4 Walk 50ft with 2 Turns (QC): 4 Walk 150 ft (QC): 88 Walking 10ft on Uneven Surface: 3 1 Step (curb) (QC): 4 4 Steps (QC): 88 12 Steps (QC): 88 Picking up an Object (QC): 88 Wheel 50 feet with 2 turns (QC: 9 Wheel 150 feet: 9 PT Plan Treatment/Plan Treatment Plan: Continue Plan of Care Treatment Plan: Bed Mobility, Education, Functional Activity Marc, Functional Strength, Group Therapy, Gait, Safety, Therapeutic Exercise, Transfers Treatment Duration: May 14, 2021 Frequency: At least 5 of 7 days/Wk (IRF) Estimated Hrs Per Day: 1.5 hours per day Patient and/or Family Agrees t: Yes Time/GCodes Time In: 1024 Time Out: 1057 Total Billed Treatment Time: 33 Total Billed Treatment 1, Ex, GT 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
[2021-04-27 19:57] VITALS: BP 94/63
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
[2021-04-28] MEDS: CATHETER FLUSH 10 ML SYR IV SCH ×3 (06:24→21:05)
[2021-04-28 07:12] VITALS: BP 105/67
[2021-04-28] MEDS: TAMSULOSIN 0.4 MG (FLOMAX) CAP PO SCH (08:31)
[2021-04-28] MEDS: DOCUSATE SODIUM 100 MG (COLACE) CAP PO SCH ×2 (08:31→20:25)
[2021-04-28] MEDS: polyethylene glycoL POWDER 17 GM (MIRALAX) PACK PO SCH ×2 (08:31→20:25)
[2021-04-28] MEDS: SENNA W/DOCUSATE (SENOKOT S) TABLET PO SCH ×2 (08:32→20:25)
[2021-04-28 19:00] VITALS: BP 118/58
[2021-04-29 06:45] LABS: BASOPHILS # (AUTO) 0.1 10^3/uL (0.0-0.1); BASOPHILS % (AUTO) 1 % (0-10); EOSINOPHILS # (AUTO) 0.2 10^3/uL (0.0-0.3); EOSINOPHILS % (AUTO) 5 % (0-10); HEMATOCRIT 29 % (40-54); HEMOGLOBIN 9.2 g/dL (13.3-17.7); LYMPHOCYTES # (AUTO) 1.2 10^3/uL (1.0-4.0); LYMPHOCYTES % (AUTO) 28 % (12-44); MEAN CORPUSCULAR HEMOGLOBIN 27 pg (25-34); MEAN CORPUSCULAR HGB CONC 31 g/dL (32-36); MEAN CORPUSCULAR VOLUME 86 fL (80-99); MEAN PLATELET VOLUME 12.2 fL (9.0-12.2); MONOCYTES # (AUTO) 0.4 10^3/uL (0.0-1.0); MONOCYTES % (AUTO) 8 % (0-12); NEUTROPHILS # (AUTO) 2.5 10^3/uL (1.8-7.8); NEUTROPHILS % (AUTO) 57 % (42-75); PLATELET COUNT 296 10^3/uL (130-400); WHITE BLOOD COUNT 4.4 10^3/uL (4.3-11.0)
[2021-04-29] MEDS: CATHETER FLUSH 10 ML SYR IV SCH ×3 (06:48→20:15)
[2021-04-29 07:10] LABS: ALBUMIN 2.9 GM/DL (3.2-4.5); POTASSIUM 3.9 MMOL/L (3.6-5.0)
[2021-04-29 07:12] LABS: CALCIUM 9.2 MG/DL (8.5-10.1)
[2021-04-29 07:15] LABS: BILIRUBIN,TOTAL 0.3 MG/DL (0.1-1.0)
[2021-04-29 07:16] LABS: CREATININE SERUM 0.71 MG/DL (0.60-1.30)
[2021-04-29 07:37] VITALS: BP 102/59
[2021-04-29 08:31] LABS: BILIRUBIN,URINE NEGATIVE (NEGATIVE); CLARITY,URINE CLEAR; COLOR,URINE YELLOW; GLUCOSE, URINE (UA) NEGATIVE (NEGATIVE); KETONES,URINE NEGATIVE (NEGATIVE); LEUKOCYTE ESTERASE ,URINE 1+ (NEGATIVE); NITRITE,URINE POSITIVE (NEGATIVE); PROTEIN,URINE NEGATIVE (NEGATIVE)
[2021-04-29 08:42] LABS: BACTERIA,URINE LARGE /HPF; WBC,URINE 50-100 /HPF
--- NOTE | 2021-04-29 08:43 | Occupational Ther Daily Note ---
OT Current Status-Daily Note Subjective Patient sitting in chair, alert. Pt agrees to therapy. No c/o pain. Mental Status/Objective Patient Orientation: Person, Place, Time, Situation Attachments: Other-See Comments (B UE/forearm orthosis) ADL-Treatment Pt transferred chair->FWW -> w/c to bathroom CGA. Engaged in oral care and grooming independently while seated by the sink. Pt transferred back to chair CGA using FWW. Pt demonstrated use of gait belt to pull LE onto lap to don socks with Min A. Pt engaged in use of sock aide with compensatory techniques in stabilizing sock aide. PT/OT cotreat with pt ([id number]). 2 clinicians required for skilled treatment to decrease fall risk, increase mobility and activity tolerance for ADLs. PT focused on transfers and mobility, OT focused on functional mobility, standing balance while engaging in functional activity of reaching. Pt transferred from chair to FWW and ambulated to therapy gym. See PT notes for transfers and mobility. Pt stood at FWW while reaching B shoulder height and chest height for beanbags and placing them into his basket crossing midline. Pt then retrieved the bags and gave them back. Pt had balance challenges though was able to right self using FWW during shldr height reaching/placing and able to right self at chest height. After session, pt left with PT, all needs met. Therapy Code Descriptions/Definitions Functional [place] Measure: 0=Not Assessed/NA 4=Minimal Assistance 1=Total Assistance 5=Supervision or Setup 2=Maximal Assistance 6=Modified [place] 3=Moderate Assistance 7=Complete IndependenceSCALE: Activities may be completed with or without assistive devices. 6-Wrcsfigkhv-neyqswr completes the activity by him/herself with no assistance from a helper. 5-Set-up or Clean-up Assistance-helper sets up or cleans up; patient completes activity. [place] assists only prior to or following the activity. 4-Supervision or Touching Assistance-helper provides verbal cues and/or touching/steadying and/or contact guard assistance as patient completes activity. Assistance may be provided throughout the activity or intermittently. 3-Partial/Moderate Assistance-helper does LESS THAN HALF the effort. [place] lifts, holds or supports trunk or limbs, but provides less than half the effort. 2-Substantial/Maximal Assistance-helper does MORE THAN HALF the effort. [place] lifts or holds trunk or limbs and provides more than half the effort. 5-Fheukfenj-esgkyt does ALL the effort. Patient does none of the effort to complete the activity. Or, the assistance of 2 or more helpers is required for the patient to complete the activity. If activity was not attempted, code reason: 7-Patient Refused. 9-Not Applicable-not attempted and the patient did not perform the activity before the current illness, exacerbation or injury. 10-Not Attempted due to Environmental Limitations-(lack of equipment, weather restraints, etc.). 88-Not Attempted due to Medical Conditions or Safety Concerns. Oral Hygiene (QC): 6 On/Off Footwear: 3 (SBA in donning socks and use of sock aide) OT Short Term Goals Short Term Goals Time Frame: May 07, 2021 Eatin Oral hygiene: 6 Toileting hygiene: 3 Shower/bathe self: 3 Upper body dressin Lower body dressin Putting on/taking off footwear: 3 OT Usp Goals Usp Goals Time Frame: May 17, 2021 Eating (QC): 6 Oral Hygiene (QC): 6 Toileting Hygiene (QC): 3 (Assist only with allie care due to not having bidet. Pt indep with clothing management. ) Shower/Bathe Self (QC): 4 Upper Body Dressing (QC): 5 Lower Body Dressing (QC): 5 On/Off Footwear (QC): 5 1=Demonstrate adherence to instructed precautions during ADL tasks. 2=Patient will verbalize/demonstrate understanding of assistive devices/modifications for ADL. 3=Patient will improve strength/tolerance for activity to enable patient to perform ADL's. OT Education/Plan Problem List/Assessment Assessment: Decreased Activ Tolerance, Impaired Funct Balance, Impaired Self- Care Skills, Restricted Funct UE ROM Discharge Recommendations Plan/Recommendations: Continue POC Treatment Plan/Plan of Care Patient would benefit from OT for education, treatment and training to promote independence in ADL's, mobility, safety and/or upper extremity function for ADL's. Plan of Care: ADL Retraining, Functional Mobility, Group Exercise/Act as Ind, Orthotic Fitting/Training, UE Funct Exercise/Act, W/C Management Training Treatment Duration: May 17, 2021 Frequency: At least 5 of 7 days/Wk (IRF) Estimated Hrs Per Day: 1.5 hours per day Agreement: Yes Rehab Potential: Fair Time/GCodes Start Time: 07:30 Stop Time: 08:30 Total Time Billed (hr/min): 60 Billed Treatment Time 1 Visit- ADL 2 (30 min) FA (30 min) Cotreat with PT ([id number]), Individual ([id number]) LONA ANDREWS Apr 29, 2021 08:43
--- NOTE | 2021-04-29 08:51 | Physical Therapy Daily Note ---
PT Daily Note-Current Subjective Patient in recliner pre tx, agrees to PT, voices no complaints of pain. Patient has already been working with OT, will be co-treating with OT for part of tx due to poor patient mobility, strength, endurance, balance and poor core strength, coordinate UE and LE during activity, safety and reduce risk of falls. Appearance Patient in recliner post tx with nurse call, phone, tray, all needs met. Mental Status Patient Orientation: Person, Place, Situation back brace, bilateral prosthetic arms Transfers SCALE: Activities may be completed with or without assistive devices. 8-Hxonlldkhq-yqnxcbv completes the activity by him/herself with no assistance from a helper. 5-Set-up or Clean-up Assistance-helper sets up or cleans up; patient completes activity. [place] assists only prior to or following the activity. 4-Supervision or Touching Assistance-helper provides verbal cues and/or touching/steadying and/or contact guard assistance as patient completes activity. Assistance may be provided throughout the activity or intermittently. 3-Partial/Moderate Assistance-helper does LESS THAN HALF the effort. [place] lifts, holds or supports trunk or limbs, but provides less than half the effort. 2-Substantial/Maximal Assistance-helper does MORE THAN HALF the effort. [place] lifts or holds trunk or limbs and provides more than half the effort. 1-Eupsdujej-kelnjg does ALL the effort. Patient does none of the effort to complete the activity. Or, the assistance of 2 or more helpers is required for the patient to complete the activity. If activity was not attempted, code reason: 7-Patient Refused. 9-Not Applicable-not attempted and the patient did not perform the activity before the current illness, exacerbation or injury. 10-Not Attempted due to Environmental Limitations-(lack of equipment, weather restraints, etc.). 88-Not Attempted due to Medical Conditions or Safety Concerns. Sit to Stand (QC): 3 Chair/Hoj-ns-Bztgc Xfer(QC): 4 Min assist to stand from lower surfaces. Patient practices some dressing before ambulating to gym. Gait Training Distance: 120'x2 Walk 10 feet (QC): 4 Walk 50 ft with 2 Turns(QC): 4 Gait Assistive Device: FWW slow ambulation, trendelenburg gait, left knee hyperextension, patient is unsteady but had no LOB Exercises standing balance and trunk strength activity involving reaching or mederos bags NuStep Minutes: 15 NuStep Workload: 5 Treatments PT performed transfers, ambulation, functional strengthening, standing and balance during reaching activity, positioning and safety during activity, OT wor ked on dressing, reaching activity, UE positioning and safety during activity. Assessment Current Status: Fair Progress slowly improving LE strength PT Short Term Goals Short Term Goals Time Frame: Apr 30, 2021 Roll Left & Right: 6 Sit to lyin ([place]) Lying to sitting on side of be: 3 ([place]rent) Sit to stand: 3 ([place]rent) Chair/mue-sc-uhwlh transfer: 3 (Trent) Walk 10 feet: 3 (Trent) PT [facility] Goals [facility] Goals PT [facility] Goals Time Frame: May 14, 2021 Roll Left & Right (QC): 6 Sit to Lying (QC): 4 Lying-Sitting on Side/Bed(QC): 4 Sit to Stand (QC): 4 Chair/Fbo-dm-Nfkvs Xfer(QC): 4 Toilet Transfer (QC): 4 Car Transfer (QC): 4 Does the Patient Walk: Yes Walk 10 feet (QC): 4 Walk 50ft with 2 Turns (QC): 4 Walk 150 ft (QC): 88 Walking 10ft on Uneven Surface: 3 1 Step (curb) (QC): 4 4 Steps (QC): 88 12 Steps (QC): 88 Picking up an Object (QC): 88 Wheel 50 feet with 2 turns (QC: 9 Wheel 150 feet: 9 PT Plan Problem List Problem List: Activity Tolerance, Functional Strength, Safety, Balance, Gait, Transfer, Bed Mobility, ROM Treatment/Plan Treatment Plan: Continue Plan of Care Treatment Plan: Bed Mobility, Education, Functional Activity Marc, Functional Strength, Group Therapy, Gait, Safety, Therapeutic Exercise, Transfers Treatment Duration: May 14, 2021 Frequency: At least 5 of 7 days/Wk (IRF) Estimated Hrs Per Day: 1.5 hours per day Patient and/or Family Agrees t: Yes Safety Risks/Education Patient Education: Gait Training, Transfer Techniques, Reviewed Precautions, Correct Positioning, Safety Issues Teaching Recipient: Patient Teaching Methods: Demonstration, Discussion Response to Teaching: Reinforcement Needed Time/GCodes Time In: 0800 Time Out: 0900 Total Billed Treatment Time: 60 Total Billed Treatment 1 visit EX 30' FA 30' RORY FRANCOIS PT Apr 29, 2021 08:51
[2021-04-29] MEDS: TAMSULOSIN 0.4 MG (FLOMAX) CAP PO SCH (09:00)
[2021-04-29] MEDS: polyethylene glycoL POWDER 17 GM (MIRALAX) PACK PO SCH ×2 (09:01→20:15)
[2021-04-29] MEDS: DOCUSATE SODIUM 100 MG (COLACE) CAP PO SCH ×2 (09:01→20:15)
[2021-04-29] MEDS: SENNA W/DOCUSATE (SENOKOT S) TABLET PO SCH ×2 (09:02→20:15)
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
--- NOTE | 2021-04-29 13:54 | Occupational Ther Daily Note ---
OT Current Status-Daily Note Subjective Pt alertsupine in bed with HOB raised. Pt agrees to therapy. Reported some pain. Did not rate. Mental Status/Objective Patient Orientation: Person, Place, Time, Situation Attachments: Other-See Comments (Forearm orthosis, sacral lumbar brace) ADL-Treatment Pt donned lumbar/sacral brace SBA EOB using compensatory techniques. Pt participated in dynamic standing activity. Pt transferred EOB to standing using FWW. Pt engaged in tossing beanbags and cup sorting while standing perched EOB w hile completing B UE crossing midline to stack cups on raised table using FWW and tossing beanbags into basket to increase standing tolerance and LE strength to complete ADLs. After session pt laying supine in bed with call light/phone in reach. Nrsg aware of pt pain. All needs were met. Therapy Code Descriptions/Definitions Functional [place] Measure: 0=Not Assessed/NA 4=Minimal Assistance 1=Total Assistance 5=Supervision or Setup 2=Maximal Assistance 6=Modified [place] 3=Moderate Assistance 7=Complete IndependenceSCALE: Activities may be completed with or without assistive devices. 9-Lrafpjcmgn-bqiarga completes the activity by him/herself with no assistance from a helper. 5-Set-up or Clean-up Assistance-helper sets up or cleans up; patient completes activity. [place] assists only prior to or following the activity. 4-Supervision or Touching Assistance-helper provides verbal cues and/or touchin g/steadying and/or contact guard assistance as patient completes activity. Assistance may be provided throughout the activity or intermittently. 3-Partial/Moderate Assistance-helper does LESS THAN HALF the effort. [place] lifts, holds or supports trunk or limbs, but provides less than half the effort. 2-Substantial/Maximal Assistance-helper does MORE THAN HALF the effort. [place] lifts or holds trunk or limbs and provides more than half the effort. 0-Glalagmck-myxcwo does ALL the effort. Patient does none of the effort to complete the activity. Or, the assistance of 2 or more helpers is required for the patient to complete the activity. If activity was not attempted, code reason: 7-Patient Refused. 9-Not Applicable-not attempted and the patient did not perform the activity before the current illness, exacerbation or injury. 10-Not Attempted due to Environmental Limitations-(lack of equipment, weather restraints, etc.). 88-Not Attempted due to Medical Conditions or Safety Concerns. OT Short Term Goals Short Term Goals Time Frame: May 07, 2021 Eatin Oral hygiene: 6 Toileting hygiene: 3 Shower/bathe self: 3 Upper body dressin Lower body dressin Putting on/taking off footwear: 3 OT Hospice Care Consultant Goals [facility] Consultant Goals Time Frame: May 17, 2021 Eating (QC): 6 Oral Hygiene (QC): 6 Toileting Hygiene (QC): 3 (Assist only with allie care due to not having bidet. Pt indep with clothing management. ) Shower/Bathe Self (QC): 4 Upper Body Dressing (QC): 5 Lower Body Dressing (QC): 5 On/Off Footwear (QC): 5 1=Demonstrate adherence to instructed precautions during ADL tasks. 2=Patient will verbalize/demonstrate understanding of assistive devices/modifications for ADL. 3=Patient will improve strength/tolerance for activity to enable patient to per form ADL's. OT Education/Plan Problem List/Assessment Assessment: Decreased Activ Tolerance, Impaired Funct Balance, Impaired Self- Care Skills, Restricted Funct UE ROM Discharge Recommendations Plan/Recommendations: Continue POC Treatment Plan/Plan of Care Patient would benefit from OT for education, treatment and training to promote independence in ADL's, mobility, safety and/or upper extremity function for ADL's. Plan of Care: ADL Retraining, Functional Mobility, Group Exercise/Act as Ind, Orthotic Fitting/Training, UE Funct Exercise/Act, W/C Management Training Treatment Duration: May 17, 2021 Frequency: At least 5 of 7 days/Wk (IRF) Estimated Hrs Per Day: 1.5 hours per day Agreement: Yes Rehab Potential: Fair Time/GCodes Start Time: 13:00 Stop Time: 13:30 Total Time Billed (hr/min): 30 Billed Treatment Time 1 Visit- FA 2 (30 min) [id number] LONA ANDREWS Apr 29, 2021 13:54
--- NOTE | 2021-04-29 13:59 | Physical Therapy Daily Note ---
PT Daily Note-Current Subjective Patient in bed pre tx, agrees to PT, voices no complaints of pain. Appearance Patient in bed post tx with nurse call, phone, tray, all needs met. Mental Status Patient Orientation: Person, Place, Situation back brace and bilateral arm prosthesis Transfers SCALE: Activities may be completed with or without assistive devices. 5-Jllowyqqfn-rfoujea completes the activity by him/herself with no assistance from a helper. 5-Set-up or Clean-up Assistance-helper sets up or cleans up; patient completes activity. [place] assists only prior to or following the activity. 4-Supervision or Touching Assistance-helper provides verbal cues and/or touching/steadying and/or contact guard assistance as patient completes activity. Assistance may be provided throughout the activity or intermittently. 3-Partial/Moderate Assistance-helper does LESS THAN HALF the effort. [place] lifts, holds or supports trunk or limbs, but provides less than half the effort. 2-Substantial/Maximal Assistance-helper does MORE THAN HALF the effort. [place] lifts or holds trunk or limbs and provides more than half the effort. 0-Hjumuxoug-sdnfog does ALL the effort. Patient does none of the effort to complete the activity. Or, the assistance of 2 or more helpers is required for the patient to complete the activity. If activity was not attempted, code reason: 7-Patient Refused. 9-Not Applicable-not attempted and the patient did not perform the activity before the current illness, exacerbation or injury. 10-Not Attempted due to Environmental Limitations-(lack of equipment, weather restraints, etc.). 88-Not Attempted due to Medical Conditions or Safety Concerns. Roll Left & Right (QC): 6 Sit to Lying (QC): 6 Lying to Sitting/Side of Bed(Q: 6 Sit to Stand (QC): 4 Chair/Pca-qp-Nwkia Xfer(QC): 4 Gait Training Distance: 120'x2 Walk 10 feet (QC): 4 Walk 50 ft with 2 Turns(QC): 4 Gait Persons Needed: 1 Gait Assistive Device: FWW slow ambulation, left knee hyperextension Exercises sit to stand from elevated therapy table 3 sets of 10 Treatments bed mobility and transfers, ambulation, LE strengthening Assessment Current Status: Fair Progress improving LE strength PT Short Term Goals Short Term Goals Time Frame: Apr 30, 2021 Roll Left & Right: 6 Sit to lyin ([place]) Lying to sitting on side of be: 3 ([place]) Sit to stand: 3 ([place]) Chair/tyk-xb-obovn transfer: 3 ([place]) Walk 10 feet: 3 ([place]) PT Prison Goals Prison Goals PT [facility] Goals Time Frame: May 14, 2021 Roll Left & Right (QC): 6 Sit to Lying (QC): 4 Lying-Sitting on Side/Bed(QC): 4 Sit to Stand (QC): 4 Chair/Jeb-vu-Tqqbq Xfer(QC): 4 Toilet Transfer (QC): 4 Car Transfer (QC): 4 Does the Patient Walk: Yes Walk 10 feet (QC): 4 Walk 50ft with 2 Turns (QC): 4 Walk 150 ft (QC): 88 Walking 10ft on Uneven Surface: 3 1 Step (curb) (QC): 4 4 Steps (QC): 88 12 Steps (QC): 88 Picking up an Object (QC): 88 Wheel 50 feet with 2 turns (QC: 9 Wheel 150 feet: 9 PT Plan Problem List Problem List: Activity Tolerance, Functional Strength, Safety, Balance, Gait, Transfer, Bed Mobility, ROM Treatment/Plan Treatment Plan: Continue Plan of Care Treatment Plan: Bed Mobility, Education, Functional Activity Marc, Functional Strength, Group Therapy, Gait, Safety, Therapeutic Exercise, Transfers Treatment Duration: May 14, 2021 Frequency: At least 5 of 7 days/Wk (IRF) Estimated Hrs Per Day: 1.5 hours per day Patient and/or Family Agrees t: Yes Safety Risks/Education Patient Education: Gait Training, Transfer Techniques, Correct Positioning, Safety Issues Teaching Recipient: Patient Teaching Methods: Demonstration, Discussion Response to Teaching: Reinforcement Needed Time/GCodes Time In: 1330 Time Out: 1400 Total Billed Treatment Time: 30 Total Billed Treatment 1 visit EX 15' FA 15' RORY FRANCOIS PT Apr 29, 2021 13:59
[2021-04-29 20:00] VITALS: BP 98/56
[2021-04-30] MEDS: CATHETER FLUSH 10 ML SYR IV SCH ×3 (06:18→21:26)
[2021-04-30 07:20] VITALS: BP 99/52
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
[2021-04-30] MEDS: polyethylene glycoL POWDER 17 GM (MIRALAX) PACK PO SCH ×2 (08:32→21:23)
[2021-04-30] MEDS: DOCUSATE SODIUM 100 MG (COLACE) CAP PO SCH ×2 (08:32→21:19)
[2021-04-30] MEDS: SENNA W/DOCUSATE (SENOKOT S) TABLET PO SCH ×2 (08:32→21:18)
[2021-04-30] MEDS: TAMSULOSIN 0.4 MG (FLOMAX) CAP PO SCH (08:39)
--- NOTE | 2021-04-30 08:56 | Occupational Ther Daily Note ---
OT Current Status-Daily Note Subjective Pt sitting in recliner chair. Pt agrees to therapy. No c/o pain. Mental Status/Objective Patient Orientation: Person, Place, Time, Situation Attachments: Other-See Comments (sacral lumbar brace, B forearm orthosis, IV line) ADL-Treatment Patient agrees to shower. Pt ambulated to shower using FWW SBA. Pt engaged in standing pivot transfer to [facility] requiring verbal cue and tactile cue on hand placement to safely transfer. Pt doffed back brace independently. Surgical incisions and IV were covered before shower. Pt required Min A to transfer sit- >stand from [facility], SBA stand->sit in standard w/c to do oral care/grooming while seated Independently. Pt transferred to recliner from w/c using squat pivot transfer SBA. Pt engaged in therapeutic exercise to strengthen B UE and increase activity tolerance for ADLs. Patient participated in bicep curls 10 sets x 2 reps, shoulder abd/add 10 sets against gravity. Pt completed figure 4 technique to simulate donning/doffing socks 5 times. After session, pt seated in recliner with call light/phone within reach. All needs were met in room. Therapy Code Descriptions/Definitions Functional [place] Measure: 0=Not Assessed/NA 4=Minimal Assistance 1=Total Assistance 5=Supervision or Setup 2=Maximal Assistance 6=Modified [place] 3=Moderate Assistance 7=Complete IndependenceSCALE: Activities may be completed with or without assistive devices. 4-Hbztoaqmmc-sennlcy completes the activity by him/herself with no assistance from a helper. 5-Set-up or Clean-up Assistance-helper sets up or cleans up; patient completes activity. [place] assists only prior to or following the activity. 4-Supervision or Touching Assistance-helper provides verbal cues and/or touching/steadying and/or contact guard assistance as patient completes activity. Assistance may be provided throughout the activity or intermittently. 3-Partial/Moderate Assistance-helper does LESS THAN HALF the effort. [place] lifts, holds or supports trunk or limbs, but provides less than half the effort. 2-Substantial/Maximal Assistance-helper does MORE THAN HALF the effort. [place] lifts or holds trunk or limbs and provides more than half the effort. 7-Vqkmcutdm-viirol does ALL the effort. Patient does none of the effort to complete the activity. Or, the assistance of 2 or more helpers is required for the patient to complete the activity. If activity was not attempted, code reason: 7-Patient Refused. 9-Not Applicable-not attempted and the patient did not perform the activity before the current illness, exacerbation or injury. 10-Not Attempted due to Environmental Limitations-(lack of equipment, weather restraints, etc.). 88-Not Attempted due to Medical Conditions or Safety Concerns. Eating (QC): 6 (Pt able to set up own meal and use regular utensils to eat.) Oral Hygiene (QC): 6 Bathing Location: L Arm, R Arm, L Upper Leg, R Upper Leg, Chest, Abdomen Shower/Bathe Self (QC): 3 (Pt sat on BSC to complete shower. Assist to rinse with hand held shower. Pt placed washcloth on floor to cleanse feet. Assist given for bath lower legs, buttocks and allie area. ) Lower Body Dressing (QC): 2 (Max A threading pants over feet. Mod A hiking pants over hips) On/Off Footwear: 2 (Max A donning socks, Independent doffing socks) Toilet Transfer (QC): 4 (CGA) Education OT Patient Education: Correct positioning, Transfer techniques Teaching Recipient: Patient Teaching Methods: Demonstration, Discussion Response to Teaching: Verbalize Understanding, Return Demonstration OT Short Term Goals Short Term Goals Time Frame: May 07, 2021 Eatin Oral hygiene: 6 Toileting hygiene: 3 Shower/bathe self: 3 Upper body dressin Lower body dressin Putting on/taking off footwear: 3 OT Day Treatment Clinician/Art Therapist Goals Snf Goals Time Frame: May 17, 2021 Eating (QC): 6 Oral Hygiene (QC): 6 Toileting Hygiene (QC): 3 (Assist only with allie care due to not having bidet. Pt indep with clothing management. ) Shower/Bathe Self (QC): 4 Upper Body Dressing (QC): 5 Lower Body Dressing (QC): 5 On/Off Footwear (QC): 5 1=Demonstrate adherence to instructed precautions during ADL tasks. 2=Patient will verbalize/demonstrate understanding of assistive devices/modifications for ADL. 3=Patient will improve strength/tolerance for activity to enable patient to perform ADL's. OT Education/Plan Problem List/Assessment Assessment: Decreased UE Strength, Impaired Funct Balance, Impaired Self-Care Skills, Restricted Funct UE ROM Discharge Recommendations Plan/Recommendations: Continue POC Treatment Plan/Plan of Care Patient would benefit from OT for education, treatment and training to promote independence in ADL's, mobility, safety and/or upper extremity function for ADL's. Plan of Care: ADL Retraining, Functional Mobility, Group Exercise/Act as Ind, Orthotic Fitting/Training, UE Funct Exercise/Act, W/C Management Training Treatment Duration: May 17, 2021 Frequency: At least 5 of 7 days/Wk (IRF) Estimated Hrs Per Day: 1.5 hours per day Agreement: Yes Rehab Potential: Fair Time/GCodes Start Time: 07:30 Stop Time: 09:00 Total Time Billed (hr/min): 90 Billed Treatment Time 1 Visit- ADL 4 (60 min) EX 2 (30 min) [id number] LONA ANDREWS Apr 30, 2021 08:56
--- NOTE | 2021-04-30 10:09 | Physical Therapy Daily Note ---
PT Daily Note-Current Subjective Pt sitting in recliner upon arrival. Pt agrees to PT. Pain Location: No Pain Reported Mental Status Patient Orientation: Person, Place, Time, Situation Attachments: Other-See Comments (TLSO Brace) Transfers SCALE: Activities may be completed with or without assistive devices. 8-Wwcbauwwqx-pwdtxzs completes the activity by him/herself with no assistance from a helper. 5-Set-up or Clean-up Assistance-helper sets up or cleans up; patient completes activity. [place] assists only prior to or following the activity. 4-Supervision or Touching Assistance-helper provides verbal cues and/or touching/steadying and/or contact guard assistance as patient completes activity. Assistance may be provided throughout the activity or intermittently. 3-Partial/Moderate Assistance-helper does LESS THAN HALF the effort. [place] lifts, holds or supports trunk or limbs, but provides less than half the effort. 2-Substantial/Maximal Assistance-helper does MORE THAN HALF the effort. [place] lifts or holds trunk or limbs and provides more than half the effort. 5-Qvlegvqtl-vowsjx does ALL the effort. Patient does none of the effort to complete the activity. Or, the assistance of 2 or more helpers is required for the patient to complete the activity. If activity was not attempted, code reason: 7-Patient Refused. 9-Not Applicable-not attempted and the patient did not perform the activity before the current illness, exacerbation or injury. 10-Not Attempted due to Environmental Limitations-(lack of equipment, weather restraints, etc.). 88-Not Attempted due to Medical Conditions or Safety Concerns. Sit to Stand (QC): 4 Weight Bearing Full Weight Bearing Full Weight Bearing Gait Training Does the Patient Walk?: Yes Distance: 150', 300' Walk 10 feet (QC): 4 Walk 50 ft with 2 Turns(QC): 4 Walk 150 ft (QC): 4 Gait Persons Needed: 1 Gait Assistive Device: FWW Exercises Standing: Hip Abduction, Hamstring curls, Heel/toe raises, Marching, Sit to Stand Standing Reps: 15 NuStep Minutes: 15 NuStep Workload: 5 Treatments 900-1000: TF to standing, declining need for BR. Pt amb. in hallway before using NuStep for 15m at WL 5. Pt takes short RB then amb. in //bars w/o AD and balance activity in //bars. Pt amb. in hallway and back to room to rest in recliner. All needs are met, call light in hand. [id number]: Pt declines needs for BR & TF to standing from EOB. Pt completes Standing EX in //bars then takes short RB. Pt amb. in hallway before returning to room to rest in recliner. All needs met, call light in hand. Assessment Current Status: Good Progress Pt needs a little additional time to complete tasks as he has to reposition Prosthetics for improved balance. Pt needs occasional rest breaks for fatigue. PT Short Term Goals Short Term Goals Time Frame: Apr 30, 2021 Roll Left & Right: 6 Sit to lyin ([place]) Lying to sitting on side of be: 3 ([place]) Sit to stand: 3 ([place]) Chair/nid-yl-doghu transfer: 3 ([place]) Walk 10 feet: 3 ([place]) PT Custodial Goals Household Worker Goals PT Custodial Goals Time Frame: May 14, 2021 Roll Left & Right (QC): 6 Sit to Lying (QC): 4 Lying-Sitting on Side/Bed(QC): 4 Sit to Stand (QC): 4 Chair/Uvp-eb-Blvjo Xfer(QC): 4 Toilet Transfer (QC): 4 Car Transfer (QC): 4 Does the Patient Walk: Yes Walk 10 feet (QC): 4 Walk 50ft with 2 Turns (QC): 4 Walk 150 ft (QC): 88 Walking 10ft on Uneven Surface: 3 1 Step (curb) (QC): 4 4 Steps (QC): 88 12 Steps (QC): 88 Picking up an Object (QC): 88 Wheel 50 feet with 2 turns (QC: 9 Wheel 150 feet: 9 PT Plan Problem List Problem List: Activity Tolerance, Functional Strength, Transfer Treatment/Plan Treatment Plan: Continue Plan of Care Treatment Plan: Bed Mobility, Education, Functional Activity Marc, Functional Strength, Group Therapy, Gait, Safety, Therapeutic Exercise, Transfers Treatment Duration: May 14, 2021 Frequency: At least 5 of 7 days/Wk (IRF) Estimated Hrs Per Day: 1.5 hours per day Patient and/or Family Agrees t: Yes Safety Risks/Education Patient Education: Transfer Techniques, Correct Positioning Teaching Recipient: Patient Teaching Methods: Discussion Response to Teaching: Verbalize Understanding Time/GCodes Time In: 900 Time Out: 1000 Total Billed Treatment Time: 60 Total Billed Treatment 900-1000: 1, GT x2 (30m), FA (15m) & EX (15m) [id number]: 1, GT (10m), EX (20m) ROBI DANIEL [employer]IN[employer] Apr 30, 2021 10:09
[2021-04-30 19:39] VITALS: BP 96/61
[2021-05-01] MEDS: CATHETER FLUSH 10 ML SYR IV SCH ×3 (06:19→22:10)
[2021-05-01] MEDS: SENNA W/DOCUSATE (SENOKOT S) TABLET PO SCH ×2 (08:16→20:28)
[2021-05-01] MEDS: DOCUSATE SODIUM 100 MG (COLACE) CAP PO SCH ×2 (08:16→20:28)
[2021-05-01] MEDS: polyethylene glycoL POWDER 17 GM (MIRALAX) PACK PO SCH ×2 (08:16→20:28)
[2021-05-01] MEDS: TAMSULOSIN 0.4 MG (FLOMAX) CAP PO SCH (08:21)
[2021-05-01 08:22] VITALS: BP 105/59
--- NOTE | 2021-05-01 09:18 | Occupational Ther Daily Note ---
OT Current Status-Daily Note Subjective Pt sitting on BSC on toilet. Pt reported light back pain, not rated at this time. Pt. agrees to therapy Mental Status/Objective Patient Orientation: Person, Place, Time, Situation Attachments: Other-See Comments (sacral lumbar orthosis, IV) ADL-Treatment Pt agrees to shower. Pt transfers from toilet seat to FWW. Pt required assist in cleansing buttock after BM. All incisions and IV were covered before shower. Pt transferred to shower CGA with FWW. Pt required VC on hand placement with stand<->sit on BSC in shower, and Min A using FWW for stability. Pt reported pain 8/10 during sit->stand after shower when orthosis came apart during transfer. Nrsg notified and administered medication. Assist given to repair orthosis. Pt transferred to w/c using FWW to complete oral care and grooming at bathroom sink. Pt transferred to chair sitting squat pivot. After seen, Pt s itting in chair with call light/phone within reach. All needs met in room. Therapy Code Descriptions/Definitions Functional [place] Measure: 0=Not Assessed/NA 4=Minimal Assistance 1=Total Assistance 5=Supervision or Setup 2=Maximal Assistance 6=Modified [place] 3=Moderate Assistance 7=Complete IndependenceSCALE: Activities may be completed with or without assistive devices. 5-Epbkabbeqz-vyteinv completes the activity by him/herself with no assistance from a helper. 5-Set-up or Clean-up Assistance-helper sets up or cleans up; patient completes activity. [place] assists only prior to or following the activity. 4-Supervision or Touching Assistance-helper provides verbal cues and/or touching/steadying and/or contact guard assistance as patient completes activity. Assistance may be provided throughout the activity or intermittently. 3-Partial/Moderate Assistance-helper does LESS THAN HALF the effort. [place] lifts, holds or supports trunk or limbs, but provides less than half the effort. 2-Substantial/Maximal Assistance-helper does MORE THAN HALF the effort. [place] lifts or holds trunk or limbs and provides more than half the effort. 6-Tymdczvmj-bewehx does ALL the effort. Patient does none of the effort to complete the activity. Or, the assistance of 2 or more helpers is required for the patient to complete the activity. If activity was not attempted, code reason: 7-Patient Refused. 9-Not Applicable-not attempted and the patient did not perform the activity before the current illness, exacerbation or injury. 10-Not Attempted due to Environmental Limitations-(lack of equipment, weather restraints, etc.). 88-Not Attempted due to Medical Conditions or Safety Concerns. Oral Hygiene (QC): 6 Bathing Location: L Arm, R Arm, L Upper Leg, R Upper Leg, Chest, Abdomen Shower/Bathe Self (QC): 3 (Pt sat on BSC to complete. Assist to rinse with handheld shower. Assist given for lower legs, buttocks, and allie area.) Upper Body Dressing (QC): 5 (Set up) Lower Body Dressing (QC): 2 (Mod A threading pants over ankles, Max A hiking pants over hips) On/Off Footwear: 2 (Max A donning socks) Toileting Hygiene (QC): 1 (Dependent on cleansing buttocks) Toilet Transfer (QC): 4 (CGA) Pt asked on home set up. House is open with living room, dining room, and kitchen. Kitchen floor is not carpeted, non-skid rug present. There is a long hallway with small bathroom and laundry room on right. Bathroom has shower chair, toilet (bidet) has grab bar. Tub/shower and toilet are close together, easy transfer using grab bar from toilet. Using FWW, pt states he can transfer by turning 90* to toilet, 180* to tub chair. Pt has a soap dispenser in shower on wall uses 3 rags for washing (one on shower chair to wash LB). Pt states plywood will be put under the couch cushions to make couch more sturdy. Bedroom is at end of [place]. Bed is lifted to a good height for transfer. Pt uses roll method EOB->supine. Pt states to have home health, family lives close by, and a friend lives close in rental home. OT Short Term Goals Short Term Goals Time Frame: May 07, 2021 Eatin Oral hygiene: 6 Toileting hygiene: 3 Shower/bathe self: 3 Upper body dressin Lower body dressin Putting on/taking off footwear: 3 OT Intermediate Goals Cloth Spreader Goals Time Frame: May 17, 2021 Eating (QC): 6 Oral Hygiene (QC): 6 Toileting Hygiene (QC): 3 (Assist only with allie care due to not having bidet. Pt indep with clothing management. ) Shower/Bathe Self (QC): 4 Upper Body Dressing (QC): 5 Lower Body Dressing (QC): 5 On/Off Footwear (QC): 5 1=Demonstrate adherence to instructed precautions during ADL tasks. 2=Patient will verbalize/demonstrate understanding of assistive devices/modifications for ADL. 3=Patient will improve strength/tolerance for activity to enable patient to perform ADL's. OT Education/Plan Problem List/Assessment Assessment: Impaired Funct Balance, Impaired Self-Care Skills, Restricted Funct UE ROM Discharge Recommendations Plan/Recommendations: Continue POC Treatment Plan/Plan of Care Patient would benefit from OT for education, treatment and training to promote independence in ADL's, mobility, safety and/or upper extremity function for ADL's. Plan of Care: ADL Retraining, Functional Mobility, Group Exercise/Act as Ind, Orthotic Fitting/Training, UE Funct Exercise/Act, W/C Management Training Treatment Duration: May 17, 2021 Frequency: At least 5 of 7 days/Wk (IRF) Estimated Hrs Per Day: 1.5 hours per day Agreement: Yes Rehab Potential: Fair Time/GCodes Start Time: 07:30 Stop Time: 09:00 Total Time Billed (hr/min): 90 Billed Treatment Time 1 Visit- ADL 6 (90 min) LONA ANDREWS May 01, 2021 09:18
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
--- NOTE | 2021-05-01 09:59 | Physical Therapy Daily Note ---
PT Daily Note-Current Subjective Pt sitting in recliner upon arrival. Pt agrees to PT. Pain Location: No Pain Reported Mental Status Patient Orientation: Person, Place, Time, Situation Attachments: Other-See Comments (TLSO Brace ) Transfers SCALE: Activities may be completed with or without assistive devices. 8-Elcwniwlcp-msglcri completes the activity by him/herself with no assistance from a helper. 5-Set-up or Clean-up Assistance-helper sets up or cleans up; patient completes activity. [place] assists only prior to or following the activity. 4-Supervision or Touching Assistance-helper provides verbal cues and/or touching/steadying and/or contact guard assistance as patient completes activity. Assistance may be provided throughout the activity or intermittently. 3-Partial/Moderate Assistance-helper does LESS THAN HALF the effort. [place] lifts, holds or supports trunk or limbs, but provides less than half the effort. 2-Substantial/Maximal Assistance-helper does MORE THAN HALF the effort. [place] lifts or holds trunk or limbs and provides more than half the effort. 4-Bbwcejdtw-vszpep does ALL the effort. Patient does none of the effort to complete the activity. Or, the assistance of 2 or more helpers is required for the patient to complete the activity. If activity was not attempted, code reason: 7-Patient Refused. 9-Not Applicable-not attempted and the patient did not perform the activity before the current illness, exacerbation or injury. 10-Not Attempted due to Environmental Limitations-(lack of equipment, weather restraints, etc.). 88-Not Attempted due to Medical Conditions or Safety Concerns. Sit to Stand (QC): 4 Weight Bearing Full Weight Bearing Full Weight Bearing Gait Training Does the Patient Walk?: Yes Distance: 150', 250' Walk 10 feet (QC): 5 Walk 50 ft with 2 Turns(QC): 4 Walk 150 ft (QC): 4 Gait Persons Needed: 1 Gait Assistive Device: FWW Exercises Standing: Hip Abduction, Hamstring curls, Heel/toe raises, Marching, Mini squats Standing Reps: 15 NuStep Minutes: 15 NuStep Workload: 5 Treatments 900-1000: TF to standing and declines need for BR. Pt amb. in hallway then uses NuStep for 15m at WL 5. Pt completes Standing Ex at //bars. After short RB, pt amb. longer distance in hallway before returning to room to rest in recliner. All needs met, call light in hand. [id number]: TF from Supine in bed to EOB to standing. Pt amb. in hallway ~250' then rests before amb. back to room. Pt resting Supine in bed with all needs met, call light in hand. Assessment Current Status: Good Progress Pt needs occasional RB for fatigue. Pt needs a little extra time to complete tasks as he needs to position Prosthetics michael. for transfers. PT Short Term Goals Short Term Goals Time Frame: Apr 30, 2021 Roll Left & Right: 6 Sit to lyin ([place]) Lying to sitting on side of be: 3 (Trent) Sit to stand: 3 (Trent) Chair/gej-my-pfpnq transfer: 3 (Trent) Walk 10 feet: 3 (Trent) PT Prison Goals [facility] Goals PT Prison Goals Time Frame: May 14, 2021 Roll Left & Right (QC): 6 Sit to Lying (QC): 4 Lying-Sitting on Side/Bed(QC): 4 Sit to Stand (QC): 4 Chair/Wep-yr-Fnhiy Xfer(QC): 4 Toilet Transfer (QC): 4 Car Transfer (QC): 4 Does the Patient Walk: Yes Walk 10 feet (QC): 4 Walk 50ft with 2 Turns (QC): 4 Walk 150 ft (QC): 88 Walking 10ft on Uneven Surface: 3 1 Step (curb) (QC): 4 4 Steps (QC): 88 12 Steps (QC): 88 Picking up an Object (QC): 88 Wheel 50 feet with 2 turns (QC: 9 Wheel 150 feet: 9 PT Plan Problem List Problem List: Activity Tolerance Treatment/Plan Treatment Plan: Continue Plan of Care Treatment Plan: Bed Mobility, Education, Functional Activity Marc, Functional Strength, Group Therapy, Gait, Safety, Therapeutic Exercise, Transfers Treatment Duration: May 14, 2021 Frequency: At least 5 of 7 days/Wk (IRF) Estimated Hrs Per Day: 1.5 hours per day Patient and/or Family Agrees t: Yes Safety Risks/Education Patient Education: Transfer Techniques Teaching Recipient: Patient Teaching Methods: Discussion Response to Teaching: Verbalize Understanding Time/GCodes Time In: 900 Time Out: 1000 Total Billed Treatment Time: 60 Total Billed Treatment 900-1000: 1, GT (20m), EX x2 (30m) & FA (10m) [id number]: 1, GT (20m) & FA (10m) ROBI DANIEL EMBEDDED PROCESSOR May 01, 2021 09:59
[2021-05-01 19:40] VITALS: BP 91/51
[2021-05-02] MEDS: CATHETER FLUSH 10 ML SYR IV SCH ×3 (06:06→21:22)
--- NOTE | 2021-05-02 07:20 | Occupational Ther Daily Note ---
OT Current Status-Daily Note Subjective Pt sitting in chair, alert. No c/o/pain. Pt. agrees to therapy. Mental Status/Objective Patient Orientation: Person, Place, Time, Situation Attachments: Other-See Comments (sacral lumbar orthosis, IV) ADL-Treatment Pt was able to place and use urinal while seated in chair twice, assist given to empty. After completing breakfast independently, pt squat pivot to w/c SBA. Pt propelled w/c to bathroom sink and set brakes, independently. Pt performed oral care and hygiene/grooming seated in w/c at sink independently. Pt propelled to chair in room, squat pivot to chair SBA. After session, pt sitting in chair with call light/phone within reach. All needs met in room. Therapy Code Descriptions/Definitions Functional [place] Measure: 0=Not Assessed/NA 4=Minimal Assistance 1=Total Assistance 5=Supervision or Setup 2=Maximal Assistance 6=Modified [place] 3=Moderate Assistance 7=Complete IndependenceSCALE: Activities may be completed with or without assistive devices. 2-Txpcigpfvb-yhbfivo completes the activity by him/herself with no assistance from a helper. 5-Set-up or Clean-up Assistance-helper sets up or cleans up; patient completes activity. [place] assists only prior to or following the activity. 4-Supervision or Touching Assistance-helper provides verbal cues and/or touching/steadying and/or contact guard assistance as patient completes activity. Assistance may be provided throughout the activity or intermittently. 3-Partial/Moderate Assistance-helper does LESS THAN HALF the effort. [place] lifts, holds or supports trunk or limbs, but provides less than half the effort. 2-Substantial/Maximal Assistance-helper does MORE THAN HALF the effort. [place] lifts or holds trunk or limbs and provides more than half the effort. 0-Upucbvcsf-wikhuz does ALL the effort. Patient does none of the effort to complete the activity. Or, the assistance of 2 or more helpers is required for the patient to complete the activity. If activity was not attempted, code reason: 7-Patient Refused. 9-Not Applicable-not attempted and the patient did not perform the activity before the current illness, exacerbation or injury. 10-Not Attempted due to Environmental Limitations-(lack of equipment, weather restraints, etc.). 88-Not Attempted due to Medical Conditions or Safety Concerns. Eating (QC): 6 (Pt able to feed self using regular silverware.) Oral Hygiene (QC): 6 (Pt able to complete brushing teeth and clean up independently.) OT Short Term Goals Short Term Goals Time Frame: May 07, 2021 Eatin Oral hygiene: 6 Toileting hygiene: 3 Shower/bathe self: 3 Upper body dressin Lower body dressin Putting on/taking off footwear: 3 OT Technical Account Executive Goals Technical Account Executive Goals Time Frame: May 17, 2021 Eating (QC): 6 Oral Hygiene (QC): 6 Toileting Hygiene (QC): 3 (Assist only with allie care due to not having bidet. Pt indep with clothing management. ) Shower/Bathe Self (QC): 4 Upper Body Dressing (QC): 5 Lower Body Dressing (QC): 5 On/Off Footwear (QC): 5 1=Demonstrate adherence to instructed precautions during ADL tasks. 2=Patient will verbalize/demonstrate understanding of assistive devices/modifications for ADL. 3=Patient will improve strength/tolerance for activity to enable patient to perform ADL's. OT Education/Plan Problem List/Assessment Assessment: Impaired Self-Care Skills Discharge Recommendations Plan/Recommendations: Continue POC Treatment Plan/Plan of Care Patient would benefit from OT for education, treatment and training to promote independence in ADL's, mobility, safety and/or upper extremity function for ADL's. Plan of Care: ADL Retraining, Functional Mobility, Group Exercise/Act as Ind, Orthotic Fitting/Training, UE Funct Exercise/Act, W/C Management Training Treatment Duration: May 17, 2021 Frequency: At least 5 of 7 days/Wk (IRF) Estimated Hrs Per Day: 1.5 hours per day Agreement: Yes Rehab Potential: Fair Time/GCodes Start Time: 07:00 Stop Time: 08:00 Total Time Billed (hr/min): 60 Billed Treatment Time 1 Visit- ADL 4 (60 min) LONA ANDREWS May 02, 2021 07:20
[2021-05-02 08:00] VITALS: BP 103/55
[2021-05-02] MEDS: TAMSULOSIN 0.4 MG (FLOMAX) CAP PO SCH (08:40)
[2021-05-02] MEDS: DOCUSATE SODIUM 100 MG (COLACE) CAP PO SCH ×2 (08:41→21:22)
[2021-05-02] MEDS: SENNA W/DOCUSATE (SENOKOT S) TABLET PO SCH ×2 (08:41→21:22)
[2021-05-02] MEDS: polyethylene glycoL POWDER 17 GM (MIRALAX) PACK PO SCH ×2 (08:41→21:22)
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
--- NOTE | 2021-05-02 11:59 | Physical Therapy Daily Note ---
PT Daily Note-Current Subjective Pt sitting in recliner upon arrival. Pt declines need for BR and agrees to PT. Pain Location: No Pain Reported Mental Status Patient Orientation: Person, Place, Time, Situation Attachments: Other-See Comments (TLSO Brace) Transfers SCALE: Activities may be completed with or without assistive devices. 2-Cqrflkwxde-tivgleu completes the activity by him/herself with no assistance from a helper. 5-Set-up or Clean-up Assistance-helper sets up or cleans up; patient completes activity. [place] assists only prior to or following the activity. 4-Supervision or Touching Assistance-helper provides verbal cues and/or touching/steadying and/or contact guard assistance as patient completes a ctivity. Assistance may be provided throughout the activity or intermittently. 3-Partial/Moderate Assistance-helper does LESS THAN HALF the effort. [place] lifts, holds or supports trunk or limbs, but provides less than half the effort. 2-Substantial/Maximal Assistance-helper does MORE THAN HALF the effort. [place] lifts or holds trunk or limbs and provides more than half the effort. 3-Guilyejhu-lqahiy does ALL the effort. Patient does none of the effort to complete the activity. Or, the assistance of 2 or more helpers is required for the patient to complete the activity. If activity was not attempted, code reason: 7-Patient Refused. 9-Not Applicable-not attempted and the patient did not perform the activity before the current illness, exacerbation or injury. 10-Not Attempted due to Environmental Limitations-(lack of equipment, weather restraints, etc.). 88-Not Attempted due to Medical Conditions or Safety Concerns. Sit to Stand (QC): 4 Weight Bearing Full Weight Bearing Full Weight Bearing Gait Training Does the Patient Walk?: Yes Distance: 250' x2 Walk 10 feet (QC): 5 Walk 50 ft with 2 Turns(QC): 5 Walk 150 ft (QC): 5 Gait Persons Needed: 1 Gait Assistive Device: FWW Occasional RB needed for fatigue. Wheelchair Training Does the Pt Use a Wheelchair?: No Exercises Standing: Hip Abduction, Heel/toe raises, Marching, Mini squats, Sit to Stand (5 reps) Standing Reps: 15 NuStep Minutes: 15 NuStep Workload: 5 Treatments TF to standing and amb. in hallway. Pt returns to Therapy Gym to use NuStep for 15m at WL 5. Pt takes RB after before completing Standing EX in //bars. Pt takes short RB then returns to room to rest Supine in bed before lunch. All needs met, call light in hand. Assessment Current Status: Good Progress Pt needs a little extra time to position Prosthetics. Pt is improving with transfers and activity tolerance. PT Short Term Goals Short Term Goals Time Frame: Apr 30, 2021 Roll Left & Right: 6 Sit to lyin (Trent) Lying to sitting on side of be: 3 (Trent) Sit to stand: 3 (Trent) Chair/nth-rc-gihpa transfer: 3 (Trent) Walk 10 feet: 3 (Trent) PT Cleaner Goals [facility] Goals PT [facility] Goals Time Frame: May 14, 2021 Roll Left & Right (QC): 6 Sit to Lying (QC): 4 Lying-Sitting on Side/Bed(QC): 4 Sit to Stand (QC): 4 Chair/Svw-ao-Hjgwx Xfer(QC): 4 Toilet Transfer (QC): 4 Car Transfer (QC): 4 Does the Patient Walk: Yes Walk 10 feet (QC): 4 Walk 50ft with 2 Turns (QC): 4 Walk 150 ft (QC): 88 Walking 10ft on Uneven Surface: 3 1 Step (curb) (QC): 4 4 Steps (QC): 88 12 Steps (QC): 88 Picking up an Object (QC): 88 Wheel 50 feet with 2 turns (QC: 9 Wheel 150 feet: 9 PT Plan Problem List Problem List: Activity Tolerance Treatment/Plan Treatment Plan: Continue Plan of Care Treatment Plan: Bed Mobility, Education, Functional Activity Marc, Functional Strength, Group Therapy, Gait, Safety, Therapeutic Exercise, Transfers Treatment Duration: May 14, 2021 Frequency: At least 5 of 7 days/Wk (IRF) Estimated Hrs Per Day: 1.5 hours per day Patient and/or Family Agrees t: Yes Time/GCodes Time In: 1000 Time Out: 1100 Total Billed Treatment Time: 60 Total Billed Treatment 1, GT x2 (25m) & EX x2 (35m) ROBI DANIEL PRIVATE INVESTIGATOR SURVEILLANCE May 02, 2021 11:59
--- NOTE | 2021-05-02 13:33 | Occupational Ther Daily Note ---
OT Current Status-Daily Note Subjective Pt sitting supine HOB raised, alert. Reported pain 7/10 to Nrsg. Pain medication administered. Pt. agrees to therapy. Mental Status/Objective Patient Orientation: Person, Place, Time, Situation Attachments: Other-See Comments (sacral lumbar orthosis, B forearm orthosis, IV) ADL-Treatment Pt using urinal, urinal spilled and pt requires change of lower body clothing. Pt doffed pants independently while supine in bed. Supine to EOB, independent with HOB elevated. Pt sitting EOB pt able to thread feet into pants by self and assist to hike pants over hips due to B UE orthotics. Pt required Min A donning sacral lumbar orthosis. Therapy Code Descriptions/Definitions Functional [place] Measure: 0=Not Assessed/NA 4=Minimal Assistance 1=Total Assistance 5=Supervision or Setup 2=Maximal Assistance 6=Modified [place] 3=Moderate Assistance 7=Complete IndependenceSCALE: Activities may be completed with or without assistive devices. 7-Kzzgfkqqlb-xkxbvjk completes the activity by him/herself with no assistance from a helper. 5-Set-up or Clean-up Assistance-helper sets up or cleans up; patient completes activity. [place] assists only prior to or following the activity. 4-Supervision or Touching Assistance-helper provides verbal cues and/or touching/steadying and/or contact guard assistance as patient completes activity. Assistance may be provided throughout the activity or intermittently. 3-Partial/Moderate Assistance-helper does LESS THAN HALF the effort. [place] lifts, holds or supports trunk or limbs, but provides less than half the effort. 2-Substantial/Maximal Assistance-helper does MORE THAN HALF the effort. [place] lifts or holds trunk or limbs and provides more than half the effort. 0-Tzxpanvip-jemmam does ALL the effort. Patient does none of the effort to complete the activity. Or, the assistance of 2 or more helpers is required for the patient to complete the activity. If activity was not attempted, code reason: 7-Patient Refused. 9-Not Applicable-not attempted and the patient did not perform the activity before the current illness, exacerbation or injury. 10-Not Attempted due to Environmental Limitations-(lack of equipment, weather restraints, etc.). 88-Not Attempted due to Medical Conditions or Safety Concerns. Lower Body Dressing (QC): 3 (Min A ) Pt had difficulty in LB dressing task of donning pants due to L forearm orthosis not working properly. Other Treatment Pt transferred EOB to [facility], ambulated to therapy room [facility]. Pt participated in dynamic standing balance activity of mederos bag toss. Pt grasped bags from different heights and tossed them across room demonstrating bilateral integration and coordination while standing at W with SBA. Pt stand->sit using FWW for stabilization. Pt grasped mederos bags and tossed into [facility] basket using both arms while seated. Pt sit->stand using FWW for stabilization SBA, ambulated back to room [facility]. After session, pt seated in chair with call light/phone within reach. All needs met in room. OT Short Term Goals Short Term Goals Time Frame: May 07, 2021 Eatin Oral hygiene: 6 Toileting hygiene: 3 Shower/bathe self: 3 Upper body dressin Lower body dressin Putting on/taking off footwear: 3 OT Civil Celebrant Goals Civil Celebrant Goals Time Frame: May 17, 2021 Eating (QC): 6 Oral Hygiene (QC): 6 Toileting Hygiene (QC): 3 (Assist only with allie care due to not having bidet. Pt indep with clothing management. ) Shower/Bathe Self (QC): 4 Upper Body Dressing (QC): 5 Lower Body Dressing (QC): 5 On/Off Footwear (QC): 5 1=Demonstrate adherence to instructed precautions during ADL tasks. 2=Patient will verbalize/demonstrate understanding of assistive devices/modifications for ADL. 3=Patient will improve strength/tolerance for activity to enable patient to perform ADL's. OT Education/Plan Problem List/Assessment Assessment: Impaired Coordination, Impaired Funct Balance, Impaired Self-Care Skills, Restricted Funct UE ROM Discharge Recommendations Plan/Recommendations: Continue POC Treatment Plan/Plan of Care Patient would benefit from OT for education, treatment and training to promote independence in ADL's, mobility, safety and/or upper extremity function for ADL's. Plan of Care: ADL Retraining, Functional Mobility, Group Exercise/Act as Ind, Orthotic Fitting/Training, UE Funct Exercise/Act, W/C Management Training Treatment Duration: May 17, 2021 Frequency: At least 5 of 7 days/Wk (IRF) Estimated Hrs Per Day: 1.5 hours per day Agreement: Yes Rehab Potential: Fair Time/GCodes Start Time: 13:00 Stop Time: 13:30 Total Time Billed (hr/min): 30 Billed Treatment Time 1 Visit- ADL (15 min) FA (15 min) LONA ANDREWS May 02, 2021 13:33
--- NOTE | 2021-05-02 15:04 | Physical Therapy Daily Note ---
PT Daily Note-Current Subjective Pt sitting in recliner upon arrival. Pt agrees to PT. Pain Location: No Pain Reported Mental Status Patient Orientation: Person, Place, Time, Situation Attachments: Other-See Comments (TLSO Brace) Transfers SCALE: Activities may be completed with or without assistive devices. 0-Xtpszaxrjv-gmpzdmj completes the activity by him/herself with no assistance from a helper. 5-Set-up or Clean-up Assistance-helper sets up or cleans up; patient completes activity. [place] assists only prior to or following the activity. 4-Supervision or Touching Assistance-helper provides verbal cues and/or touching/steadying and/or contact guard assistance as patient completes activity. Assistance may be provided throughout the activity or intermittently. 3-Partial/Moderate Assistance-helper does LESS THAN HALF the effort. [place] lifts, holds or supports trunk or limbs, but provides less than half the effort. 2-Substantial/Maximal Assistance-helper does MORE THAN HALF the effort. [place] lifts or holds trunk or limbs and provides more than half the effort. 8-Kxrqhoyud-zxdhbx does ALL the effort. Patient does none of the effort to complete the activity. Or, the assistance of 2 or more helpers is required for the patient to complete the activity. If activity was not attempted, code reason: 7-Patient Refused. 9-Not Applicable-not attempted and the patient did not perform the activity before the current illness, exacerbation or injury. 10-Not Attempted due to Environmental Limitations-(lack of equipment, weather restraints, etc.). 88-Not Attempted due to Medical Conditions or Safety Concerns. Sit to Stand (QC): 4 Weight Bearing Full Weight Bearing Full Weight Bearing Gait Training Does the Patient Walk?: Yes Distance: 250' x2 Walk 10 feet (QC): 5 Walk 50 ft with 2 Turns(QC): 5 Walk 150 ft (QC): 5 Gait Persons Needed: 1 Gait Assistive Device: FWW Wheelchair Training Does the Pt Use a Wheelchair?: No Treatments TF to standing and declines need for BR. Pt amb. in hallway, taking RB half way for fatigue and to adjust UE Prosthetics. Pt amb. back to room to rest at end of tx. All needs met, call light in hand. Assessment Current Status: Good Progress Pt is improving with independence of transfers and ambulation. PT Short Term Goals Short Term Goals Time Frame: Apr 30, 2021 Roll Left & Right: 6 Sit to lyin (Trent) Lying to sitting on side of be: 3 (Trent) Sit to stand: 3 (Trent) Chair/gth-bs-uuzjh transfer: 3 (Trent) Walk 10 feet: 3 (Trent) PT Pipe Fitter Marine Goals [facility] Goals PT Pipe Fitter Marine Goals Time Frame: May 14, 2021 Roll Left & Right (QC): 6 Sit to Lying (QC): 4 Lying-Sitting on Side/Bed(QC): 4 Sit to Stand (QC): 4 Chair/Xoa-dz-Ezypb Xfer(QC): 4 Toilet Transfer (QC): 4 Car Transfer (QC): 4 Does the Patient Walk: Yes Walk 10 feet (QC): 4 Walk 50ft with 2 Turns (QC): 4 Walk 150 ft (QC): 88 Walking 10ft on Uneven Surface: 3 1 Step (curb) (QC): 4 4 Steps (QC): 88 12 Steps (QC): 88 Picking up an Object (QC): 88 Wheel 50 feet with 2 turns (QC: 9 Wheel 150 feet: 9 PT Plan Problem List Problem List: Activity Tolerance Treatment/Plan Treatment Plan: Continue Plan of Care Treatment Plan: Bed Mobility, Education, Functional Activity Marc, Functional Strength, Group Therapy, Gait, Safety, Therapeutic Exercise, Transfers Treatment Duration: May 14, 2021 Frequency: At least 5 of 7 days/Wk (IRF) Estimated Hrs Per Day: 1.5 hours per day Patient and/or Family Agrees t: Yes Safety Risks/Education Patient Education: Gait Training, Transfer Techniques, Correct Positioning Teaching Recipient: Patient Teaching Methods: Discussion Response to Teaching: Verbalize Understanding Time/GCodes Time In: 1400 Time Out: 1430 Total Billed Treatment Time: 30 Total Billed Treatment 1, GT x2 (30m) ROBI DANIEL EMBRYOLOGY PROFESSOR May 02, 2021 15:04
[2021-05-02] MEDS: DOCUSATE SODIUM 10 MG/ML 10 ML UDC (COLACE) EACH EAR SCH ×2 (18:39→19:50)
[2021-05-02 20:00] VITALS: BP 92/56
[2021-05-03] MEDS: CATHETER FLUSH 10 ML SYR IV SCH ×3 (06:37→21:37)
[2021-05-03 07:55] VITALS: BP 102/60
[2021-05-03] MEDS: TAMSULOSIN 0.4 MG (FLOMAX) CAP PO SCH (08:18)
[2021-05-03] MEDS: polyethylene glycoL POWDER 17 GM (MIRALAX) PACK PO SCH ×2 (08:18→21:37)
--- NOTE | 2021-05-03 08:53 | Occupational Ther Daily Note ---
OT Current Status-Daily Note Subjective Pt sitting in recliner. No c/o pain. Pt alert and agrees to therapy. Mental Status/Objective Patient Orientation: Person, Place, Time, Situation Attachments: Other-See Comments (sacral lumbar orthosis, IV, B forearm orthosis) ADL-Treatment Pt agrees to shower. Pt sit->stand using FWW for stability. Pt ambulated to toilet SBA, stand->sit on BSC on toilet CGA. Assist given in cleansing buttock after completing toileting. Sit-> stand CGA. Pt transferred to shower bench using FWW and grab bars for stabilization CGA. All incisions and IV were covered. Sitting on shower bench throughout shower, pt cleansed all areas of body by sitting on washcloths (soap applied before sitting), reaching up with UE stump to position hand held shower on suarez, placing washcloth on floor and using feet to manipulate cloth to wash lower legs and feet. After session, pt lying in bed with call light/phone in reach. All needs met in room. Therapy Code Descriptions/Definitions Functional [place] Measure: 0=Not Assessed/NA 4=Minimal Assistance 1=Total Assistance 5=Supervision or Setup 2=Maximal Assistance 6=Modified [place] 3=Moderate Assistance 7=Complete IndependenceSCALE: Activities may be completed with or without assistive devices. 6-Xrzqduydto-cjxolno completes the activity by him/herself with no assistance from a helper. 5-Set-up or Clean-up Assistance-helper sets up or cleans up; patient completes activity. [place] assists only prior to or following the activity. 4-Supervision or Touching Assistance-helper provides verbal cues and/or touching/steadying and/or contact guard assistance as patient completes activity. Assistance may be provided throughout the activity or intermittently. 3-Partial/Moderate Assistance-helper does LESS THAN HALF the effort. [place] lifts, holds or supports trunk or limbs, but provides less than half the effort. 2-Substantial/Maximal Assistance-helper does MORE THAN HALF the effort. [place] lifts or holds trunk or limbs and provides more than half the effort. 8-Teaidwtws-bjiwxp does ALL the effort. Patient does none of the effort to complete the activity. Or, the assistance of 2 or more helpers is required for the patient to complete the activity. If activity was not attempted, code reason: 7-Patient Refused. 9-Not Applicable-not attempted and the patient did not perform the activity before the current illness, exacerbation or injury. 10-Not Attempted due to Environmental Limitations-(lack of equipment, weather restraints, etc.). 88-Not Attempted due to Medical Conditions or Safety Concerns. Eating (QC): 6 (Independent in set up and self feeding, uses regular silverware.) Bathing Location: L Arm, R Arm, L Upper Leg, R Upper Leg, L Lower Leg (including foot), R Lower Leg (including foot), Chest, Abdomen, Buttocks, Perineal Area Shower/Bathe Self (QC): 5 Upper Body Dressing (QC): 5 (Set up for UB dressing of shirt and orthosis.) Lower Body Dressing (QC): 3 (SBA th thread pants over ankles, Min A to hike pants over hips. ) On/Off Footwear: 5 (Set up to don socks while seated EOB using sock aide.) Toileting Hygiene (QC): 3 (Min A cleaning after toileting) Toilet Transfer (QC): 4 (CGA to transfer using FWW for stabilization) OT Short Term Goals Short Term Goals Time Frame: May 07, 2021 Eatin Oral hygiene: 6 Toileting hygiene: 3 Shower/bathe self: 3 Upper body dressin Lower body dressin Putting on/taking off footwear: 3 OT Stringed Instrument Repairer Goals Stringed Instrument Repairer Goals Time Frame: May 17, 2021 Eating (QC): 6 Oral Hygiene (QC): 6 Toileting Hygiene (QC): 3 (Assist only with allie care due to not having bidet. Pt indep with clothing management. ) Shower/Bathe Self (QC): 4 Upper Body Dressing (QC): 5 Lower Body Dressing (QC): 5 On/Off Footwear (QC): 5 1=Demonstrate adherence to instructed precautions during ADL tasks. 2=Patient will verbalize/demonstrate understanding of assistive devices/modifications for ADL. 3=Patient will improve strength/tolerance for activity to enable patient to perform ADL's. OT Education/Plan Problem List/Assessment Assessment: Impaired Self-Care Skills, Restricted Funct UE ROM Discharge Recommendations Plan/Recommendations: Continue POC Treatment Plan/Plan of Care Patient would benefit from OT for education, treatment and training to promote independence in ADL's, mobility, safety and/or upper extremity function for ADL's. Plan of Care: ADL Retraining, Functional Mobility, Group Exercise/Act as Ind, Orthotic Fitting/Training, UE Funct Exercise/Act, W/C Management Training Treatment Duration: May 17, 2021 Frequency: At least 5 of 7 days/Wk (IRF) Estimated Hrs Per Day: 1.5 hours per day Agreement: Yes Rehab Potential: Fair Time/GCodes Start Time: 07:30 Stop Time: 09:00 Total Time Billed (hr/min): 90 Billed Treatment Time 1 Visit- ADL 6 (90 min) LONA ANDREWS May 03, 2021 08:53
[2021-05-03] MEDS: DOCUSATE SODIUM 100 MG (COLACE) CAP PO SCH ×2 (09:16→21:37)
[2021-05-03] MEDS: DOCUSATE SODIUM 10 MG/ML 10 ML UDC (COLACE) EACH EAR SCH ×2 (09:16→21:36)
[2021-05-03] MEDS: SENNA W/DOCUSATE (SENOKOT S) TABLET PO SCH ×2 (09:16→21:37)
--- NOTE | 2021-05-03 11:01 | Physical Therapy Daily Note ---
PT Daily Note-Current Subjective Patient in recliner pre tx, agrees to PT, has unrated low back pain. Appearance Patient in recliner post tx with nurse call, phone, tray, all needs met. Mental Status Patient Orientation: Person, Place, Situation, Normal For Age back brace, bilateral prosthetic arms Transfers SCALE: Activities may be completed with or without assistive devices. 8-Ehxrusfkrh-pclmxte completes the activity by him/herself with no assistance from a helper. 5-Set-up or Clean-up Assistance-helper sets up or cleans up; patient completes activity. [place] assists only prior to or following the activity. 4-Supervision or Touching Assistance-helper provides verbal cues and/or touching/steadying and/or contact guard assistance as patient completes activ ity. Assistance may be provided throughout the activity or intermittently. 3-Partial/Moderate Assistance-helper does LESS THAN HALF the effort. [place] lifts, holds or supports trunk or limbs, but provides less than half the effort. 2-Substantial/Maximal Assistance-helper does MORE THAN HALF the effort. [place] lifts or holds trunk or limbs and provides more than half the effort. 8-Qwlraxxfx-mjjvnc does ALL the effort. Patient does none of the effort to complete the activity. Or, the assistance of 2 or more helpers is required for the patient to complete the activity. If activity was not attempted, code reason: 7-Patient Refused. 9-Not Applicable-not attempted and the patient did not perform the activity before the current illness, exacerbation or injury. 10-Not Attempted due to Environmental Limitations-(lack of equipment, weather restraints, etc.). 88-Not Attempted due to Medical Conditions or Safety Concerns. Sit to Stand (QC): 4 Chair/Hbz-bd-Idptz Xfer(QC): 4 Weight Bearing Full Weight Bearing Full Weight Bearing Gait Training Distance: 250', 120' Walk 10 feet (QC): 4 Walk 50 ft with 2 Turns(QC): 4 Walk 150 ft (QC): 4 Gait Persons Needed: 1 Gait Assistive Device: FWW Slow ambulation, weak hip musculature, left knee hyperextension. Patient is mostly SBA/CGA but he did have one fairly significant LOB but only because his right prosthetic arm lost its terminal make up operator on the walker. Exercises Standing: Heel/toe raises, Marching, Mini squats Standing Reps: 20 LAQ alternating for 5 min with 2# ankle weights NuStep Minutes: 15 NuStep Workload: 6 Treatments transfers, ambulation, functional strengthening Assessment Current Status: Fair Progress improving endurance and LE strength but still has left knee hyperextension and tredelenburg gait PT Short Term Goals Short Term Goals Time Frame: Apr 30, 2021 Roll Left & Right: 6 Sit to lyin (Trent) Lying to sitting on side of be: 3 (Trent) Sit to stand: 3 (Trent) Chair/jkr-pa-mhubm transfer: 3 (Trent) Walk 10 feet: 3 (Trent) PT Wind Commissioning Technician Goals Wind Commissioning Technician Goals PT Wind Commissioning Technician Goals Time Frame: May 14, 2021 Roll Left & Right (QC): 6 Sit to Lying (QC): 4 Lying-Sitting on Side/Bed(QC): 4 Sit to Stand (QC): 4 Chair/Rkn-xn-Thsxq Xfer(QC): 4 Toilet Transfer (QC): 4 Car Transfer (QC): 4 Does the Patient Walk: Yes Walk 10 feet (QC): 4 Walk 50ft with 2 Turns (QC): 4 Walk 150 ft (QC): 88 Walking 10ft on Uneven Surface: 3 1 Step (curb) (QC): 4 4 Steps (QC): 88 12 Steps (QC): 88 Picking up an Object (QC): 88 Wheel 50 feet with 2 turns (QC: 9 Wheel 150 feet: 9 PT Plan Problem List Problem List: Activity Tolerance, Functional Strength, Safety, Balance, Gait, Transfer, Bed Mobility, ROM Treatment/Plan Treatment Plan: Continue Plan of Care Treatment Plan: Bed Mobility, Education, Functional Activity Marc, Functional Strength, Group Therapy, Gait, Safety, Therapeutic Exercise, Transfers Treatment Duration: May 14, 2021 Frequency: At least 5 of 7 days/Wk (IRF) Estimated Hrs Per Day: 1.5 hours per day Patient and/or Family Agrees t: Yes Safety Risks/Education Patient Education: Gait Training, Transfer Techniques, Correct Positioning, Reviewed Don/Doff Brace, Safety Issues Teaching Recipient: Patient Teaching Methods: Demonstration, Discussion Response to Teaching: Reinforcement Needed Time/GCodes Time In: 1000 Time Out: 1100 Total Billed Treatment Time: 60 Total Billed Treatment 1 visit FA 30' EX 30' RORY FRANCOIS PT May 03, 2021 11:01
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
--- NOTE | 2021-05-03 13:54 | Physical Therapy Daily Note ---
PT Daily Note-Current Subjective Patient in bed pre tx, agrees to PT, voices no complaints of pain. Appearance Patient in bed post tx with nurse call, phone, tray, all needs met. Mental Status Patient Orientation: Normal For Age back brace, bilateral prosthetic arms Transfers SCALE: Activities may be completed with or without assistive devices. 3-Qszxzcncdy-cdbwhhm completes the activity by him/herself with no assistance from a helper. 5-Set-up or Clean-up Assistance-helper sets up or cleans up; patient completes activity. [place] assists only prior to or following the activity. 4-Supervision or Touching Assistance-helper provides verbal cues and/or touching/steadying and/or contact guard assistance as patient completes activity. Assistance may be provided throughout the activity or intermittently. 3-Partial/Moderate Assistance-helper does LESS THAN HALF the effort. [place] lif ts, holds or supports trunk or limbs, but provides less than half the effort. 2-Substantial/Maximal Assistance-helper does MORE THAN HALF the effort. [place] lifts or holds trunk or limbs and provides more than half the effort. 3-Tsrmctkza-urgaxd does ALL the effort. Patient does none of the effort to complete the activity. Or, the assistance of 2 or more helpers is required for the patient to complete the activity. If activity was not attempted, code reason: 7-Patient Refused. 9-Not Applicable-not attempted and the patient did not perform the activity before the current illness, exacerbation or injury. 10-Not Attempted due to Environmental Limitations-(lack of equipment, weather restraints, etc.). 88-Not Attempted due to Medical Conditions or Safety Concerns. Roll Left & Right (QC): 6 Sit to Lying (QC): 6 Lying to Sitting/Side of Bed(Q: 6 Sit to Stand (QC): 4 Chair/Qls-yw-Drxyc Xfer(QC): 4 Weight Bearing Full Weight Bearing Full Weight Bearing Gait Training Distance: 120'x2 Walk 10 feet (QC): 4 Walk 50 ft with 2 Turns(QC): 4 Gait Assistive Device: FWW CGA/SBA, no LOB this time Exercises rlx-ie-wsjczm 3 sets of 10 from slightly elevated therapy table Treatments bed mobility and transfers, ambulation, LE strengthening Assessment Current Status: Fair Progress improving general mobility PT Short Term Goals Short Term Goals Time Frame: Apr 30, 2021 Roll Left & Right: 6 Sit to lyin ([place]) Lying to sitting on side of be: 3 ([place]) Sit to stand: 3 ([place]) Chair/fea-pc-syvqu transfer: 3 ([place]rent) Walk 10 feet: 3 (Trent) PT [employer] Business Representative Goals Skilled Nursing Goals PT Skilled Nursing Goals Time Frame: May 14, 2021 Roll Left & Right (QC): 6 Sit to Lying (QC): 4 Lying-Sitting on Side/Bed(QC): 4 Sit to Stand (QC): 4 Chair/Los-qi-Serem Xfer(QC): 4 Toilet Transfer (QC): 4 Car Transfer (QC): 4 Does the Patient Walk: Yes Walk 10 feet (QC): 4 Walk 50ft with 2 Turns (QC): 4 Walk 150 ft (QC): 88 Walking 10ft on Uneven Surface: 3 1 Step (curb) (QC): 4 4 Steps (QC): 88 12 Steps (QC): 88 Picking up an Object (QC): 88 Wheel 50 feet with 2 turns (QC: 9 Wheel 150 feet: 9 PT Plan Problem List Problem List: Activity Tolerance, Functional Strength, Safety, Balance, Gait, Transfer, Bed Mobility Treatment/Plan Treatment Plan: Continue Plan of Care Treatment Plan: Bed Mobility, Education, Functional Activity Marc, Functional Strength, Group Therapy, Gait, Safety, Therapeutic Exercise, Transfers Treatment Duration: May 14, 2021 Frequency: At least 5 of 7 days/Wk (IRF) Estimated Hrs Per Day: 1.5 hours per day Patient and/or Family Agrees t: Yes Safety Risks/Education Patient Education: Gait Training, Transfer Techniques, Correct Positioning, Reviewed Don/Doff Brace, Safety Issues Teaching Recipient: Patient Teaching Methods: Demonstration, Discussion Response to Teaching: Reinforcement Needed Time/GCodes Time In: 1330 Time Out: 1400 Total Billed Treatment Time: 30 Total Billed Treatment 1 visit EX 10' GT 20' RORY FRANCOIS PT May 03, 2021 13:54
[2021-05-03 20:00] VITALS: BP 109/55
[2021-05-04] MEDS: CATHETER FLUSH 10 ML SYR IV SCH ×3 (05:51→22:50)
[2021-05-04 07:30] VITALS: BP 86/52
[2021-05-04] MEDS: DOCUSATE SODIUM 10 MG/ML 10 ML UDC (COLACE) EACH EAR SCH ×2 (08:34→20:58)
[2021-05-04] MEDS: TAMSULOSIN 0.4 MG (FLOMAX) CAP PO SCH (08:34)
[2021-05-04] MEDS: DOCUSATE SODIUM 100 MG (COLACE) CAP PO SCH ×2 (08:35→20:58)
[2021-05-04] MEDS: polyethylene glycoL POWDER 17 GM (MIRALAX) PACK PO SCH ×2 (08:36→21:00)
[2021-05-04] MEDS: SENNA W/DOCUSATE (SENOKOT S) TABLET PO SCH ×2 (08:36→21:00)
--- NOTE | 2021-05-04 08:43 | Physical Therapy Daily Note ---
PT Daily Note-Current Subjective Pt agreeable. Denies pain. Pain Numeric Pain Scale: 0-No Pain Location: No Pain Reported Mental Status Patient Orientation: Person, Place, Time, Situation Transfers SCALE: Activities may be completed with or without assistive devices. 1-Gayayiruzu-qaihufh completes the activity by him/herself with no assistance from a helper. 5-Set-up or Clean-up Assistance-helper sets up or cleans up; patient completes activity. [place] assists only prior to or following the activity. 4-Supervision or Touching Assistance-helper provides verbal cues and/or touching/steadying and/or contact guard assistance as patient completes activity. Assistance may be provided throughout the activity or intermittently. 3-Partial/Moderate Assistance-helper does LESS THAN HALF the effort. [place] lifts, holds or supports trunk or limbs, but provides less than half the effort. 2-Substantial/Maximal Assistance-helper does MORE THAN HALF the effort. [place] lifts or holds trunk or limbs and provides more than half the effort. 0-Morhgjwvx-uiojwr does ALL the effort. Patient does none of the effort to complete the activity. Or, the assistance of 2 or more helpers is required for the patient to complete the activity. If activity was not attempted, code reason: 7-Patient Refused. 9-Not Applicable-not attempted and the patient did not perform the activity before the current illness, exacerbation or injury. 10-Not Attempted due to Environmental Limitations-(lack of equipment, weather restraints, etc.). 88-Not Attempted due to Medical Conditions or Safety Concerns. Lying to Sitting/Side of Bed(Q: 6 Sit to Stand (QC): 4 Weight Bearing Full Weight Bearing Full Weight Bearing Gait Training Does the Patient Walk?: Yes Distance: 200 Walk 10 feet (QC): 4 Walk 50 ft with 2 Turns(QC): 4 Walk 150 ft (QC): 4 Gait Persons Needed: 1 Gait Assistive Device: FWW SBA-CGA for ambulation with FWW Exercises NuStep Minutes: 15 NuStep Workload: 6 Treatments Ambulation with FWW, NuStep for LE functional strengthening. Up in chair post treatment with all needs met. Assessment Current Status: Good Progress Pt tolerated very well. SBA-CGA with sit<->stand and ambulation, occasionally loses lands resource manager on FWW but no LOB. PT Short Term Goals Short Term Goals Time Frame: Apr 30, 2021 Roll Left & Right: 6 Sit to lyin ([place]) Lying to sitting on side of be: 3 ([place]) Sit to stand: 3 ([place]) Chair/noe-ks-pohkc transfer: 3 ([place]) Walk 10 feet: 3 ([place]) PT Jockey Agent Goals Jockey Agent Goals PT Alf Goals Time Frame: May 14, 2021 Roll Left & Right (QC): 6 Sit to Lying (QC): 4 Lying-Sitting on Side/Bed(QC): 4 Sit to Stand (QC): 4 Chair/Erp-aq-Gfxfs Xfer(QC): 4 Toilet Transfer (QC): 4 Car Transfer (QC): 4 Does the Patient Walk: Yes Walk 10 feet (QC): 4 Walk 50ft with 2 Turns (QC): 4 Walk 150 ft (QC): 88 Walking 10ft on Uneven Surface: 3 1 Step (curb) (QC): 4 4 Steps (QC): 88 12 Steps (QC): 88 Picking up an Object (QC): 88 Wheel 50 feet with 2 turns (QC: 9 Wheel 150 feet: 9 PT Plan Problem List Problem List: Activity Tolerance, Functional Strength, Safety, Balance, Gait, Transfer Treatment/Plan Treatment Plan: Continue Plan of Care Treatment Plan: Bed Mobility, Education, Functional Activity Marc, Functional Strength, Group Therapy, Gait, Safety, Therapeutic Exercise, Transfers Treatment Duration: May 14, 2021 Frequency: At least 5 of 7 days/Wk (IRF) Estimated Hrs Per Day: 1.5 hours per day Patient and/or Family Agrees t: Yes Time/GCodes Time In: 743 Time Out: 813 Total Billed Treatment Time: 30 Total Billed Treatment 1, GT x 15', Ex x 15' CASEY GARCIA DPHilario May 04, 2021 08:43
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
[2021-05-04 19:52] VITALS: BP 97/53
[2021-05-05] MEDS: CATHETER FLUSH 10 ML SYR IV SCH ×3 (06:54→22:38)
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
[2021-05-05 07:21] VITALS: BP 100/55
[2021-05-05] MEDS: DOCUSATE SODIUM 100 MG (COLACE) CAP PO SCH ×2 (08:34→20:34)
[2021-05-05] MEDS: TAMSULOSIN 0.4 MG (FLOMAX) CAP PO SCH (08:34)
[2021-05-05] MEDS: polyethylene glycoL POWDER 17 GM (MIRALAX) PACK PO SCH ×2 (08:34→20:37)
[2021-05-05] MEDS: SENNA W/DOCUSATE (SENOKOT S) TABLET PO SCH ×2 (08:35→20:38)
[2021-05-05] MEDS: DOCUSATE SODIUM 10 MG/ML 10 ML UDC (COLACE) EACH EAR SCH (08:38)
[2021-05-05 19:38] VITALS: BP 101/56
[2021-05-06] MEDS: CATHETER FLUSH 10 ML SYR IV SCH ×3 (07:02→22:47)
[2021-05-06] MEDS: SENNA W/DOCUSATE (SENOKOT S) TABLET PO SCH ×2 (07:54→21:00)
[2021-05-06] MEDS: polyethylene glycoL POWDER 17 GM (MIRALAX) PACK PO SCH ×2 (07:54→21:00)
[2021-05-06 07:58] VITALS: BP 171/72
[2021-05-06 08:01] VITALS: BP 105/61
[2021-05-06] MEDS: DOCUSATE SODIUM 100 MG (COLACE) CAP PO SCH ×2 (08:07→21:00)
[2021-05-06] MEDS: TAMSULOSIN 0.4 MG (FLOMAX) CAP PO SCH (08:07)
--- NOTE | 2021-05-06 09:59 | Occupational Ther Daily Note ---
OT Current Status-Daily Note Subjective Pt laying supine in bed with HOB raised. Pt alert, no c/o pain. Pt agrees to therapy. Mental Status/Objective Patient Orientation: Person, Place, Time, Situation Attachments: Other-See Comments (sacral lumbar orthosis, IV, B forearm orthosis) ADL-Treatment Pt eating breakfast. Pt agrees to shower. Pt sit->stand using FWW for stability. Pt ambulated to toilet SBA, stand->sit on BSC on toilet CGA. Assist given in cleansing buttock after completing toileting. Sit-> stand CGA. Pt transferred to shower bench using FWW and grab bars for stabilization SBA. All incisions and IV were covered. Sitting on shower bench throughout shower, pt cleansed all areas of body by sitting on washcloths (soap applied before sitting), reaching up with UE stump to position hand held shower on suarez, placing washcloth on floor and using feet to manipulate cloth to wash lower legs and feet. After session, pt lying in bed with call light/phone in reach. All needs met in room. Therapy Code Descriptions/Definitions Functional [place] Measure: 0=Not Assessed/NA 4=Minimal Assistance 1=Total Assistance 5=Supervision or Setup 2=Maximal Assistance 6=Modified [place] 3=Moderate Assistance 7=Complete IndependenceSCALE: Activities may be completed with or without assistive devices. 2-Xqpudlsngp-krnvagj completes the activity by him/herself with no assistance from a helper. 5-Set-up or Clean-up Assistance-helper sets up or cleans up; patient completes activity. [place] assists only prior to or following the activity. 4-Supervision or Touching Assistance-helper provides verbal cues and/or touching/steadying and/or contact guard assistance as patient completes acti vity. Assistance may be provided throughout the activity or intermittently. 3-Partial/Moderate Assistance-helper does LESS THAN HALF the effort. [place] lifts, holds or supports trunk or limbs, but provides less than half the effort. 2-Substantial/Maximal Assistance-helper does MORE THAN HALF the effort. [place] lifts or holds trunk or limbs and provides more than half the effort. 2-Cgihmfwxh-djgczd does ALL the effort. Patient does none of the effort to complete the activity. Or, the assistance of 2 or more helpers is required for the patient to complete the activity. If activity was not attempted, code reason: 7-Patient Refused. 9-Not Applicable-not attempted and the patient did not perform the activity before the current illness, exacerbation or injury. 10-Not Attempted due to Environmental Limitations-(lack of equipment, weather restraints, etc.). 88-Not Attempted due to Medical Conditions or Safety Concerns. Eating (QC): 6 (Pt opens containers and packages by self, uses regular silverware Independently. ) Oral Hygiene (QC): 6 (Pt completes own set up independently while seated in w/c.) Bathing Location: L Arm, R Arm, L Upper Leg, R Upper Leg, L Lower Leg (including foot), R Lower Leg (including foot), Chest, Abdomen, Buttocks, Perineal Area Shower/Bathe Self (QC): 5 (Pt washes self with set up on shower bench.) Upper Body Dressing (QC): 5 (Set up to don/doff shirt and forearm orthosis) Lower Body Dressing (QC): 5 (Set up. Pt don/doff pants, brief and belt supine in bed.) On/Off Footwear: 5 (Assist to gather supplies then pt was able to place socks on sock aide then use to don socks. Pt uses opposite foot to pull off socks while seated EOB.) Toilet Transfer (QC): 4 (CGA for sit to stand. Demonstrates increased control for stand to sit.) OT Short Term Goals Short Term Goals Time Frame: May 07, 2021 Eatin Oral hygiene: 6 Toileting hygiene: 3 Shower/bathe self: 3 Upper body dressin Lower body dressin Putting on/taking off footwear: 3 OT Heel Buffer Goals Detention Goals Time Frame: May 17, 2021 Eating (QC): 6 Oral Hygiene (QC): 6 Toileting Hygiene (QC): 3 (Assist only with allie care due to not having bidet. Pt indep with clothing management. ) Shower/Bathe Self (QC): 4 Upper Body Dressing (QC): 5 Lower Body Dressing (QC): 5 On/Off Footwear (QC): 5 1=Demonstrate adherence to instructed precautions during ADL tasks. 2=Patient will verbalize/demonstrate understanding of assistive devices/modifications for ADL. 3=Patient will improve strength/tolerance for activity to enable patient to perform ADL's. OT Education/Plan Problem List/Assessment Assessment: Impaired Self-Care Skills, Restricted Funct UE ROM Discharge Recommendations Plan/Recommendations: Continue POC Treatment Plan/Plan of Care Patient would benefit from OT for education, treatment and training to promote independence in ADL's, mobility, safety and/or upper extremity function for ADL's. Plan of Care: ADL Retraining, Functional Mobility, Group Exercise/Act as Ind, Orthotic Fitting/Training, UE Funct Exercise/Act, W/C Management Training Treatment Duration: May 17, 2021 Frequency: At least 5 of 7 days/Wk (IRF) Estimated Hrs Per Day: 1.5 hours per day Agreement: Yes Rehab Potential: Fair Time/GCodes Start Time: 07:30 Stop Time: 09:00 Total Time Billed (hr/min): 90 Billed Treatment Time 1 Visit ADL 6 (90 min) LONA ANDREWS May 06, 2021 09:59
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
[2021-05-06] MEDS ORDERED: FLU QUADRIvalent (6 MON+) 60 MCG/0.5 ML (FLULAVAL) IM ONE (11:15)
--- NOTE | 2021-05-06 11:57 | Physical Therapy Daily Note ---
PT Daily Note-Current Subjective Patient in bed pre tx, agrees to PT, voices no complaints of pain. Appearance Patient in bed post tx with nurse call, phone, tray, all needs met. Mental Status Patient Orientation: Person, Place, Situation, Normal For Age back brace and bilateral prosthetic arms Transfers SCALE: Activities may be completed with or without assistive devices. 6-Lyphtvufau-nboutru completes the activity by him/herself with no assistance from a helper. 5-Set-up or Clean-up Assistance-helper sets up or cleans up; patient completes activity. [place] assists only prior to or following the activity. 4-Supervision or Touching Assistance-helper provides verbal cues and/or touching/steadying and/or contact guard assistance as patient completes activity. Assistance may be provided throughout the activity or intermittently. 3-Partial/Moderate Assistance-helper does LESS THAN HALF the effort. [place] lifts, holds or supports trunk or limbs, but provides less than half the effort. 2-Substantial/Maximal Assistance-helper does MORE THAN HALF the effort. [place] lifts or holds trunk or limbs and provides more than half the effort. 0-Ehvdgzqlf-sqvybd does ALL the effort. Patient does none of the effort to complete the activity. Or, the assistance of 2 or more helpers is required for the patient to complete the activity. If activity was not attempted, code reason: 7-Patient Refused. 9-Not Applicable-not attempted and the patient did not perform the activity before the current illness, exacerbation or injury. 10-Not Attempted due to Environmental Limitations-(lack of equipment, weather restraints, etc.). 88-Not Attempted due to Medical Conditions or Safety Concerns. Roll Left & Right (QC): 6 Sit to Lying (QC): 6 Lying to Sitting/Side of Bed(Q: 6 Sit to Stand (QC): 4 Chair/Xqs-ua-Phwsd Xfer(QC): 4 Weight Bearing Full Weight Bearing Full Weight Bearing Gait Training Distance: 300'x2, 120' Walk 10 feet (QC): 4 Walk 50 ft with 2 Turns(QC): 4 Walk 150 ft (QC): 4 Gait Persons Needed: 1 Gait Assistive Device: FWW CGA, slow ambulation, unsteady but no rob LOB, trendelenburg gait, left knee hyperextension Exercises sit to stands from slightly elevated therapy table 3 sets of 10 NuStep Minutes: 15 NuStep Workload: 5 Treatments bed mobility and transfers, ambulation, functional strengthening Assessment Current Status: Poor Progress persisting LE weakness PT Short Term Goals Short Term Goals Time Frame: Apr 30, 2021 Roll Left & Right: 6 Sit to lyin (Trent) Lying to sitting on side of be: 3 (Trent) Sit to stand: 3 (Trent) Chair/dsr-tq-ycjws transfer: 3 (Trent) Walk 10 feet: 3 (Trent) PT Montessori Teacher Goals Montessori Teacher Goals PT [facility] Goals Time Frame: May 14, 2021 Roll Left & Right (QC): 6 Sit to Lying (QC): 4 Lying-Sitting on Side/Bed(QC): 4 Sit to Stand (QC): 4 Chair/Amf-pp-Jeznc Xfer(QC): 4 Toilet Transfer (QC): 4 Car Transfer (QC): 4 Does the Patient Walk: Yes Walk 10 feet (QC): 4 Walk 50ft with 2 Turns (QC): 4 Walk 150 ft (QC): 88 Walking 10ft on Uneven Surface: 3 1 Step (curb) (QC): 4 4 Steps (QC): 88 12 Steps (QC): 88 Picking up an Object (QC): 88 Wheel 50 feet with 2 turns (QC: 9 Wheel 150 feet: 9 PT Plan Problem List Problem List: Activity Tolerance, Functional Strength, Safety, Balance, Gait, Transfer, Bed Mobility, ROM Treatment/Plan Treatment Plan: Continue Plan of Care Treatment Plan: Bed Mobility, Education, Functional Activity Marc, Functional Strength, Group Therapy, Gait, Safety, Therapeutic Exercise, Transfers Treatment Duration: May 14, 2021 Frequency: At least 5 of 7 days/Wk (IRF) Estimated Hrs Per Day: 1.5 hours per day Patient and/or Family Agrees t: Yes Safety Risks/Education Patient Education: Gait Training, Transfer Techniques, Correct Positioning, Reviewed Don/Doff Brace, Safety Issues Teaching Recipient: Patient Teaching Methods: Demonstration, Discussion Response to Teaching: Reinforcement Needed Time/GCodes Time In: 1100 Time Out: 1200 Total Billed Treatment Time: 60 Total Billed Treatment 1visit EX 30' GT 30' RORY FRANCOIS PT May 06, 2021 11:57
--- NOTE | 2021-05-06 14:09 | Progress Note ---
DEEPAK TRAN STUDENT 05/06/21 1409: Progress Note Assessment: Pavel presents to IRF for debility s/p T10-L3 fusion. Difficulty with ambulation/transferring r/t LE weakness/instability. Significant history of BUE amputations with prosthesis. OT: Fair ability to perform hygiene and dressing tasks with min-mod assistance. Fair progress with fair prognosis. PT: Demonstrates unstable gait, no overt loss of balance, BLE weakness, requires walker with moderate assistance with ambulation and transfers. Good progress with fair prognosis. Plan: Discharge to home with home health care 05/09. [facility] needed for PT, OT, wound care. MARTA CAMPBELL DO 05/07/21 0500: Supervisory-Addendum Brief Verification & Attestation Participated in pt care: history, MDM, physical Personally performed: exam, history, MDM, supervision of care Care discussed with: Medical Student Procedures: n/a Results interpretation: Verified all documentation Verification and Attestation of Medical Student E/M Service A medical student performed and documented this service in my presence. I reviewed and verified all information documented by the medical student and made modifications to such information, when appropriate. I personally performed the physical exam and medical decision making. Marta Campbell, May 07, 2021,05:00 DEEPAK TRAN MED STUDENT May 06, 2021 14:09 MARTA CAMPBELL DO May 07, 2021 05:00
--- NOTE | 2021-05-06 14:25 | Physical Therapy Daily Note ---
PT Daily Note-Current Subjective Patient in bed pre tx, agrees to PT, has no complaints of pain. Appearance Patient in recliner post tx with nurse call, phone, tray, all needs met. Mental Status Patient Orientation: Person, Place, Situation, Normal For Age back brace and bilateral prosthetic arms Transfers SCALE: Activities may be completed with or without assistive devices. 9-Yyaqysadbc-blgrxcq completes the activity by him/herself with no assistance from a helper. 5-Set-up or Clean-up Assistance-helper sets up or cleans up; patient completes activity. [place] assists only prior to or following the activity. 4-Supervision or Touching Assistance-helper provides verbal cues and/or touching/steadying and/or contact guard assistance as patient completes activit y. Assistance may be provided throughout the activity or intermittently. 3-Partial/Moderate Assistance-helper does LESS THAN HALF the effort. [place] lifts, holds or supports trunk or limbs, but provides less than half the effort. 2-Substantial/Maximal Assistance-helper does MORE THAN HALF the effort. [place] lifts or holds trunk or limbs and provides more than half the effort. 6-Xmmmsstlv-duszah does ALL the effort. Patient does none of the effort to complete the activity. Or, the assistance of 2 or more helpers is required for the patient to complete the activity. If activity was not attempted, code reason: 7-Patient Refused. 9-Not Applicable-not attempted and the patient did not perform the activity before the current illness, exacerbation or injury. 10-Not Attempted due to Environmental Limitations-(lack of equipment, weather restraints, etc.). 88-Not Attempted due to Medical Conditions or Safety Concerns. Roll Left & Right (QC): 6 Lying to Sitting/Side of Bed(Q: 6 Sit to Stand (QC): 4 Chair/Joj-gj-Xjkyp Xfer(QC): 4 Weight Bearing Full Weight Bearing Full Weight Bearing Gait Training Distance: 120'x2 Walk 10 feet (QC): 4 Walk 50 ft with 2 Turns(QC): 4 Gait Persons Needed: 1 Gait Assistive Device: FWW slow, unsteady, trendelenburg gait and left knee hyperextension Exercises NuStep Minutes: 15 NuStep Workload: 6 Treatments bed mobility and transfers, ambulation, functional strengthening Assessment Current Status: Fair Progress patient very tired after doing NuStep at an increased resistance PT Short Term Goals Short Term Goals Time Frame: Apr 30, 2021 Roll Left & Right: 6 Sit to lyin (Trent) Lying to sitting on side of be: 3 (Trent) Sit to stand: 3 (Trent) Chair/kgk-ai-rzbpf transfer: 3 (Trent) Walk 10 feet: 3 (Trent) PT Longterm Goals Rig Manager Goals PT Rig Manager Goals Time Frame: May 14, 2021 Roll Left & Right (QC): 6 Sit to Lying (QC): 4 Lying-Sitting on Side/Bed(QC): 4 Sit to Stand (QC): 4 Chair/Xsu-wu-Xczdd Xfer(QC): 4 Toilet Transfer (QC): 4 Car Transfer (QC): 4 Does the Patient Walk: Yes Walk 10 feet (QC): 4 Walk 50ft with 2 Turns (QC): 4 Walk 150 ft (QC): 88 Walking 10ft on Uneven Surface: 3 1 Step (curb) (QC): 4 4 Steps (QC): 88 12 Steps (QC): 88 Picking up an Object (QC): 88 Wheel 50 feet with 2 turns (QC: 9 Wheel 150 feet: 9 PT Plan Problem List Problem List: Activity Tolerance, Functional Strength, Safety, Balance, Gait, Transfer, Bed Mobility, ROM Treatment/Plan Treatment Plan: Continue Plan of Care Treatment Plan: Bed Mobility, Education, Functional Activity Marc, Functional Strength, Group Therapy, Gait, Safety, Therapeutic Exercise, Transfers Treatment Duration: May 14, 2021 Frequency: At least 5 of 7 days/Wk (IRF) Estimated Hrs Per Day: 1.5 hours per day Patient and/or Family Agrees t: Yes Safety Risks/Education Patient Education: Gait Training, Transfer Techniques, Correct Positioning, Reviewed Don/Doff Brace, Safety Issues Teaching Recipient: Patient Teaching Methods: Demonstration, Discussion Response to Teaching: Reinforcement Needed Time/GCodes Time In: 1355 Time Out: 1425 Total Billed Treatment Time: 30 Total Billed Treatment 1 visit EX 15' GT 15' RORY FRANCOIS PT May 06, 2021 14:25
[2021-05-06 19:48] VITALS: BP 97/65
[2021-05-07] MEDS: CATHETER FLUSH 10 ML SYR IV SCH ×3 (06:32→21:30)
[2021-05-07 07:50] VITALS: BP 88/67
[2021-05-07] MEDS: TAMSULOSIN 0.4 MG (FLOMAX) CAP PO SCH (08:35)
--- NOTE | 2021-05-07 08:39 | Occupational Ther Daily Note ---
OT Current Status-Daily Note Subjective Pt laying supine with HOB raised. Pt alert, no c/o pain. Pt agrees to therapy. Mental Status/Objective Patient Orientation: Person, Place, Time, Situation Attachments: Other-See Comments (sacral lumbar orthosis, IV, B forearm orthosis) ADL-Treatment Pt declines shower, requests to wait until tomorrow and have nrsg assist if possible before pt is discharged to home. ABREU discussed this with pt to make pt aware that nrsg may not be able to complete. Pt stated that he will feel comfortable completing at home if that is needs to be done. QC"s completed on 05/06/2021 except toileting hygiene. Pt EOB ->chair using FWW for stability SBA. Pt participated in LB dressing/toilet hygiene simulation, being able to thread pants over ankles and hike over hips using yellow theraband and FWW for stabilization x3. Pt chair->FWW SBA, ambulated to bathroom to engage in oral care/grooming sinkside. Pt stand->sit in w/c using FWW for stability to complete ADL task of oral care/grooming. After session, Pt sitting in recliner with call light/phone within reach. All needs met in room. Therapy Code Descriptions/Definitions Functional [place] Measure: 0=Not Assessed/NA 4=Minimal Assistance 1=Total Assistance 5=Supervision or Setup 2=Maximal Assistance 6=Modified [place] 3=Moderate Assistance 7=Complete IndependenceSCALE: Activities may be completed with or without assistive devices. 8-Qukpugajiq-nfmffex completes the activity by him/herself with no assistance from a helper. 5-Set-up or Clean-up Assistance-helper sets up or cleans up; patient completes activity. [place] assists only prior to or following the activity. 4-Supervision or Touching Assistance-helper provides verbal cues and/or touching/steadying and/or contact guard assistance as patient completes activity. Assistance may be provided throughout the activity or intermittently. 3-Partial/Moderate Assistance-helper does LESS THAN HALF the effort. [place] lifts, holds or supports trunk or limbs, but provides less than half the effort. 2-Substantial/Maximal Assistance-helper does MORE THAN HALF the effort. [place] lifts or holds trunk or limbs and provides more than half the effort. 1-Wwvnzthbx-szfthh does ALL the effort. Patient does none of the effort to complete the activity. Or, the assistance of 2 or more helpers is required for the patient to complete the activity. If activity was not attempted, code reason: 7-Patient Refused. 9-Not Applicable-not attempted and the patient did not perform the activity before the current illness, exacerbation or injury. 10-Not Attempted due to Environmental Limitations-(lack of equipment, weather restraints, etc.). 88-Not Attempted due to Medical Conditions or Safety Concerns. Eating (QC): 6 (Pt independent in opening containers, using regular silverware, and completing self feeding.) Oral Hygiene (QC): 6 (Pt independent in setting up and completing oral care.) Shower/Bathe Self (QC): 4 (Per clinical judgement, Pt will require assist in setting up to complete.) Toileting Hygiene (QC): 3 (Per clinical judgement, pt is able to manage clothing by using FWW for stability. Assist is needed to cleanse after BM due to difficulty reaching buttocks. Pt states having bidet on home toilet to cleanse independently.) OT Short Term Goals Short Term Goals Time Frame: May 07, 2021 Eatin Oral hygiene: 6 Toileting hygiene: 3 Shower/bathe self: 3 Upper body dressin Lower body dressin Putting on/taking off footwear: 3 OT [facility] Goals Cafeteria Clerk Goals Time Frame: May 17, 2021 Eating (QC): 6 (met) Oral Hygiene (QC): 6 (met) Toileting Hygiene (QC): 3 (met) Shower/Bathe Self (QC): 4 (met) Upper Body Dressing (QC): 5 (met) Lower Body Dressing (QC): 5 (met) On/Off Footwear (QC): 5 (met) 1=Demonstrate adherence to instructed precautions during ADL tasks. 2=Patient will verbalize/demonstrate understanding of assistive devices/modifications for ADL. 3=Patient will improve strength/tolerance for activity to enable patient to perform ADL's. OT Education/Plan Problem List/Assessment Assessment: Impaired Funct Balance, Impaired Self-Care Skills Discharge Recommendations Plan/Recommendations: Continue POC Treatment Plan/Plan of Care Patient would benefit from OT for education, treatment and training to promote independence in ADL's, mobility, safety and/or upper extremity function for ADL's. Plan of Care: ADL Retraining, Functional Mobility, Group Exercise/Act as Ind, Orthotic Fitting/Training, UE Funct Exercise/Act, W/C Management Training Treatment Duration: May 17, 2021 Frequency: At least 5 of 7 days/Wk (IRF) Estimated Hrs Per Day: 1.5 hours per day Agreement: Yes Rehab Potential: Fair Time/GCodes Start Time: 07:30 Stop Time: 08:30 Total Time Billed (hr/min): 60 Billed Treatment Time 1 Visit- ADL 4 (60 min) LONA ANDREWS May 07, 2021 08:39
[2021-05-07 08:41] VITALS: BP 104/71
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
[2021-05-07] MEDS: polyethylene glycoL POWDER 17 GM (MIRALAX) PACK PO SCH ×2 (09:30→21:00)
[2021-05-07] MEDS: SENNA W/DOCUSATE (SENOKOT S) TABLET PO SCH ×2 (09:30→21:00)
[2021-05-07] MEDS: DOCUSATE SODIUM 100 MG (COLACE) CAP PO SCH ×2 (09:30→21:00)
--- NOTE | 2021-05-07 10:59 | Physical Therapy Daily Note ---
PT Daily Note-Current Subjective Pt sitting in recliner upon arrival. Pt agrees to PT for QC scoring for anticipated d/c tomorrow (05/08). Pain Location: No Pain Reported Mental Status Patient Orientation: Person, Place, Time, Situation Attachments: Other-See Comments (TLSO Brace) Transfers SCALE: Activities may be completed with or without assistive devices. 9-Fezsnbnfes-ragilql completes the activity by him/herself with no assistance from a helper. 5-Set-up or Clean-up Assistance-helper sets up or cleans up; patient completes activity. [place] assists only prior to or following the activity. 4-Supervision or Touching Assistance-helper provides verbal cues and/or touching/steadying and/or contact guard assistance as patient completes activity. Assistance may be provided throughout the activity or intermittently. 3-Partial/Moderate Assistance-helper does LESS THAN HALF the effort. [place] lifts, holds or supports trunk or limbs, but provides less than half the effort. 2-Substantial/Maximal Assistance-helper does MORE THAN HALF the effort. [place] lifts or holds trunk or limbs and provides more than half the effort. 6-Gyjldhfei-psnrkj does ALL the effort. Patient does none of the effort to complete the activity. Or, the assistance of 2 or more helpers is required for the patient to complete the activity. If activity was not attempted, code reason: 7-Patient Refused. 9-Not Applicable-not attempted and the patient did not perform the activity before the current illness, exacerbation or injury. 10-Not Attempted due to Environmental Limitations-(lack of equipment, weather restraints, etc.). 88-Not Attempted due to Medical Conditions or Safety Concerns. Roll Left & Right (QC): 6 Sit to Lying (QC): 6 Lying to Sitting/Side of Bed(Q: 6 Sit to Stand (QC): 5 Chair/Uzg-ev-Dvooj Xfer(QC): 5 Toilet Transfer (QC): 5 Car Transfer (QC): 5 Weight Bearing Full Weight Bearing Full Weight Bearing Gait Training Does the Patient Walk?: Yes Distance: 250' x2 Walk 10 feet (QC): 5 Walk 50 ft with 2 Turns(QC): 5 Walk 150 ft (QC): 5 Walking 10ft/uneven surface-QC: 5 Gait Persons Needed: 1 Gait Assistive Device: FWW Wheelchair Training Does the Pt Use a Wheelchair?: No Stair Training Stair Training: Handrails/: 2 handrails #of Steps: 1 1 Step (curb) (QC): 5 4 Steps (QC): 7 12 Steps (QC): 7 Stairs: Pattern: Step to Pt didn't feel comfortable to continue and asked to turn around. Pt felt a little dizzy with height increase. Exercises NuStep Minutes: 15 NuStep Workload: 5 Treatments TF to standing and amb. in hallway. Pt completes QC scoring items listed above. Pt uses NuStep for 15m at WL 5 before returning to room to rest at end of tx. All needs met, call light in hand. Assessment Current Status: Good Progress Pt is gaining strength and balance. PT Short Term Goals Short Term Goals Time Frame: Apr 30, 2021 Roll Left & Right: 6 Sit to lyin (Trent) Lying to sitting on side of be: 3 (Trent) Sit to stand: 3 (Trent) Chair/gvz-ak-jqrcj transfer: 3 (Trent) Walk 10 feet: 3 (Trent) PT Marine Architect Goals Nursing Home Goals PT Marine Architect Goals Time Frame: May 14, 2021 Roll Left & Right (QC): 6 Sit to Lying (QC): 4 Lying-Sitting on Side/Bed(QC): 4 Sit to Stand (QC): 4 Chair/Sbk-bc-Gwciv Xfer(QC): 4 Toilet Transfer (QC): 4 Car Transfer (QC): 4 Does the Patient Walk: Yes Walk 10 feet (QC): 4 Walk 50ft with 2 Turns (QC): 4 Walk 150 ft (QC): 88 Walking 10ft on Uneven Surface: 3 1 Step (curb) (QC): 4 4 Steps (QC): 88 12 Steps (QC): 88 Picking up an Object (QC): 88 Wheel 50 feet with 2 turns (QC: 9 Wheel 150 feet: 9 PT Plan Problem List Problem List: Activity Tolerance Treatment/Plan Treatment Plan: Continue Plan of Care Treatment Plan: Bed Mobility, Education, Functional Activity Marc, Functional Strength, Group Therapy, Gait, Safety, Therapeutic Exercise, Transfers Treatment Duration: May 14, 2021 Frequency: At least 5 of 7 days/Wk (IRF) Estimated Hrs Per Day: 1.5 hours per day Patient and/or Family Agrees t: Yes Safety Risks/Education Patient Education: Steps, Correct Positioning Teaching Recipient: Patient Teaching Methods: Discussion Response to Teaching: Verbalize Understanding Time/GCodes Time In: 1000 Time Out: 1100 Total Billed Treatment Time: 60 Total Billed Treatment 1, EX (15m), GT (15m), & FA x2 (30m) ROBI DANIEL CHEMICAL ENGINEERING PROFESSOR May 07, 2021 10:59
--- NOTE | 2021-05-07 13:30 | Occupational Ther Daily Note ---
OT Current Status-Daily Note Subjective Pt sitting EOB, alert. no c/o pain. Pt agrees to therapy. Mental Status/Objective Patient Orientation: Person, Place, Time, Situation Attachments: Other-See Comments (sacral lumbar orthosis, IV, B forearm orthosis) ADL-Treatment Therapy Code Descriptions/Definitions Functional [place] Measure: 0=Not Assessed/NA 4=Minimal Assistance 1=Total Assistance 5=Supervision or Setup 2=Maximal Assistance 6=Modified [place] 3=Moderate Assistance 7=Complete IndependenceSCALE: Activities may be completed with or without assistive devices. 5-Yrcuhtielv-vpyzxfj completes the activity by him/herself with no assistance from a helper. 5-Set-up or Clean-up Assistance-helper sets up or cleans up; patient completes activity. [place] assists only prior to or following the activity. 4-Supervision or Touching Assistance-helper provides verbal cues and/or touching/steadying and/or contact guard assistance as patient completes activity. Assistance may be provided throughout the activity or intermittently. 3-Partial/Moderate Assistance-helper does LESS THAN HALF the effort. [place] lifts, holds or supports trunk or limbs, but provides less than half the effort. 2-Substantial/Maximal Assistance-helper does MORE THAN HALF the effort. [place] lifts or holds trunk or limbs and provides more than half the effort. 9-Gbnppijzm-iirjdi does ALL the effort. Patient does none of the effort to complete the activity. Or, the assistance of 2 or more helpers is required for the patient to complete the activity. If activity was not attempted, code reason: 7-Patient Refused. 9-Not Applicable-not attempted and the patient did not perform the activity before the current illness, exacerbation or injury. 10-Not Attempted due to Environmental Limitations-(lack of equipment, weather restraints, etc.). 88-Not Attempted due to Medical Conditions or Safety Concerns. Other Treatment Pt sit->stand using FWW for stabilization. Pt ambulated to therapy gym CGA. Pt stand->sit in chair CGA using FWW to stabilize. Pt completed B UE activity in sitting to work on B UE ROM, coordination, crossing midline to improve ADL performance. After session, pt left in therapy room with PT. All needs met. OT Short Term Goals Short Term Goals Time Frame: May 07, 2021 Eatin Oral hygiene: 6 Toileting hygiene: 3 Shower/bathe self: 3 Upper body dressin Lower body dressin Putting on/taking off footwear: 3 OT Senior Living Goals Trial Attorney Goals Time Frame: May 17, 2021 Eating (QC): 6 (met) Oral Hygiene (QC): 6 (met) Toileting Hygiene (QC): 3 (met) Shower/Bathe Self (QC): 4 (met) Upper Body Dressing (QC): 5 (met) Lower Body Dressing (QC): 5 (met) On/Off Footwear (QC): 5 (met) 1=Demonstrate adherence to instructed precautions during ADL tasks. 2=Patient will verbalize/demonstrate understanding of assistive devices/modifications for ADL. 3=Patient will improve strength/tolerance for activity to enable patient to perform ADL's. OT Education/Plan Problem List/Assessment Assessment: Impaired Coordination, Impaired Funct Balance, Restricted Funct UE ROM Discharge Recommendations Plan/Recommendations: Continue POC Treatment Plan/Plan of Care Patient would benefit from OT for education, treatment and training to promote independence in ADL's, mobility, safety and/or upper extremity function for ADL's. Plan of Care: ADL Retraining, Functional Mobility, Group Exercise/Act as Ind, Orthotic Fitting/Training, UE Funct Exercise/Act, W/C Management Training Treatment Duration: May 17, 2021 Frequency: At least 5 of 7 days/Wk (IRF) Estimated Hrs Per Day: 1.5 hours per day Agreement: Yes Rehab Potential: Fair Time/GCodes Start Time: 13:00 Stop Time: 13:30 Total Time Billed (hr/min): 30 Billed Treatment Time 1 Visit- FA 2 (30 min) LONA ANDREWS May 07, 2021 13:30
--- NOTE | 2021-05-07 14:30 | Physical Therapy Daily Note ---
PT Daily Note-Current Subjective Pt sitting in chair in Therapy Gym after finishing OT tx. Pt agrees to PT. Pain Numeric Pain Scale: 8 Location: Lower Location Body Site: Back Pain Description: Ache, Tightness Mental Status Patient Orientation: Person, Place, Time, Situation Attachments: Other-See Comments (TLSO brace) Transfers SCALE: Activities may be completed with or without assistive devices. 6-Ubgnzykvhg-zboxngx completes the activity by him/herself with no assistance from a helper. 5-Set-up or Clean-up Assistance-helper sets up or cleans up; patient completes activity. [place] assists only prior to or following the activity. 4-Supervision or Touching Assistance-helper provides verbal cues and/or touching/steadying and/or contact guard assistance as patient completes activity. Assistance may be provided throughout the activity or intermittently. 3-Partial/Moderate Assistance-helper does LESS THAN HALF the effort. [place] lifts, holds or supports trunk or limbs, but provides less than half the effort. 2-Substantial/Maximal Assistance-helper does MORE THAN HALF the effort. [place] lifts or holds trunk or limbs and provides more than half the effort. 8-Vqlgxlyvc-gnclfn does ALL the effort. Patient does none of the effort to complete the activity. Or, the assistance of 2 or more helpers is required for the patient to complete the activity. If activity was not attempted, code reason: 7-Patient Refused. 9-Not Applicable-not attempted and the patient did not perform the activity before the current illness, exacerbation or injury. 10-Not Attempted due to Environmental Limitations-(lack of equipment, weather restraints, etc.). 88-Not Attempted due to Medical Conditions or Safety Concerns. Lying to Sitting/Side of Bed(Q: 6 Weight Bearing Full Weight Bearing Full Weight Bearing Gait Training Does the Patient Walk?: Yes Distance: 500', 100' Walk 10 feet (QC): 5 Walk 50 ft with 2 Turns(QC): 5 Walk 150 ft (QC): 5 Gait Persons Needed: 1 Gait Assistive Device: FWW Wheelchair Training Does the Pt Use a Wheelchair?: No Treatments Pt transfers to standing and amb. in hallway. Pt returns to room reporting LBP. CAPPER MACHINE OPERATOR adjusts FWW, increasing height. Pt amb. again and reports decrease in LBP. Pt returns to bed to rest, all needs met, call light in hand. Assessment Current Status: Good Progress Pt's amb. improves with increase height of FWW. PT Short Term Goals Short Term Goals Time Frame: Apr 30, 2021 Roll Left & Right: 6 Sit to lyin (Trent) Lying to sitting on side of be: 3 (Trent) Sit to stand: 3 (Trent) Chair/cag-wb-yjdsq transfer: 3 (Trent) Walk 10 feet: 3 (Trent) PT Retirement Goals [place] Goals PT [place] Goals Time Frame: May 14, 2021 Roll Left & Right (QC): 6 Sit to Lying (QC): 4 Lying-Sitting on Side/Bed(QC): 4 Sit to Stand (QC): 4 Chair/Kxt-rc-Idbpf Xfer(QC): 4 Toilet Transfer (QC): 4 Car Transfer (QC): 4 Does the Patient Walk: Yes Walk 10 feet (QC): 4 Walk 50ft with 2 Turns (QC): 4 Walk 150 ft (QC): 88 Walking 10ft on Uneven Surface: 3 1 Step (curb) (QC): 4 4 Steps (QC): 88 12 Steps (QC): 88 Picking up an Object (QC): 88 Wheel 50 feet with 2 turns (QC: 9 Wheel 150 feet: 9 PT Plan Problem List Problem List: Activity Tolerance Treatment/Plan Treatment Plan: Continue Plan of Care Treatment Plan: Bed Mobility, Education, Functional Activity Marc, Functional Strength, Group Therapy, Gait, Safety, Therapeutic Exercise, Transfers Treatment Duration: May 14, 2021 Frequency: At least 5 of 7 days/Wk (IRF) Estimated Hrs Per Day: 1.5 hours per day Patient and/or Family Agrees t: Yes Time/GCodes Time In: 1330 Time Out: 1400 Total Billed Treatment Time: 30 Total Billed Treatment 1, GT x2 (30m) ROBI DANIEL CAPPER MACHINE OPERATOR May 07, 2021 14:29
[2021-05-07 20:31] VITALS: BP 98/63
[2021-05-08] MEDS: CATHETER FLUSH 10 ML SYR IV SCH ×2 (06:12→14:29)
[2021-05-08] MEDS ORDERED: BACL10TA PO (07:05)
[2021-05-08] MEDS ORDERED: TMSL.4C PO (07:05)
--- NOTE | 2021-05-08 07:06 | D/C HH Face to Face Order ---
D/C Face to Face Orders Reconcile Patient Problems Problems Reviewed?: Yes Instructions for Patient Home Health Patient Instructions/FollowUp: PCP [address] Zambrano Thursday as scheduled Physician to follow Patient: PCP Discharge Diet for Home: No Restrictions Patient Problems: Lumbar spine surgery Patient Data-Allergies,Ht & Wt Patient Allergies: Coded Allergies: hydrocodone (Verified Allergy, Mild, nausea, constipation, 01/08/21) Home Health Need/Face to Face Date of Face to Face: May 08, 2021 Clinical Findings: Generalized weakness and fatigue, Instability, Muscle weakness, Pain with ambulation, Unsteady gait I have seen Pt hwts-kt-wpzl: Yes Discharged To: Home Diagnosis/Conditions: Lumbar spine surgery Patient is Homebound due to: [place] fall risk due to instabilty, Muscle weakness, Pain w/ambulation Homebound Status Due to the above stated illness, injury or surgical procedure (medical condition or diagnosis) and associated clinical findings, the patient is homebound because of his/her inability to leave home except with aid of a supportive device and/or person AND leaving the home requires a considerable and taxing effort or is medically contraindicated. Pt req the following assistanc: [place] Home Health Nursing Orders Home Health Services Order: Nursing Services, Industrial Sewer-Evaluate & Treat, Physical Therapy-Evaluate & Treat Certify Stmt I certify that this patient is under my care and that I, a nurse practitioner or a physician; a mortgage loan assistant working with me, had a face to face encounter that - meets the physician face to face encounter requirements with this patient as dated. KARL CAMPBELL DO May 08, 2021 07:06
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
[2021-05-08 07:49] VITALS: BP 84/59
[2021-05-08] MEDS: TAMSULOSIN 0.4 MG (FLOMAX) CAP PO SCH (08:01)
[2021-05-08] MEDS: polyethylene glycoL POWDER 17 GM (MIRALAX) PACK PO SCH (08:01)
[2021-05-08] MEDS: DOCUSATE SODIUM 100 MG (COLACE) CAP PO SCH (08:01)
[2021-05-08] MEDS: SENNA W/DOCUSATE (SENOKOT S) TABLET PO SCH (08:01)
--- NOTE | 2021-05-08 11:12 | Therapy Team Discharge Summary ---
Therapy Discharge Summary Discharge Recommendations Date of Discharge Occupational Therapy Pt admitted to ARU s/p T10-L3 fusion and lumbar stenosis. At PLOF, pt was independent with ADLs and using FWW for functional mobility. Upon initial evaluation, pt required set up assistance with eating, min A oral care, max A showering, max A upper body dressing, max A lower body dressing, and total assist toileting. OT tx focused on increasing BUE strength and activity tolerance, and increasing safety and independence with ADLs. At discharge, pt was independent with eating and oral care, required set up assistance with showering, UE/LE dressing, and footwear, and required min A-CGA with toileting. Pt made good functional progress and met all LTGs. Pt discharged from facility, d/c from OT. Impaired Coordination, Impaired Funct Balance, Restricted Funct UE ROM PT Chief Inspector Goals Skilled Nursing Goals PT Skilled Nursing Goals Time Frame: May 14, 2021 Roll Left to Right (QC): 6 Sit to Lying (QC): 4 Lying-Sitting on Side/Bed(QC): 4 Sit to Stand (QC): 4 Chair/Cld-ip-Pxdnd Xfer(QC): 4 Car Transfer (QC): 4 Does the Patient Walk: Yes Walk 10 feet (QC): 4 Walk 10ft-Uneven Surface(QC): 3 Walk 50ft with 2 Turns (QC): 4 Walk 150 ft (QC): 88 Wheel 50 feet with 2 turns (QC: 9 1 Step (curb) (QC): 4 4 Steps (QC): 88 12 Steps (QC): 88 Picking up an Object (QC): 88 OT Skilled Nursing Goals Chief Inspector Goals Time Frame: May 17, 2021 Eating (QC): 6 (met) Oral Hygiene (QC): 6 (met) Shower/Bathe Self (QC): 4 (met) Upper Body Dressing (QC): 5 (met) Lower Body Dressing (QC): 5 (met) On/Off Footwear (QC): 5 (met) Toileting Hygiene (QC): 3 (met) Toilet/Commode Transfer (QC): 4 1=Demonstrate adherence to instructed precautions during ADL tasks. 2=Patient will verbalize/demonstrate understanding of assistive devices/modifications for ADL. 3=Patient will improve strength/tolerance for activity to enable patient to perform ADL's. [place] WALSH OT May 08, 2021 11:12
[2021-05-08] MEDS ORDERED: OXC5T PO (13:17)
--- NOTE | 2021-05-08 14:46 | Therapy Team Discharge Summary ---
Therapy Discharge Summary Discharge Recommendations Date of Discharge Physical Therapy Patient came to rehab s/p T10-L3 fusion. Upon evaluation patient performed bed mobility and supine <-> sit mod assist, sit <-> stand and transfers mod assist, car transfer mod assist, and ambulated 6' in the parallel bars with mod assist. Patient has been performing bed mobility and transfer training, balance and endurance training, functional strengthening, stair training, gait training, and education. 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 Now, patient performs bed mobility and supine <-> sit with independence, sit <-> stand and transfers with CGA, car transfer CGA, ambulates 250' with a rolling walker with CGA (including 50' with at least 2 turns of 90 degrees and 10' over an uneven surface), and can go up and down 1 step using a rolling walker with CGA. Patient is being discharged from this facility today and will be discharged from PT at this time. 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 Goals Time Frame: May 14, 2021 Roll Left to Right (QC): 6 Sit to Lying (QC): 4 Lying-Sitting on Side/Bed(QC): 4 Sit to Stand (QC): 4 Chair/Coj-nr-Dshkf Xfer(QC): 4 Car Transfer (QC): 4 Does the Patient Walk: Yes Walk 10 feet (QC): 4 Walk 10ft-Uneven Surface(QC): 3 Walk 50ft with 2 Turns (QC): 4 Walk 150 ft (QC): 88 Wheel 50 feet with 2 turns (QC: 9 1 Step (curb) (QC): 4 4 Steps (QC): 88 12 Steps (QC): 88 Picking up an Object (QC): 88 OT Dieing Out Machine Operator Goals Long-Term Goals Time Frame: May 17, 2021 Eating (QC): 6 (met) Oral Hygiene (QC): 6 (met) Shower/Bathe Self (QC): 4 (met) Upper Body Dressing (QC): 5 (met) Lower Body Dressing (QC): 5 (met) On/Off Footwear (QC): 5 (met) Toileting Hygiene (QC): 3 (met) Toilet/Commode Transfer (QC): 4 1=Demonstrate adherence to instructed precautions during ADL tasks. 2=Patient will verbalize/demonstrate understanding of assistive devices/modifications for ADL. 3=Patient will improve strength/tolerance for activity to enable patient to perform ADL's. RORY FRANCOIS PT May 08, 2021 14:46
[2021-05-08 17:02] VITALS: BP 84/59
== END 2021-05-08 17:00 | disposition home health service (06) | DRG 552 ==
PROVIDERS: ADMIT Internal Medicine; ATTEND Internal Medicine
DX: M47.16 Other spondylosis with myelopathy, lumbar region (principal); Z47.89 Encounter for other orthopedic aftercare; Z98.1 Arthrodesis status; N31.9 Neuromuscular dysfunction of bladder, unspecified; N40.1 Benign prostatic hyperplasia with lower urinary tract symptoms; R33.8 Other retention of urine; Z89.222 Acquired absence of left upper limb above elbow; Z89.221 Acquired absence of right upper limb above elbow; K59.00 Constipation, unspecified; G47.33 Obstructive sleep apnea (adult) (pediatric); F41.9 Anxiety disorder, unspecified; H61.23 Impacted cerumen, bilateral; Z88.6 Allergy status to analgesic agent; Z23 Encounter for immunization
CPT/HCPCS: 36415; 80053; 81000; 85025